=== PATIENT | female | born 1955 | race Caucasian/White ===

== ENCOUNTER 2017-08-24 17:16 | Inpatient (IN) | payer OTHER ==
[~2017-08-24] VITALS: Ht 160 cm; Wt 70.4 kg
--- NOTE | 2017-08-24 17:26 | ED DYSPNEA/ASTHMA COMPLAINT ---
History of Present Illness General Chief Complaint: Dyspnea (COPD, CHF, Other) Stated Complaint: SENT BY CT SCAN, +PE Source: patient, family Exam Limitations: no limitations Allergies Coded Allergies: hydromorphone (Severe, SEVERE REACTION (UNKNOWN) 08/24/17) codeine (UNKNOWN 08/24/17) imipenem (UNKNOWN 08/24/17) latex (UNKNOWN 08/24/17) Reconcile Medications Apixaban (Eliquis) 5 MG TABLET 1 TAB PO SEE ADMIN CRITERIA PULMONARY EMBOLUS See instructions below, Aspirin (Ecotrin*) 81 MG TABLET.DR 1 TAB PO DAILY PREVENTION (Reported) Carvedilol 6.25 MG TABLET 1 TAB PO BID HEART HEALTH Cholecalciferol (Vitamin D3) (Vitamin D-3) 2,000 UNIT TABLET 2 TAB PO DAILY SUPPLEMENT (Reported) Cyanocobalamin (Vitamin B-12) (Vitamin B-12) 500 MCG TABLET 1 TAB PO BID SUPPLEMENT (Reported) Diphenhydramine HCl 50 MG CAPSULE 50 MG PO Q6 PRN ITCHING Empagliflozin (Jardiance) 25 MG TABLET 1 TAB PO DAILY DIABETES (Reported) Ethacrynic Acid (Edecrin) 25 MG TABLET 2 TAB PO DAILY HEART Please take as directed. Gabapentin (Neurontin) 300 MG CAPSULE 1 CAP PO 4 TIMES/DAY NEUROPATHY ( Reported) Glimepiride 4 MG TABLET 1 TAB PO AD DIABETES (Reported) TAKE 2 MG IN AM AND 4 MG IN PM Hydrocortisone 1 % CREAM..G. 1 ZULMA TOP TIDPRN PRN ITCHING Please do not use on the face Hydroxyzine Hydrochloride (Atarax) 25 MG TAB 1 TAB PO 4 TIMES/DAY PRN ITCHING Please take as directed only. Lorazepam 0.5 MG TABLET 1 TAB PO BIDP PRN ANXIETY (Reported) Losartan Potassium 25 MG TABLET 1 TAB PO AT BEDTIME BLOOD PRESSURE (Reported) Lovastatin 40 MG TABLET 2 TAB PO DAILY CHOLESTEROL (Reported) with food Nortriptyline HCl (Pamelor) 50 MG CAPSULE 1 CAP PO QHS NEUROPATHY (Reported) Pyridoxine HCl (Vitamin B-6) 50 MG TABLET 1 TAB PO 3XW SUPPLEMENT (Reported) Sertraline HCl 100 MG TABLET 1 TAB PO DAILY MOOD (Reported) Sitagliptin Phosphate (Januvia) 100 MG TABLET 1 TAB PO DAILY DIABETES ( Reported) Solifenacin Succinate (Vesicare) 5 MG TABLET 1 TAB PO DAILY BLADDER (Reported ) Triage Nurses Notes Reviewed? yes Onset: Gradual Duration: week(s): (1-2) Timing: no prior history Severity: moderate Activities at Onset: none Prior Episodes/Possible Cause: no prior episodes Modifying Factors: Improves With: immobilization. Worsens With: movement. Associated Symptoms: cough HPI: Patient is a 62-year-old female with remote history of spinal blood clot in 2002 presenting to the emergency department with chief complaint of increasing shortness of breath, epigastric discomfort and fluttering in her chest has been going on intermittently over the past 2 weeks. Symptoms worse with exertion. Patient is wheelchair bound secondary to residual symptoms from previous blood clot in her spinal cord. Patient denies any fevers or chills. Positive dry cough. Patient also reports increasing swelling in the lower ext bilaterally, right greater than left. (Zuri Roman) Vital Signs & Intake/Output Vital Signs & Intake/Output Vital Signs Date Time Temp Pulse Resp B/P B/P Pulse O2 O2 Flow FiO2 Mean Ox Delivery Rate 08/24 2112 116 18 118/74 97 Room Air 08/24 2021 97.7 59 16 131/60 93 Room Air 08/24 1801 98 Room Air 08/24 1725 96.9 118 20 101/55 97 Room Air Room Air (Yash Mcgee DO) Past History Travel History Traveled to [place] past 21 day No Medical History Any Pertinent Medical History? see below for history History of MRSA: No History of VRE: No History of CDIFF: No Surgical History Surgical History: non-contributory Psychosocial History Who do you live with Patient/Self Services at Home None What is your primary language Swedish Family History Hx Contributory? No (Zuri Roman) Review of Systems Review of Systems Constitutional: Reports: see HPI. Comments Review of systems: See HPI, All other systems negative. Constitutional, no chills fever or weight loss HEENT: No visual changes no sore throat no congestion Cardiovascular: No chest pain ,palpitation , orthopnea Skin, no jaundice no rashes Respiratory: No sputum or hemoptysis GI: No nausea no vomiting : No dysuria No hematuria Muscle skeletal: no back pain, no neck pain, Neurologic: No numbness no confusion, no headaches Psych: No stress anxiety or depression,. Heme/endocrine: No bruising no bleeding no polyuria or polydipsia Immunology: No splenectomy or history of AIDS (Norman FORRESTER,Zuri) Physical Exam Physical Exam General Appearance: well developed/nourished, no apparent distress, alert, awake , comfortable Respiratory: normal breath sounds, chest non-tender, no respiratory distress Comments: Well-developed well-nourished person in no acute distress HEENT: Pupils equally round and reactive to light and accommodation. Nose is atraumatic. External auditory canal and Tympanic membranes clear. Pharynx normal. No swelling or edema. Neck: Supple, no lymphadenopathy Back: Nontender Cardiovascular: Tachycardic rate and rhythms no murmurs rubs or gallops, normal JVP Respiratory:No respiratory distress.breath sounds clear to auscultation bilaterally Abdomen: Soft, nontender nondistended, no appreciable organomegaly. Normal bowel sounds. No ascites Rectal: Brown stool, guaiac-negative. Extremity: 3+ pitting edema in the lower extremities bilaterally, right greater than left. No calf tenderness to palpation, normal and equal pulses. Poor muscle tone noted in the lower extremities bilaterally secondary to residual symptoms. Neuro: Alert oriented x3, residual deficits in the lower extremities bilaterally secondary to old stroke. Skin: No appreciable rash on exposed skin, skin is warm and dry. Psych: Mood and affect is normal, memory and judgment is normal. Core Measures ACS in differential dx? Yes CVA/TIA Diagnosis No Sepsis Present: No Sepsis Focused Exam Completed? No (Zuri Roman) Progress Differential Diagnosis: asthma, AMI, bronchitis, COPD, pulmonary embolism, pneumonia Diagnostic Imaging: Viewed by Me: CT Scan. Discussed w/RAD: CT Scan. Radiology Impression: PATIENT: VIDYA FREEMAN PRESENT AGE: 62 PATIENT ACCOUNT NO: [id number] : 53 LOCATION: [facility] ORDERING PHYSICIAN: Zuri FORRESTER SERVICE DATE: 08/24/17 EXAM TYPE: US - US-EXT BILAT VENOUS DOPPLER EXAMINATION: US TRIPLEX OF LOWER EXTREMITIES, BILATERAL CLINICAL INFORMATION: Bilateral lower extremity swelling. Patient with a pulmonary embolism. COMPARISON: 09/12/2012 TECHNIQUE: Color-flow triplex imaging with spectral analysis and compression Doppler were performed on the bilateral lower extremities. FINDINGS: Respiratory variation, normal compression and augmented flow are noted throughout the bilateral lower extremities. The visualized common femoral vein, superficial femoral vein, profunda femoral vein, popliteal vein and midcalf peroneal and posterior tibial venous segments show no evidence of deep venous thrombosis. There is no Spencer's cyst. IMPRESSION: Normal triplex scan without evidence of deep venous thrombosis involving the bilateral lower extremities. DICTATED BY: Zunilda BORDEN,Tao DATE/TIME DICTATED:08/24/172100 NATURAL GAS TREATING UNIT OPERATOR:ERWIN DATE/TIME TRANSCRIBED:08/24/172100 CONFIDENTIAL, DO NOT COPY WITHOUT APPROPRIATE AUTHORIZATION. <Electronically signed in Other Vendor System> Initial ED EKG: SINUS TACH 114 BPM (Norman FORRESTER,Zuri) Plan of Care: Orders Procedure Date/time Status Consistent Carbohydrate 1 08/25 B Active TROPONIN LEVEL 08/25 599 Active ICU LAB BUNDLE 08/25 599 Active CBC WITHOUT DIFFERENTIAL 08/25 599 Active EKG 08/25 599 Active TROPONIN LEVEL 08/24 2355 Active EKG 08/24 2355 Active Intake & Output 08/24 203 Active Pathway - chart 08/24 2025 Active URINALYSIS 08/24 202 Active Patient Data 08/24 1949 Active Add-on Test (ER Only) 08/24 1857 Active ECHOCARDIOGRAM 08/24 1837 Active Admit to inpatient 08/24 1829 Active Vital Signs 08/24 1829 Active Code Status 08/24 1829 Active Tom, Insertion/Removal/Asses 08/24 1755 Active CULTURE,URINE 08/24 1755 Active B-TYPE NATRIURETIC PEP (BNP) 08/24 1727 Complete Telemetry/Maintenance Leader 08/24 1723 Active TROPONIN LEVEL 08/24 1723 Complete PARTIAL THROMBOPLASTIN TIME 08/24 1723 Complete PROTHROMBIN TIME 08/24 1723 Complete COMPREHENSIVE METABOLIC PANEL 08/24 1723 Complete CBC WITHOUT DIFFERENTIAL 08/24 1723 Complete EKG 08/24 1723 Active TRC EVALUATION (GEN) 08/24 UNK Active House Staff 08/24 UNK Active FingerStick- Glucose 08/24 UNK Active Current Medications Sig/Pita Start time Last Medication Dose Stop Time Status Admin Aspirin Buffered 81 MG DAILY 08/25 1000 UNVr (Ecotrin) Cholecalciferol 4,000 IU DAILY 08/25 1000 AC (Vitamin D) Pyridoxine HCl 50 MG DAILY 08/25 1000 AC (Vitamin B6) Sertraline HCl 100 MG DAILY 08/25 1000 AC (Zoloft) Trimethoprim/ 1 TAB DAILY 08/25 1000 AC Sulfamethoxazole 08/26 0959 (Bactrim SS) Insulin Aspart 0 TIDAC 08/25 799 CAN (NovoLOG) Insulin Aspart 0 TIDAC 08/25 08 AC (NovoLOG) Cyanocobalamin 500 MCG BID 08/24 2199 AC (Vitamin B12) Gabapentin 300 MG 4 TIMES/DAY 08/24 2199 AC (Neurontin) Insulin Aspart 0 AT BEDTIME 08/24 2199 AC (NovoLOG) Lorazepam 0.5 MG BID PRN 08/24 2199 AC (Ativan) 08/31 2058 Nortriptyline HCl 50 MG AT BEDTIME 08/24 2199 AC (Aventyl 50MG - Pamelor Cap) Oxybutynin Chloride 2.5 MG BID 08/24 2199 AC (Ditropan 2.5MG Tab(1/2 of a 5mg tab)) Atorvastatin Calcium 20 MG 1700 08/24 2099 UNVr (Lipitor) Acetaminophen 650 MG Q6P PRN 08/24 2029 UNVr (Tylenol) Morphine Sulfate 2 MG Q4P PRN 08/24 2029 AC (Morphine) Heparin Sodium 25,000 UNIT Q24H 08/24 1800 UNVr 08/24 (Porcine) 1929 (Heparin) Sodium Chloride 500 ML Laboratory Tests 08/24/17 1727: Anion Gap 15, Estimated GFR > 60, BUN/Creatinine Ratio 38.3 H, Glucose 112 H, Calcium 9.4, Total Bilirubin 0.6, AST 41 H, ALT 48, Alkaline Phosphatase 98, Troponin I < 0.01, Maj-R-Irsmkozeigd Pept 1530 H, Total Protein 6.9, Albumin 4.1, Globulin 2.8, Albumin/Globulin Ratio 1.5, PT 14.3 H, INR 1.37 H, APTT 27, CBC w Diff NO MAN DIFF REQ, RBC 5.10, MCV 76.6 L, MCH 24.1 L, MCHC 31.5 L, RDW 17.0 H, MPV 8.9, Gran % 78.7 H, Lymphocytes % 14.9 L, Monocytes % 5.2, Eosinophils % 0.8, Basophils % 0.4, Absolute Granulocytes 5.4, Absolute Lymphocytes 1.0 L, Absolute Monocytes 0.4, Absolute Eosinophils 0.1, Absolute Basophils 0 Microbiology 08/24 2008 URINE ROUT: Urine Culture - RECD Patient had outpatient CTA done, positive for pulmonary embolus. Patient will be admitted for IV heparin. Patient stable. Seen by Dr. Mcgee. (Zuri Roman) (Yash Mcgee DO) Departure Departure Time of Disposition: 1726 Disposition: STILL A PATIENT Condition: Stable Clinical Impression Primary Impression: Pulmonary embolus Qualifiers: Pulmonary embolism type: other Chronicity: acute Acute cor pulmonale presence: without acute cor pulmonale Qualified Code: I26.99 - Other pulmonary embolism without acute cor pulmonale Referrals: Tobin Heriberto BORDEN (PCP/Family) Departure Forms: Customer Survey General Discharge Information Prescriptions: Current Visit Scripts Diphenhydramine HCl 50 MG PO Q6 PRN ITCHING #20 TAB Carvedilol 1 TAB PO BID #30 TAB Apixaban (Eliquis) 1 TAB PO SEE ADMIN CRITERIA #60 TAB See instructions below, Hydroxyzine Hydrochloride (Atarax) 1 TAB PO 4 TIMES/DAY PRN ITCHING #30 TAB Please take as directed only. Ethacrynic Acid (Edecrin) 2 TAB PO DAILY #60 TAB Please take as directed. Hydrocortisone 1 ZULMA TOP TIDPRN PRN ITCHING #1 TUBE Please do not use on the face Admission Note Documentation of Exam: Documentation of any treatments & extenuating circumstances including Concerns Regarding Discharge (functional status, medication knowledge or non-compliance, living conditions, etc.) that warrant an admission rather than observation: DR GRANDE INFORMED. (Zuri Roman) Admission Note Spoke With: Matthieu Silveira MD Documentation of Exam: Documentation of any treatments & extenuating circumstances including Concerns Regarding Discharge (functional status, medication knowledge or non-compliance, living conditions, etc.) that warrant an admission rather than observation: [THE PATIENT NEEDS ADMISSION FOR CARDIOLOGY AND PULMONARY CONSULTS, ICU ADMISSION, LE US, ECHO, ] SPOKE TO DR BUENO. DR GRANDE PAGEMelissa, HEPARIN ORDERED. PA/POURED PIPE MAKER Co-Sign Statement Statement: ED Attending supervision documentation- [X] I saw and evaluated the patient. I have also reviewed all the pertinent lab results and diagnostic results. I agree with the findings and the plan of care as documented in the PA's/POURED PIPE MAKER's documentation. [] I have reviewed the ED Record and agree with the PA's/POURED PIPE MAKER's documentation. [] Additions or exceptions (if any) to the PAs/POURED PIPE MAKER's note and plan are summarized below: [] (Yash Mcgee DO) Critical Care Note Critical Care Note Critical Care Time: 30-74 min (Norman FORRESTER,Zuri)
[2017-08-24 17:40] LABS: ABSOLUTE BASOPHIL COUNT 0 /CUMM (0.0-0.2); ABSOLUTE EOSINOPHIL COUNT 0.1 /CUMM (0.0-0.7); ABSOLUTE GRANULOCYTE CT 5.4 /CUMM (1.4-6.5); ABSOLUTE MONOCYTE COUNT 0.4 /CUMM (0.10-0.60); BASOPHIL % 0.4 % (0.0-2.0); EOSINOPHIL % 0.8 % (0-5); GRANULOCYTE % 78.7 % (42.2-75.2); HEMATOCRIT 39.1 % (37-47); MEAN CORPUSCULAR HGB 24.1 PG (27.0-31.0); MEAN CORPUSCULAR HGB CONC 31.5 G/DL (33.0-37.0); MEAN CORPUSCULAR VOLUME 76.6 FL (81.0-99.0); MEAN PLATELET VOLUME 8.9 FL (7.4-10.4); PLATELET COUNT 219 /CUMM (130-400); WHITE BLOOD CELL COUNT 6.9 /CUMM (4.8-10.8)
[2017-08-24 17:49] LABS: PT 14.3 SEC (9.4-12.5); PTT 27 SEC (25-37)
--- NOTE | 2017-08-24 19:54 | History & Physical ---
[place] BORDEN,[facility] 08/24/17 [facility]: General Information and [facility] MD Statement: I have seen and personally examined VIDYA FREEMAN and documented this H&P. The patient is a 62 year old F who presented with a patient stated chief complaint of [Shortness of breath, leg swelling, cough]. Source of Information: patient, family Exam Limitations: no limitations History of Present Illness: The patient is a 62-year-old woman with a past medical history of asthma, paraplegia status post spinal infarct in 2001, homocystinemia, diabetes, peripheral neuropathy, urinary incontinence, hypertension, diabetes, pseudo-gout , and gallstone pancreatitis hospital post cholecystectomy in 2012. She presents today with an 8 day history of shortness of breath that is worse on exertion with occasional nonproductive cough. She developed shortness of breath at home with associated worsening on exertion and relief when she stops to rest. She denied chest pains, lightheadedness or palpitations but did admit to bilateral leg swelling (right greater than left ) since the past 2 weeks which is worse than her baseline. Of note patient is paraplegic and does not feel pain sensations below the waist. She denied orthopnea. She did have a nonproductive cough for the past 8 days, but denied nasal congestion, fevers or chills. She denied loss of appetite, nausea or vomiting or change in bowel movements. She denies change in color of her urine and is on a self- catheterization protocol for urination. sHe denies headaches or new weakness in any part of the body. overall shortness of breath she presented to our primary care physician Dr. oTbin's office and was sent for a CT angiogram by his PA Jailene Richter. CT angiogram showed cardiomegaly and scattered bilateral bilateral pulmonary embolism and suggestions of elevated right-sided pressure. She was then sent to the ER for further evaluation and management. Allergies/Medications Allergies: Coded Allergies: hydromorphone (Severe, SEVERE REACTION (UNKNOWN) 08/24/17) codeine (UNKNOWN 08/24/17) imipenem (UNKNOWN 08/24/17) latex (UNKNOWN 08/24/17) Home Med list Aspirin (Ecotrin*) 81 MG TABLET. 1 TAB PO DAILY PREVENTION (Reported) Cholecalciferol (Vitamin D3) (Vitamin D-3) 2,000 UNIT TABLET 2 TAB PO DAILY SUPPLEMENT (Reported) Cyanocobalamin (Vitamin B-12) (Vitamin B-12) 500 MCG TABLET 1 TAB PO BID SUPPLEMENT (Reported) Empagliflozin (Jardiance) 25 MG TABLET 1 TAB PO DAILY DIABETES (Reported) Gabapentin (Neurontin) 300 MG CAPSULE 1 CAP PO 4 TIMES/DAY NEUROPATHY ( Reported) Glimepiride 4 MG TABLET 1 TAB PO AD DIABETES (Reported) TAKE 2 MG IN AM AND 4 MG IN PM Lorazepam 0.5 MG TABLET 1 TAB PO BIDP PRN ANXIETY (Reported) Losartan Potassium 25 MG TABLET 1 TAB PO AT BEDTIME BLOOD PRESSURE (Reported) Lovastatin 40 MG TABLET 2 TAB PO DAILY CHOLESTEROL (Reported) with food Nortriptyline HCl (Pamelor) 50 MG CAPSULE 1 CAP PO QHS NEUROPATHY (Reported) Pyridoxine HCl (Vitamin B-6) 50 MG TABLET 1 TAB PO 3XW SUPPLEMENT (Reported) Sertraline HCl 100 MG TABLET 1 TAB PO DAILY MOOD (Reported) Sitagliptin Phosphate (Januvia) 100 MG TABLET 1 TAB PO DAILY DIABETES ( Reported) Solifenacin Succinate (Vesicare) 5 MG TABLET 1 TAB PO DAILY BLADDER (Reported ) Sulfamethoxazole/Trimethoprim (Bactrim 400-80 MG Tablet) 400 MG-80 MG TABLET 1 TAB PO DAILY PREVENTION OF INFECTION (Reported) Past History Travel History Traveled to [place] past 21 day No Medical History Neurological: NONE, SPINAL BLOOD CLOT EENT: NONE Cardiovascular: hypertension, hyperlipidemia Respiratory: asthma Gastrointestinal: GERD Hepatic: NONE Renal: SELF CATH Musculoskeletal: NONE Psychiatric: NONE Endocrine: diabetes Blood Disorders: SPINAL CLOT Cancer(s): NONE History of MRSA: No History of VRE: No History of CDIFF: No Surgical History Surgical History: cholecystectomy Past Family/Social History Psychosocial History Services at Home: None ETOH Use: denies use Illicit Drug Use: denies illicit drug use Review of Systems Review of Systems Constitutional: Reports: see HPI. Denies: fever, malaise, weakness. Exam & Diagnostic Data Last 24 Hrs of Vital Signs/I&O Vital Signs Date Time Temp Pulse Resp B/P B/P Pulse O2 O2 Flow FiO2 Mean Ox Delivery Rate 08/24 2112 116 18 118/74 97 Room Air 08/24 2021 97.7 59 16 131/60 93 Room Air 08/24 1801 98 Room Air 08/24 172 96.9 118 20 101/55 97 Room Air Room Air Physical Exam General Appearance Alert, Oriented X3, Cooperative, No Acute Distress Skin No Rashes Skin Temp/Moisture Exam: Warm/Dry Sepsis Skin Exam (color): Normal for Ethnicity HEENT Atraumatic, PERRLA, EOMI, Dry mucus membranes Neck Supple, No JVD, No thryomegaly, +2 Carotid Pulse wo Bruit Lymphatic Cervical nl Cardiovascular Regular Rate, Normal S1, Normal S2 Lungs Normal Air Movement, Bibasilar coarse crepitations Abdomen Normal Bowel Sounds, Soft, No Tenderness, No Hepatospenomegaly, No Masses Neurological Hypotonia and grade 0/5 power in bilateral lower limbs, Reduced sensation in bilateral lower limbs worse in left Extremities Right big toe and 3rd toe has neuropathic ulcers covered with bandaids, Bilateral +2 pitting pedal edema and some mild erythema in both lower limbs Vascular Normal Pulses Last 24 Hrs of Labs/Phliip: Laboratory Tests 08/24/17 1727: Anion Gap 15, Estimated GFR > 60, BUN/Creatinine Ratio 38.3 H, Glucose 112 H, Calcium 9.4, Total Bilirubin 0.6, AST 41 H, ALT 48, Alkaline Phosphatase 98, Troponin I < 0.01, [id number] Pept 1530 H, Total Protein 6.9, Albumin 4.1, Globulin 2.8, Albumin/Globulin Ratio 1.5, PT 14.3 H, INR 1.37 H, APTT 27, CBC w Diff NO MAN DIFF REQ, RBC 5.10, MCV 76.6 L, MCH 24.1 L, MCHC 31.5 L, RDW 17.0 H, MPV 8.9, Gran % 78.7 H, Lymphocytes % 14.9 L, Monocytes % 5.2, Eosinophils % 0.8, Basophils % 0.4, Absolute Granulocytes 5.4, Absolute Lymphocytes 1.0 L, Absolute Monocytes 0.4, Absolute Eosinophils 0.1, Absolute Basophils 0 Microbiology 08/24 2008 URINE ROUT: Urine Culture - RECD Diagnostic Data EKG Results EKG shows sinus tachycardia with heart rate of 1 22 bpm QTC [address] segment changes and no Q waves similar to previous. Assessment/Plan Assessment: The patient is a 62-year-old woman with a past medical history of asthma, paraplegia status post spinal infarct in 2001, homocystinemia, diabetes, peripheral neuropathy, urinary incontinence, hypertension, diabetes, pseudo-gout , and gallstone pancreatitis hospital post cholecystectomy in 2013. She presents today with an 8 day history of shortness of breath that is worse on exertion with occasional nonproductive cough. A CT angiogram of her chest showed scattered bilateral pulmonary embolisms along with Cardiomegaly and some signs of elevated RV pressures. She'll be admitted and monitored closely in the ICU for a pulmonary embolism. Intravenous anticoagulation will be started with IV heparin. Of note, she does after to have a past history of thromboembolic events with spinal cord infarct and possible homocystinemia so she will likely have to be anticoagulated on a long-term basis. Problem list 1. Bilateral pulmonary embolism with history of previous thromboembolic events and homocystinemia 2. Hypertension 3. Diabetes mellitus with peripheral neuropathy 4. Paraplegia status post spinal cord infarct 5. History of asthma with emphysema on CT scan of chest 6. Depression 7. Ex-smokerquit 2 weeks ago Plan 1. Bilateral pulmonary embolism with history of previous thromboembolic events and homocystinemia * Admit to ICU * Start IV heparin drip for anticoagulation with pulmonary embolism protocol * Monitor vital signs closely and if desaturates or has hypotension will consider TPA infusion * Echocardiogram now to assess for * Doppler ultrasound of lower limb * Serial EKGs and troponins * Cardiology consultation * Hold losartan home medication on account of normal blood pressures at this time * Monitor CBC for anemia and pancytopenia while on heparin therapy * Patients Pro BNP was elevated at 1530 pg/ml which could be reflective of her pulmonary embolism or overt heart failure 2. Hypertension * Hold losartan home medication on account of normal blood pressures at this time 3. Diabetes mellitus with peripheral neuropathy * Hold home medication of Januvia, glimepiride and Jardiance * Accu-Cheks 3 times a day before meals at bedtime * Start NovoLog sliding scale 3 times a day before meals at bedtime * Diabetic diet * Continue gabapentin and nortriptyline for neuropathic 4. Paraplegia status post spinal cord infarct * Offloading pressure points with heel pads as patient is paraplegic * Daily dressing for Right toe ulcers (Big toe and 3rd toe) 5. History of asthma with emphysema on CT scan of chest * [facility] evaluation for nebulizer therapy * Oxygen as needed to keep PO2 greater than 92% 6. Depression * Continue by mouth sertraline 7. Ex-smokerquit 2 weeks ago * Patient refused nicotine patch DVT prophylaxis IV heparin drip CODE STATUS: Patient is full code As Ranked By This Provider Problem List: 1. Pulmonary embolus Qualifiers Pulmonary embolism type: other Chronicity: acute Acute cor pulmonale presence: without acute cor pulmonale Qualified Code: I26.99 - Other pulmonary embolism without acute cor pulmonale 2. history of thrombosis 3. Homocystinemia 4. Depression 5. Benign essential hypertension Core Measures/Misc (04/04) Acute Coronary Syndrome ACS Diagnosis: No Congestive Heart Failure Congestive Heart Failure Diagnosis No Cerebrovascular Accident CVA/TIA Diagnosis: No VTE (View Protocol) VTE Risk Factors VTE (Previous) No Mechanical VTE Prophylaxis d/t N/A MechProphylax Ordered No VTE Pharm Prophylaxis d/t NA PharmProphylax ordered Sepsis (View protocol) Sepsis Present: No Jordana,Aartee 08/25/17 0318: Attending MD Review Statement Attending Statement Attending MD Statement: examined this patient, discuss w/resident/PA/LETTUCE CUTTER, agreed w/resident/PA/LETTUCE CUTTER, reviewed EMR data (avail), reviewed images, amended to note Attending Assessment/Plan: CC: SOB PMH: Paraplegia SBP spinal artery infarction in 2001, ?homocystinemia, DM, pseudogout, urinary incontinence a straight cath, HTN, HLD, S/P cholecystectomy Patient came to ER for shortness of breath for a few days duration and abdominal pain felt like a gallbladder attack. Shortness of breath started approximately a couple of weeks back, she was trying to make an appointment with primary care physician. She was seen today and CT chest was obtained which showed pulmonary embolism so she was sent to ER. Patient states that her shortness of breath is more on exertion, eventually even minimal activity was making her short of breath . Patient denies any chest pain, chest tightness, nausea, vomiting, dizziness, presyncopal, and loss of consciousness, fever, chills, night sweats, unintentional weight loss. Patient is wheelchair-bound secondary to paraplegia. Over a longer duration she has noticed gradual worsening of lower extremity swelling. Vitals: Temperature 96.9, pulse 118, RR 20, blood pressure 101/55, saturating 97 % on room air On exam: A O 3, cooperative, no acute distress, neck supple, JVD normal, no lymphadenopathy, mucosa dry, no focal neurological deficit, bilateral lower extremity edema right more than left, no obvious skin rashes or inflammation CVS : S1-S2, RRR, tachycardia. RS: Minimal crackles bilaterally bases. Abdomen: Soft , NT, ND, bowel sounds present. Labs: WBC 6.9, hemoglobin 12.3, hematocrit 39.1, platelet 219, neutrophils 78%, sodium 144, potassium 4.5, chloride 104, bicarbonate 25, BUN 23, creatinine 0.6, glucose 112, calcium 9.4, LFT unremarkable, troponin less than 0.01, proBNP INR 1.37 CTA chest: 1. Scattered bilateral pulmonary emboli. 2. Cardiomegaly. Reflux of contrast into the inferior vena cava and hepatic veins suggests presence of tricuspid regurgitation and elevated right-sided cardiac pressures. No inward bowing of the interventricular septum. The RV/LV ratio is normal. 3. Mild pulmonary emphysema. 4. Small right pleural effusion. 5. Within the upper abdomen, the finding of pneumobilia is likely secondary to prior papillotomy. 2-D echo: Mild left ventricular dilatation. Moderately reduced global left ventricular systolic function. Moderately abnormal left ventricular ejection fraction estimated at 35-40%. No obvious regional wall motion abnormalities. Mild to moderate left atrial dilatation. Mild thickening/calcification of the mitral valve leaflets. Moderate to marked mitral regurgitation. Structurally normal trileaflet aortic valve. No aortic stenosis. There is mild aortic regurgitation. Right ventricular systolic pressure estimated to be elevated at 50- 55 mmHg. Moderate pulmonary hypertension. Dilated IVC. DVT Doppler: Normal triplex scan without evidence of deep venous thrombosis involving the bilateral lower extremities. Assessment and plan 62 year old female, wheelchair-bound, extensive past medical history presented to ER after diagnosis of pulmonary embolism on CTA. Patient had been noticing worsening of shortness of breath, more so with the exertion, followed up with primary care physician who obtained CTA. Patient states that she had clot in her spinal artery for which she developed infarct and paraplegia, at that time she was thoroughly investigated for hypercoagulability. She was suspected to have homocystinemia but no certain diagnosis was done. CTA suggests right heart strain. No acute ECG changes, hemodynamically stable, no excessive oxygen requirement. But given her right heart strain we will monitor her in the ICU, hourly vitals. On-call critical care had been informed. + Acute bilateral pulmonary embolism + Suspected right heart strain + History of Paraplegia SBP spinal artery infarction in 2001, ?homocystinemia, DM, pseudogout, urinary incontinence a straight cath, HTN, HLD, S/P cholecystectomy - Admit to ICU - vitals every hourly - Watch for hypoxia - Serial troponin and EKGs - Cardiology consult - Pulmonary consult - Continue heparin - Hold oral hypoglycemics - Continue sliding scale insulin - Hold antihypertensives for tonight, a blood pressure stable overnight dressing from tomorrow - Adequate pain control - Obtain UA - Continue Tom catheter
--- NOTE | 2017-08-24 19:55 | Cons- CRCU ---
Savannah BORDEN,[facility] 08/24/17 [facility]: General Information and HPI Consulting Request Date of Consult: 08/24/17 Requested By: Dr. Silveira Reason for Consult: Bilateral pulmonary embolism Source of Information: patient, family Exam Limitations: no limitations History of Present Illness: The patient is a 62-year-old woman with a past medical history of asthma, paraplegia status post spinal infarct in 2001, homocystinemia, diabetes, peripheral neuropathy, urinary incontinence, hypertension, diabetes, pseudo-gout , and gallstone pancreatitis hospital post cholecystectomy in 2012. She presents today with an 8 day history of shortness of breath that is worse on exertion with occasional nonproductive cough. She developed shortness of breath at home with associated worsening on exertion and relief when she stops to rest. She denied chest pains, lightheadedness or palpitations but did admit to bilateral leg swelling (right greater than left ) since the past 2 weeks which is worse than her baseline. Of note patient is paraplegic and does not feel pain sensations below the waist. She denied orthopnea. She did have a nonproductive cough for the past 8 days, but denied nasal congestion, fevers or chills. She denied loss of appetite, nausea or vomiting or change in bowel movements. She denies change in color of her urine and is on a self- catheterization protocol for urination. sHe denies headaches or new weakness in any part of the body. overall shortness of breath she presented to our primary care physician Dr. Tobin's office and was sent for a CT angiogram by his PA Jailene Richter. CT angiogram showed cardiomegaly and scattered bilateral bilateral pulmonary embolism and suggestions of elevated right-sided pressure. She was then sent to the ER for further evaluation and management. Allergies/Medications Allergies: Coded Allergies: hydromorphone (Severe, SEVERE REACTION (UNKNOWN) 08/24/17) codeine (UNKNOWN 08/24/17) imipenem (UNKNOWN 08/24/17) latex (UNKNOWN 08/24/17) Home Med List: Aspirin (Ecotrin*) 81 MG TABLET.DR 1 TAB PO DAILY PREVENTION (Reported) Cholecalciferol (Vitamin D3) (Vitamin D-3) 2,000 UNIT TABLET 2 TAB PO DAILY SUPPLEMENT (Reported) Cyanocobalamin (Vitamin B-12) (Vitamin B-12) 500 MCG TABLET 1 TAB PO BID SUPPLEMENT (Reported) Empagliflozin (Jardiance) 25 MG TABLET 1 TAB PO DAILY DIABETES (Reported) Gabapentin (Neurontin) 300 MG CAPSULE 1 CAP PO 4 TIMES/DAY NEUROPATHY ( Reported) Glimepiride 4 MG TABLET 1 TAB PO AD DIABETES (Reported) TAKE 2 MG IN AM AND 4 MG IN PM Lorazepam 0.5 MG TABLET 1 TAB PO BIDP PRN ANXIETY (Reported) Losartan Potassium 25 MG TABLET 1 TAB PO AT BEDTIME BLOOD PRESSURE (Reported) Lovastatin 40 MG TABLET 2 TAB PO DAILY CHOLESTEROL (Reported) with food Nortriptyline HCl (Pamelor) 50 MG CAPSULE 1 CAP PO QHS NEUROPATHY (Reported) Pyridoxine HCl (Vitamin B-6) 50 MG TABLET 1 TAB PO 3XW SUPPLEMENT (Reported) Sertraline HCl 100 MG TABLET 1 TAB PO DAILY MOOD (Reported) Sitagliptin Phosphate (Januvia) 100 MG TABLET 1 TAB PO DAILY DIABETES ( Reported) Solifenacin Succinate (Vesicare) 5 MG TABLET 1 TAB PO DAILY BLADDER (Reported ) Sulfamethoxazole/Trimethoprim (Bactrim 400-80 MG Tablet) 400 MG-80 MG TABLET 1 TAB PO DAILY PREVENTION OF INFECTION (Reported) Current Medications: Current Medications Sig/Pita Start time Last Medication Dose Route Stop Time Status Admin Acetaminophen 650 MG Q6P PRN 08/24 2030 UNVr PO Aspirin Buffered 81 MG DAILY 08/25 1000 UNVr PO Atorvastatin Calcium 20 MG 1700 08/24 2100 UNVr PO Cholecalciferol 4,000 IU DAILY 08/25 1000 AC PO Cyanocobalamin 500 MCG BID 08/24 2200 AC PO Gabapentin 300 MG 4 TIMES/DAY 08/24 2200 AC PO Heparin Sodium 0 .STK-MED ONE 08/24 1848 DC (Porcine) .ROUTE Heparin Sodium 25,000 UNIT Q24H 08/24 1800 UNVr 08/24 (Porcine) IV 1929 Sodium Chloride 500 ML Heparin Sodium 5,000 UNIT ONCE ONE 08/24 1800 DC 08/24 (Porcine) IV 08/24 1801 1929 Insulin Aspart 0 TIDAC 08/25 0800 CAN SC Insulin Aspart 0 TIDAC 08/25 0800 AC SC Insulin Aspart 0 AT BEDTIME 08/24 2200 AC SC Lorazepam 0.5 MG BID PRN 08/24 2200 AC PO 08/31 2058 Morphine Sulfate 2 MG Q4P PRN 08/24 2030 AC IV Nortriptyline HCl 50 MG AT BEDTIME 08/24 2199 AC PO Oxybutynin Chloride 2.5 MG BID 08/24 2199 AC PO Pyridoxine HCl 50 MG DAILY 08/25 1000 AC PO Sertraline HCl 100 MG DAILY 08/25 1000 AC PO Trimethoprim/ 1 TAB DAILY 08/25 1000 AC Sulfamethoxazole PO 08/26 0959 Review of Systems Review of Systems Constitutional: Reports: see HPI. Denies: chills, fever. Past History Travel History Traveled to [place] past 21 day No Medical History Neurological: NONE, SPINAL BLOOD CLOT EENT: NONE Cardiovascular: hypertension, hyperlipidemia Respiratory: asthma Gastrointestinal: GERD Hepatic: NONE Renal: SELF CATH Musculoskeletal: NONE Psychiatric: NONE Endocrine: diabetes Blood Disorders: SPINAL CLOT Cancer(s): NONE Surgical History Surgical History: non-contributory Psychosocial History Services at Home: None ETOH Use: denies use Illicit Drug Use: denies illicit drug use Exam & Diagnostic Data Last 24 Hrs of Vital Signs/I&O Vital Signs Date Time Temp Pulse Resp B/P B/P Pulse O2 O2 Flow FiO2 Mean Ox Delivery Rate 08/24 2113 116 18 118/74 97 Room Air 08/24 2021 97.7 59 16 131/60 93 Room Air 08/24 1801 98 Room Air 08/24 172 96.9 118 20 101/55 97 Room Air Room Air Physical Exam General Appearance: well developed/nourished, alert, awake, comfortable Head: atraumatic, normal appearance Eyes: Bilateral: PERRL, EOMI, other (Mild anisocoria R>L). Ears, Nose, Throat: normal pharynx, normal ENT inspection, Dry bucal mucosa Neck: normal inspection, supple Respiratory: chest non-tender, decreased breath sounds (in the lung bases bilaterally), crackles (bibasilar) Cardiovascular: regular rate/rhythm, edema Gastrointestinal: normal bowel sounds, soft, non-tender, no organomegaly Extremities: pedal edema, ulcers on right big and third toes covered with Band- Aid Neurologic/Psych: awake, alert, catheterization laboratory technician II-XII nml as tested, no facial droop or asymmetry, hyponatremia and grade 0 over 5 power in both lower limbs Cranial Nerves: normal speech, PERRL, abnormal pupil position (slight anisocoria R>L), hearing deficit (R) Last 48 Hrs of Labs/Philip: Laboratory Tests 08/24/17 1727: Anion Gap 15, Estimated GFR > 60, BUN/Creatinine Ratio 38.3 H, Glucose 112 H, Calcium 9.4, Total Bilirubin 0.6, AST 41 H, ALT 48, Alkaline Phosphatase 98, Troponin I < 0.01, [id number] Pept 1530 H, Total Protein 6.9, Albumin 4.1, Globulin 2.8, Albumin/Globulin Ratio 1.5, PT 14.3 H, INR 1.37 H, APTT 27, CBC w Diff NO MAN DIFF REQ, RBC 5.10, MCV 76.6 L, MCH 24.1 L, MCHC 31.5 L, RDW 17.0 H, MPV 8.9, Gran % 78.7 H, Lymphocytes % 14.9 L, Monocytes % 5.2, Eosinophils % 0.8, Basophils % 0.4, Absolute Granulocytes 5.4, Absolute Lymphocytes 1.0 L, Absolute Monocytes 0.4, Absolute Eosinophils 0.1, Absolute Basophils 0 Diagnostic Data EKG Results EKG shows sinus tachycardia with heart rate of 1 22 bpm QTC [address] segment changes and no Q waves similar to previous. Assessment/Plan Impression/Plan: The patient is a 62-year-old woman with a past medical history of asthma, paraplegia status post spinal infarct in 2001, homocystinemia, diabetes, peripheral neuropathy, urinary incontinence, hypertension, diabetes, pseudo-gout , and gallstone pancreatitis hospital post cholecystectomy in 2012. She presents today with an 8 day history of shortness of breath that is worse on exertion with occasional nonproductive cough. A CT and lower chest showed scattered bilateral pulmonary embolisms along with Cardiomegaly and some signs of elevated RV pressures. She'll be admitted and monitored closely in the ICU for a pulmonary embolism. Intravenous anticoagulation will be started with IV heparin. Of note, she does after to have a past history of thromboembolic events with spinal cord infarct and possible homocystinemia so she will likely have to be anticoagulated on a long-term basis. Problem list 1. Bilateral pulmonary embolism with history of previous thromboembolic events and homocystinemia 2. Hypertension 3. Diabetes mellitus with peripheral neuropathy 4. Paraplegia status post spinal cord infarct 5. History of asthma with emphysema on CT scan of chest 6. Depression 7. Ex-smokerquit 2 weeks ago Plan 1. Bilateral pulmonary embolism with history of previous thromboembolic events and homocystinemia * Admit to ICU * Start IV heparin drip for anticoagulation with pulmonary embolism protocol * Monitor vital signs closely and if desaturates or has hypotension will consider TPA infusion * Echocardiogram now to assess for RV strain * Doppler ultrasound of lower limb * Serial EKGs and troponins * Cardiology consultation * Hold losartan home medication on account of normal blood pressures at this time * Monitor CBC for anemia and pancytopenia while on heparin therapy 2. Hypertension * Hold losartan home medication on account of normal blood pressures at this time 3. Diabetes mellitus with peripheral neuropathy * Hold home medication of Januvia, glimepiride and Jardiance * Accu-Cheks 3 times a day before meals at bedtime * Start NovoLog sliding scale 3 times a day before meals at bedtime * Diabetic diet * Continue gabapentin and nortriptyline for neuropathic 4. Paraplegia status post spinal cord infarct * Offloading pressure points with heel pads as patient is paraplegic * Daily dressing for Right toe ulcers 5. History of asthma with emphysema on CT scan of chest * TRC evaluation for nebulizer therapy * Oxygen as needed to keep PO2 greater than 92% 6. Depression * Continue by mouth sertraline 7. Ex-smokerquit 2 weeks ago * Patient refused nicotine patch DVT prophylaxis IV heparin drip CODE STATUS: Patient is full code Consult Acknowledgment - Thank you for your consult request. Lizett BORDEN,[facility] 08/25/17 1108: Assessment/Plan Other Findings/Comments: I have personally seen and examined the patient. I agree with the assessment and plan as detailed above. I discussed the case with the ED physician and the medicine team. I discussed the plan of care house staff and asked them to contact me should the patient's conditon change or deteroriate. Monitor in the CRCU for now. Consult Acknowledgment - Thank you for your consult request.
[2017-08-24] MEDS ORDERED: SERTRALINE HCL100 MG PO (20:30)
[2017-08-24] MEDS ORDERED: VESICARE5 M1 PO (20:31)
[2017-08-24] MEDS ORDERED: JANUVIA100 M1 PO (20:31)
[2017-08-24] MEDS ORDERED: LOSARTAN POTASS25 M1 PO (20:32)
[2017-08-24] MEDS ORDERED: BACTRIM 400-801 EACH PO (20:35)
[2017-08-24] MEDS ORDERED: NEURONTIN300 M1 PO (20:38)
[2017-08-24] MEDS ORDERED: LOVASTATIN40 M1 PO (20:39)
[2017-08-24] MEDS ORDERED: ASPIRIN EC81 M1 PO (20:40)
[2017-08-24] MEDS ORDERED: VITAMIN B-12500 MC2 PO (20:41)
[2017-08-24] MEDS ORDERED: VITAMIN B-650 M2 PO (20:42)
[2017-08-24] MEDS ORDERED: JARDIANCE25 M1 PO (20:42)
[2017-08-24] MEDS ORDERED: GLIMEPIRIDE4 M1 PO (20:43)
[2017-08-24] MEDS ORDERED: PAMELOR50 M1 PO (20:44)
[2017-08-24] MEDS ORDERED: LORAZEPAM0.5 M1 PO (20:44)
[2017-08-24] MEDS ORDERED: VITAMIN D-32000 UNIT PO (20:46)
--- NOTE | 2017-08-24 21:06 | ULTRASOUND REPORT ---
EXAMINATION: US TRIPLEX OF LOWER EXTREMITIES, BILATERAL CLINICAL INFORMATION: Bilateral lower extremity swelling. Patient with a pulmonary embolism. COMPARISON: 09/12/2012 TECHNIQUE: Color-flow triplex imaging with spectral analysis and compression Doppler were performed on the bilateral lower extremities. FINDINGS: Respiratory variation, normal compression and augmented flow are noted throughout the bilateral lower extremities. The visualized common femoral vein, superficial femoral vein, profunda femoral vein, popliteal vein and midcalf peroneal and posterior tibial venous segments show no evidence of deep venous thrombosis. There is no Spencer's cyst. IMPRESSION: Normal triplex scan without evidence of deep venous thrombosis involving the bilateral lower extremities.
--- NOTE | 2017-08-24 21:34 | ECHOCARDIOGRAM REPORT ---
VIDYA FREEMAN Age: 62 : 1955 Gender: F Exam Date: 08/24/2017 19:48 Exam Location: ER Ht (in): 63 Wt (lb): 150 BSA: 1.76 BP: 101 / 55 Ordering Physician: SALVADOR CASTLE MD Referring Physician: SALVADOR CASTLE MD Technologist: Marta Arango RDCS Room Number: [id number] Indications: SHORTNESS OF BREATH Rhythm: Sinus Technical Quality: Fair FINDINGS Left Ventricle Mild left ventricular dilatation. Normal left ventricular wall thickness. Moderately reduced global left ventricular systolic function. Moderately abnormal left ventricular ejection fraction estimated at 35-40%. No obvious regional wall motion abnormalities. Right Ventricle Normal right ventricular size and function. Right Atrium Normal right atrial size. Left Atrium Mild to moderate left atrial dilatation. Mitral Valve Mild thickening/calcification of the mitral valve leaflets. Moderate to marked mitral regurgitation. Aortic Valve Structurally normal trileaflet aortic valve. No aortic stenosis. There is mild aortic regurgitation. Tricuspid Valve Structurally normal tricuspid valve. Mild tricuspid regurgitation. Right ventricular systolic pressure estimated to be elevated at 50- 55 mmHg. Moderate pulmonary hypertension. Pulmonic Valve Pulmonic valve not well visualized, grossly normal. Mild pulmonic regurgitation. Pericardium No pericardial or pleural effusion. Great Vessels Normal size aortic root. Dilated IVC. CONCLUSIONS Mild left ventricular dilatation. Moderately reduced global left ventricular systolic function. Moderately abnormal left ventricular ejection fraction estimated at 35-40%. No obvious regional wall motion abnormalities. Mild to moderate left atrial dilatation. Mild thickening/calcification of the mitral valve leaflets. Moderate to marked mitral regurgitation. Structurally normal trileaflet aortic valve. No aortic stenosis. There is mild aortic regurgitation. Right ventricular systolic pressure estimated to be elevated at 50- 55 mmHg. Moderate pulmonary hypertension. Dilated IVC. Heriberto Mckeon M.D. (Electronically Signed) Final Date: 24 August 2017 21:33 MEASUREMENTS (Male / Female) Normal Values 2D ECHO LV Diastolic Diameter PLAX 5.8 cm 4.2 - 5.9 / 3.9 - 5.3 cm LV Systolic Diameter PLAX 4.8 cm 2.1 - 4.0 cm LV Fractional Shortening PLAX 17.2 % 25 - 46 % LV Ejection Fraction 2D Teich 35.4 % IVS Diastolic Thickness 1.0 cm LVPW Diastolic Thickness 1.1 cm LV Relative Wall Thickness 0.4 RV Internal Dim ED PLAX 3.1 cm 1.9 - 3.8 cm LVOT Diameter 1.9 cm Aortic Root Diameter 2.8 cm LA Systolic Diameter LX 4.2 cm 3.0 - 4.0 / 2.7 - 3.8 cm LV Ejection Fraction MOD BP 38.5 % >= 55 % LV Diastolic Length 4C 8.0 cm 6.9 - 10.3 cm LV Diastolic Area 4C 35.2 cm LV Diastolic Volume MOD 4C 126.0 cm LV Ejection Fraction MOD 4C 37.3 % LV Stroke Volume MOD 4C 47.0 cm LV Systolic Length 4C 7.1 cm LV Systolic Area 4C 25.9 cm LV Systolic Volume MOD 4C 79.0 cm LV Ejection Fraction MOD 2C 32.9 % LV Diastolic Volume 4C AL 131.0 cm 85 - 139 / 69 - 109 cm LV Systolic Volume 4C AL 80.0 cm LV Ejection Fraction 4C AL 39.0 % LV Stroke Volume 4C AL 51.0 cm LV Ejection Fraction 2C AL 34.3 % LA Volume 71.0 cm 18 - 58 / 22 - 52 cm Ascending Aorta Diameter 2.7 cm DOPPLER AV Peak Velocity 131.0 cm/s AV Peak Gradient 6.9 mmHg AV Mean Velocity 83.7 cm/s AV Mean Gradient 3.0 mmHg AV Velocity Time Integral 22.0 cm LVOT Peak Velocity 59.5 cm/s LVOT Peak Gradient 1.4 mmHg LVOT Mean Velocity 39.2 cm/s LVOT Mean Gradient 1.0 mmHg LVOT Velocity Time Integral 9.7 cm LVOT Stroke Volume 27.4 cm AV Area Cont Eq vti 1.2 cm AV Area Cont Eq pk 1.3 cm MV Peak Velocity 168.0 cm/s MV Peak Gradient 11.3 mmHg MV Mean Velocity 84.6 cm/s MV Mean Gradient 4.0 mmHg Mitral E Point Velocity 156.0 cm/s MV PHT Velocity 171.0 cm/s MV Deceleration Tucker 736.0 cm/s MV Pressure Half Time 69.7 ms MV Area PHT 3.2 cm MV Deceleration Time 222.0 ms TR Peak Velocity 318.0 cm/s TR Peak Gradient 40.4 mmHg Right Atrial Pressure 10.0 mmHg Pulmonary Artery Systolic Pressu 50.4 mmHg Right Ventricular Systolic Press 50.4 mmHg PV Peak Velocity 69.8 cm/s PV Peak Gradient 1.9 mmHg PV Mean Velocity 41.7 cm/s PV Mean Gradient 1.0 mmHg PV Velocity Time Integral 8.7 cm LV E' Lateral Velocity 7.0 cm/s Mitral E to LV E' Lateral Ratio 22.2 LV E' Septal Velocity 7.5 cm/s Mitral E to LV E' Septal Ratio 20.8
[2017-08-24 22:14] VITALS: BP 118/70
[2017-08-25] VITALS: BP 120/70
[2017-08-25 01:53] LABS: PTT > 120 SEC (25-37)
--- NOTE | 2017-08-25 03:20 | Admission Certification ---
Admission Certification Certification Statement - As attending physician, I certify that at the time of - admission, based on clinical presentation, severity of - symptoms, need for further diagnostic testing and - therapeutic interventions, and risk of adverse outcomes - without in-hospital treatment, in my clinical assessment, - this patient requires an acute hospital stay for a minimum - of two nights or longer. I have also considered psychsocial - factors such as support system, advanced age, financial - issues, cognitive issues, and failed out-patient treatments, - past re-admission history, safety of patient, and lack of - compliance as applicable. Specific rationale supporting this admission is: Acute pulmonary embolism
[2017-08-25 05:51] LABS: ABSOLUTE BASOPHIL COUNT 0 /CUMM (0.0-0.2); ABSOLUTE EOSINOPHIL COUNT 0.1 /CUMM (0.0-0.7); ABSOLUTE LYMPH COUNT 0.9 /CUMM (1.2-3.4); ABSOLUTE MONOCYTE COUNT 0.5 /CUMM (0.10-0.60); BASOPHIL % 0.5 % (0.0-2.0); EOSINOPHIL % 1.6 % (0-5); GRANULOCYTE % 75.9 % (42.2-75.2); HEMATOCRIT 37.1 % (37-47); MEAN CORPUSCULAR HGB 24.7 PG (27.0-31.0); MEAN CORPUSCULAR HGB CONC 32.2 G/DL (33.0-37.0); MEAN CORPUSCULAR VOLUME 76.7 FL (81.0-99.0); MEAN PLATELET VOLUME 9.3 FL (7.4-10.4); PLATELET COUNT 199 /CUMM (130-400); RBC DISTRIBUTION WIDTH 16.8 % (11.5-14.5); RED BLOOD CELL CT 4.84 /CUMM (4.20-5.40); WHITE BLOOD CELL COUNT 6.6 /CUMM (4.8-10.8)
--- NOTE | 2017-08-25 07:40 | PN- Resident CRCU ---
Jazz Holly 08/25/17 0740: Objective Vital Signs & I&O Last 8 Hrs of Vitals and I&O: Intake & Output 08/25 0800 Intake Total 381 Output Total 540 Balance -159 Intake, IV 141 Intake, Oral 240 Number 0 Bowel Movements Output, Urine 540 Patient 164 lb Weight Exam General Appearance: alert
--- NOTE | 2017-08-25 07:41 | PN- Resident CRCU ---
Randell Gorman 08/25/17 0740: Subjective HPI/CRCU Issues: She was afebrile; and continues to have occassional dyspnea, when she moves in her bed. She continues to have tong catheter in place. No abdominal pain. She continues to be tacycardic, but no chest pain. Spoke to Dr. Tobin about her history of thrombophila; she has not been taking folic acid for while now. 24 Hour Events: Tm 97.9 HR 115-117 NSR RR 20-30 BP 114-134/65-80 O2 sat 96-97% RA I & O started around 8 PM: Input 886ml, Output 840ml. Objective Vital Signs & I&O Last 8 Hrs of Vitals and I&O: Intake & Output 08/25 0800 Intake Total 381 Output Total 540 Balance -159 Intake, IV 141 Intake, Oral 240 Number 0 Bowel Movements Output, Urine 540 Patient 164 lb Weight Exam General Appearance: alert, awake, mild distress Head: atraumatic, normal appearance Ears, Nose, Throat: normal pharynx, normal ENT inspection Neck: normal inspection, supple, full range of motion, no JVD Respiratory: normal breath sounds, chest non-tender, no respiratory distress Cardiovascular: regular rate/rhythm, edema Gastrointestinal: normal bowel sounds, soft, non-tender, no organomegaly Extremities: normal inspection, normal capillary refill, normal range of motion Cranial Nerves: normal hearing, normal speech, PERRL, absent sensation in jose LE upto the knee. Skin: warm/dry Skin Temp/Moisture Exam: Warm/Dry Sepsis Skin Exam (color): Normal for Ethnicity Sepsis Peripheral Pulse Location: Dorsalis Pedis Other Physical Findings: Skin RLE erythema extending from tips of toes upto the ankle, associated w/ swelling. Gangrenous area in the left third toe ulcer on the left Current Medications: Current Medications Sig/Pita Start time Last Medication Dose Route Stop Time Status Admin Acetaminophen 650 MG Q6P PRN 08/24 2030 AC PO Aspirin Buffered 81 MG DAILY 08/25 1000 AC 08/25 PO 0846 Atorvastatin Calcium 20 MG 1700 08/24 2100 AC 08/25 PO 1723 Carvedilol 3.125 MG BID 08/25 1115 AC 08/25 PO 1403 Carvedilol 3.125 MG DAILY 08/25 1102 DC PO Cholecalciferol 4,000 IU DAILY 08/25 1000 AC 08/25 PO 0847 Cyanocobalamin 500 MCG BID 08/24 2200 AC 08/25 PO 0846 Folic Acid 1 MG DAILY 08/26 1000 AC PO Furosemide 40 MG DAILY 08/25 1115 AC 08/25 PO 1403 Gabapentin 300 MG 4 TIMES/DAY 08/24 2200 AC 08/25 PO 1723 Heparin Sodium 0 .STK-MED ONE 08/24 1848 DC (Porcine) .ROUTE Heparin Sodium 25,000 UNIT Q24H 08/24 1800 AC 08/24 (Porcine) IV 1929 Sodium Chloride 500 ML Heparin Sodium 5,000 UNIT ONCE ONE 08/24 1800 DC 08/24 (Porcine) IV 08/24 1801 1929 Insulin Aspart 0 TIDAC 08/25 0800 CAN SC Insulin Aspart 0 TIDAC 08/25 0800 AC 08/25 SC 1723 Insulin Aspart 0 AT BEDTIME 08/24 2200 AC SC Lorazepam 0.5 MG ONE ONE 08/25 1615 DC 08/25 PO 08/25 1616 1611 Lorazepam 0.5 MG BID PRN 08/24 2200 AC 08/25 PO 08/31 2059 0844 Morphine Sulfate 2 MG Q4P PRN 08/24 2030 AC IV Nortriptyline HCl 50 MG AT BEDTIME 08/24 2200 AC 08/24 PO 2248 Oxybutynin Chloride 2.5 MG BID 08/24 2200 AC 08/25 PO 0847 Pyridoxine HCl 50 MG DAILY 08/25 1000 AC 08/25 PO 0848 Senna/Docusate Sodium 1 TAB BID PRN 08/25 1100 AC 08/25 PO 1403 Sertraline HCl 100 MG DAILY 08/25 1000 AC 08/25 PO 0848 Simethicone 40 MG Q8P PRN 08/25 1130 AC 08/25 PO 1400 Trimethoprim/ 1 TAB DAILY 08/25 1000 AC 08/25 Sulfamethoxazole PO 08/26 0959 0845 Impression/Plan Impression/Problem List Impression: Ms Callahan is a 62 year old woman w/ a PMHx of Asthma, 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 She was sent to the hospital by her PCP when she was found to have e/o pulmonary embolism on her CT. She was known to be in her usual state of health unitil 8 days ago, when she developed acute onset of dyspnea on exertion that worsened in the last few days, upto orthpnea. She is paraplegic, and has not been mobile at baseline. At the time of admission, temperature 96.9, pulse 118, RR 20, blood pressure 101 /55, sat 97% on RA. Pertinent lab findings: WBC 6.9, hemoglobin 12.3, hematocrit 39.1, platelet 219 sodium 144, potassium 4.5, chloride 104, bicarbonate 25, BUN 23, creatinine 0.6, LFT unremarkable, troponin negative, proBNP INR 1.37 CTA chest: 1. Scattered bilateral pulmonary emboli.2. Cardiomegaly. Reflux of contrast into the inferior vena cava and hepatic veins suggests presence of tricuspid regurgitation and elevated right-sidedcardiac pressures. No inward bowing of the interventricular septum. The RV/LV ratio is normal.3. Mild pulmonary emphysema. 4. Small right pleural effusion. 5. Within the upper abdomen, the finding of pneumobilia is likely secondary to prior papillotomy. DVT Doppler: Normal triplex scan without evidence of deep venous thrombosis involving the bilateral lower extremities. Echocardiogram : Mild left ventricular dilatation. Moderately reduced global left ventricular systolic function. Moderately abnormal left ventricular ejection fraction estimated at 35-40%. No obvious regional wall motion abnormalities. Mild to moderate left atrial dilatation. Mild thickening/ calcification of the mitral valve leaflets. Moderate to marked mitral regurgitation. Structurally normal trileaflet aortic valve. No aortic stenosis. There is mild aortic regurgitation. Right ventricular systolic pressure estimated to be elevated at 50- 55 mmHg. Moderate pulmonary hypertension. Dilated IVC. 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 She didnt have any DVT raising the probability of intra-abdominal venous thrombosis or spontaneous clots in the lung. She also has elevated right heart pressure, elevated pulmonary artery pressure likely from emphysema or left ventricular failure or combination of both; but doesnt seem to have right heart strain from the clots. Last thrombophilia work up was done around the time 02/2002, when she had spinal infarct, and hence interpretation would be difficult. In regards to her gangrene of right toes, she could have had arterial thrombus which needs to be evaluated using arterial ultrasound, with diabetic etiology likely possibility. Plan: 1. Respiratory: She is still in respiratory distress, but comfortable at rest. There doesnt seem to have a big clot burden, but should be monitored in the ICU for hemodynamic monitoring. 2. Infectious: Although the right lower extremity seems erythematous, it doesnt appear to be cellulitic at this time. White count is normal. No abx indicated at this time. 3. Circulatory- She appears to be having chf, likely due to non-ischemic reasons. Evaluated by the stationary engineer today, and was started on Lasix and a low dose beta tien. As per the stationary engineer, she should benefit from Entresto. After she is more stable, she should get persantine stress test while she is in the hospital. Discussed w/ the critical care attending to schedule the test, after she is more stable. 4. Hematology- She has high homocysteine around 20-30s, and has not been taking folic acid due to insurance issues. She should be evaluated by hematology, and followed closely after discharge. Continue heparin for now, since she is responding well to heparin w/ normal PTT despite having low normal Anti-thrombin 3. She should be transitioned to lovenox, if no further procedures are planned. As per the conversation between Dr. Phoenix and the vascular surgeon, he should get CT venogram to evaluate the abdominal veins for thrombi. Since she got CTA done in the last 24hrs, the plan is to wait to load her with more contrast. She should get ultrasound dopplers b.l LE of arteries. In regards to her low MCV, she might have had iron deficiency from homocystinemia too, or an indepent process. She is update w/ her preventive services including papsmear, coloscoly. 5. Metabolic- She has normal kidney function. HbA1c 7.3. Continue TISs. Advance diet as tolerated. 6. Neurology- Tong cath in place for urinary incontinence. Housekeepin. DVT PPx- heparin iv 2 Full code. Problem List: 1. Pulmonary embolus 2. urinary incontinence Pain Ratin Tomorrow's Labs & Rationales: cbc bep Plan DVT/Prophylaxis: pharmacological Lizett BORDEN,MarkoJustino Randlea 08/25/17 1113: Attending MD Review Statement Attending Sign Off Attending Cosign Statement: I have: examined this patient, reviewed aval EMR data, personally reviewd images, discussd w/resident/PA/ASH CONVEYOR OPERATOR, discussed mgmt plan w/emili, discussed mgmt plan w/pt, agreed w/resident/PA/ASH CONVEYOR OPERATOR, amended to note. Reason for Cont Hospitalizatn: CRCU management Other Findings: The patient has a small right foot necrotic ulcer with evidence of arterial insufficiency. I discussed this with vascular surgery. For now we will order a CT venogram of the abdomen and pelvis, as well as arterial dopplers of both legs. We will await further cardiology and hematology input as well. Continue heparin drip for therapeutic PTT. Will continue all supportive care for now.
[2017-08-25 08:00] VITALS: BP 120/70
--- NOTE | 2017-08-25 10:40 | Cons- Cardiology ---
General Information and HPI Consulting Request Date of Consult: 08/25/17 Requested By: Matthieu Silveira MD Reason for Consult: Pulmonary emboli and abnormal echocardiogram Source of Information: patient, old records Exam Limitations: no limitations History of Present Illness: Ne Callahan is a 62-year-old female with a history of spinal cord infarct limiting her activity and ambulation. She is hypertensive and diabetic. She denies previously known heart disease. She presents with about a one-week history of increasing shortness of breath and peripheral edema. Workup in the emergency department documented "scattered pulmonary emboli". There was also notes of cardiomegaly and evidence of high right-sided pressures on the CT scan. Subsequently echocardiogram documented reduced left ventricular systolic function with ejection fraction of 35-40% and moderate pulmonary hypertension with significant tricuspid regurgitation. Her EKGs interestingly do not show any significant abnormalities except for sinus tachycardia. She has no history of chest pain, palpitations, dizziness, syncope. Allergies/Medications Allergies: Coded Allergies: hydromorphone (Severe, SEVERE REACTION (UNKNOWN) 08/24/17) codeine (UNKNOWN 08/24/17) imipenem (UNKNOWN 08/24/17) latex (UNKNOWN 08/24/17) Home Med List: Aspirin (Ecotrin*) 81 MG TABLET.DR 1 TAB PO DAILY PREVENTION (Reported) Cholecalciferol (Vitamin D3) (Vitamin D-3) 2,000 UNIT TABLET 2 TAB PO DAILY SUPPLEMENT (Reported) Cyanocobalamin (Vitamin B-12) (Vitamin B-12) 500 MCG TABLET 1 TAB PO BID SUPPLEMENT (Reported) Empagliflozin (Jardiance) 25 MG TABLET 1 TAB PO DAILY DIABETES (Reported) Gabapentin (Neurontin) 300 MG CAPSULE 1 CAP PO 4 TIMES/DAY NEUROPATHY ( Reported) Glimepiride 4 MG TABLET 1 TAB PO AD DIABETES (Reported) TAKE 2 MG IN AM AND 4 MG IN PM Lorazepam 0.5 MG TABLET 1 TAB PO BIDP PRN ANXIETY (Reported) Losartan Potassium 25 MG TABLET 1 TAB PO AT BEDTIME BLOOD PRESSURE (Reported) Lovastatin 40 MG TABLET 2 TAB PO DAILY CHOLESTEROL (Reported) with food Nortriptyline HCl (Pamelor) 50 MG CAPSULE 1 CAP PO QHS NEUROPATHY (Reported) Pyridoxine HCl (Vitamin B-6) 50 MG TABLET 1 TAB PO 3XW SUPPLEMENT (Reported) Sertraline HCl 100 MG TABLET 1 TAB PO DAILY MOOD (Reported) Sitagliptin Phosphate (Januvia) 100 MG TABLET 1 TAB PO DAILY DIABETES ( Reported) Solifenacin Succinate (Vesicare) 5 MG TABLET 1 TAB PO DAILY BLADDER (Reported ) Sulfamethoxazole/Trimethoprim (Bactrim 400-80 MG Tablet) 400 MG-80 MG TABLET 1 TAB PO DAILY PREVENTION OF INFECTION (Reported) Current Medications: Current Medications Sig/Pita Start time Last Medication Dose Route Stop Time Status Admin Acetaminophen 650 MG Q6P PRN 08/24 2030 AC PO Aspirin Buffered 81 MG DAILY 08/25 1000 AC 08/25 PO 0846 Atorvastatin Calcium 20 MG 1700 08/24 2100 AC 08/24 PO 2249 Cholecalciferol 4,000 IU DAILY 08/25 1000 AC 08/25 PO 0847 Cyanocobalamin 500 MCG BID 08/24 220 AC 08/25 PO 0846 Gabapentin 300 MG 4 TIMES/DAY 08/24 2200 AC 08/25 PO 0846 Heparin Sodium 0 .STK-MED ONE 08/24 1848 DC (Porcine) .ROUTE Heparin Sodium 25,000 UNIT Q24H 08/24 1800 AC 08/24 (Porcine) IV 1929 Sodium Chloride 500 ML Heparin Sodium 5,000 UNIT ONCE ONE 08/24 1800 DC 08/24 (Porcine) IV 08/24 1801 1929 Insulin Aspart 0 TIDAC 08/25 0800 CAN SC Insulin Aspart 0 TIDAC 08/25 0800 AC 08/25 SC 0804 Insulin Aspart 0 AT BEDTIME 08/24 2200 AC SC Lorazepam 0.5 MG BID PRN 08/24 2200 AC 08/25 PO 08/31 205 0844 Morphine Sulfate 2 MG Q4P PRN 08/24 2030 AC IV Nortriptyline HCl 50 MG AT BEDTIME 08/24 2200 AC 08/24 PO 2248 Oxybutynin Chloride 2.5 MG BID 08/24 2200 AC 08/25 PO 0847 Pyridoxine HCl 50 MG DAILY 08/25 1000 AC 08/25 PO 0848 Sertraline HCl 100 MG DAILY 08/25 1000 AC 08/25 PO 0848 Trimethoprim/ 1 TAB DAILY 08/25 1000 AC 08/25 Sulfamethoxazole PO 08/26 0959 0845 Review of Systems Review of Systems: She is complaining of abdominal discomfort. Past History Travel History Traveled to [place] past 21 day No Medical History Blood Transfusion Hx: No Neurological: NONE, SPINAL BLOOD CLOT EENT: NONE Cardiovascular: hypertension, hyperlipidemia Respiratory: asthma Gastrointestinal: GERD Hepatic: NONE Renal: SELF CATH Musculoskeletal: NONE Psychiatric: NONE Endocrine: diabetes Blood Disorders: SPINAL CLOT Cancer(s): NONE Surgical History Surgical History: cholecystectomy Psychosocial History Where Do You Live? Home Services at Home: None Smoking Status: Former Smoker ETOH Use: denies use Illicit Drug Use: denies illicit drug use Exam & Diagnostic Data Vital Signs and I&O Vital Signs Date Time Temp Pulse Resp B/P B/P Pulse O2 O2 Flow FiO2 Mean Ox Delivery Rate 08/25 799 98.1 116 22 120/70 95 Room Air 08/25 0400 96 08/25 0000 96 Room Air 08/25 0000 97.9 116 22 120/70 98 Room Air 08/24 2214 96 Room Air 08/24 2214 97.9 116 36 118/70 96 Room Air 08/24 2113 116 18 118/74 97 Room Air 08/24 2021 97.7 59 16 131/60 93 Room Air 08/24 1801 98 Room Air 08/24 1725 96.9 118 20 101/55 97 Room Air Room Air Intake & Output 08/25 1600 08/25 0800 08/25 0000 08/24 1600 08/24 0800 08/24 0000 Intake Total 381 535.2 Output Total 540 700 Balance -159 -164.8 Intake, IV 141 25.2 Intake, Oral 240 510 Number 0 0 Bowel Movements Output, Urine 540 700 Patient 164 lb 150 lb Weight Weight Bed scale Measurement Method Physical Exam: Middle-aged mildly overweight female in no acute distress HEENT exam normal Neck veins not distended Carotids normal Chest clear Heart tachycardic, regular, apical holosystolic murmur Extremities trace edema Labs/Philip Results: Laboratory Tests 08/25 08/25 0940 0532 Chemistry Sodium (137 - 145 mmol/L) 139 Potassium (3.5 - 5.1 mmol/L) 4.0 Chloride (98 - 107 mmol/L) 107 Carbon Dioxide (22 - 30 mmol/L) 20 L Anion Gap (5 - 16) 11 BUN (7 - 17 mg/dL) 21 H Creatinine (0.5 - 1.0 mg/dL) 0.5 Estimated GFR (>60 ml/min) > 60 Glucose (65 - 99 mg/dL) 140 H Hemoglobin A1c (4.2 - 5.8 %) 7.3 H Calcium (8.4 - 10.2 mg/dL) 8.5 Phosphorus (2.5 - 4.5 mg/dL) 3.7 Magnesium (1.6 - 2.3 mg/dL) 2.1 Total Bilirubin (0.2 - 1.3 mg/dL) 0.5 AST (14 - 36 U/L) 36 ALT (9 - 52 U/L) 52 Troponin I (< 0.11 ng/ml) Pending 0.01 Albumin (3.5 - 5.0 g/dL) 3.3 L Coagulation APTT Pending Hematology CBC w Diff NO MAN DIFF REQ WBC (4.8 - 10.8 /CUMM) 6.6 RBC (4.20 - 5.40 /CUMM) 4.84 Hgb (12.0 - 16.0 G/DL) 11.9 L Hct (37 - 47 %) 37.1 MCV (81.0 - 99.0 FL) 76.7 L MCH (27.0 - 31.0 PG) 24.7 L MCHC (33.0 - 37.0 G/DL) 32.2 L RDW (11.5 - 14.5 %) 16.8 H Plt Count (130 - 400 /CUMM) 199 MPV (7.4 - 10.4 FL) 9.3 Gran % (42.2 - 75.2 %) 75.9 H Lymphocytes % (20.5 - 51.1 %) 14.1 L Monocytes % (1.7 - 9.3 %) 7.9 Eosinophils % (0 - 5 %) 1.6 Basophils % (0.0 - 2.0 %) 0.5 Absolute Granulocytes (1.4 - 6.5 /CUMM) 5.0 Absolute Lymphocytes (1.2 - 3.4 /CUMM) 0.9 L Absolute Monocytes (0.10 - 0.60 /CUMM) 0.5 Absolute Eosinophils (0.0 - 0.7 /CUMM) 0.1 Absolute Basophils (0.0 - 0.2 /CUMM) 0 08/25 08/25 08/24 0100 0057 2335 Chemistry Troponin I (< 0.11 ng/ml) 0.02 Coagulation APTT (25 - 37 SEC) > 120 *H Urines Urinalysis MOD H Urine Color (YEL,AMB,STR) YEL Urine Clarity (CLEAR) CLDY H Urine pH (5.0 - 8.0) 6.0 Ur Specific [place] (1.001 - 1.035) 1.025 Urine Protein (NEG,<30 MG/DL) TRACE H Urine Ketones (NEG) TRACE H Urine Nitrite (NEG) NEG Urine Bilirubin (NEG) NEG Urine Urobilinogen (0.1 - 1.0 EU/dl) 1.0 Ur Leukocyte Esterase (NEG) NEG Ur Microscopic SEDIMENT EXAMINED Urine RBC (0 - 5 /HPF) >75 H Urine WBC (0 - 2 /HPF) 5-10 H Ur Epithelial Cells (NONE,FEW) MOD H Urine Bacteria (NEG/NONE) FEW H Urine Mucus (FEW,NONE) FEW Urine Hemoglobin (NEG) LARGE H Urine Glucose (N MG/DL) >=1000 H 08/24 1727 Chemistry Sodium (137 - 145 mmol/L) 144 Potassium (3.5 - 5.1 mmol/L) 4.5 Chloride (98 - 107 mmol/L) 104 Carbon Dioxide (22 - 30 mmol/L) 25 Anion Gap (5 - 16) 15 BUN (7 - 17 mg/dL) 23 H Creatinine (0.5 - 1.0 mg/dL) 0.6 Estimated GFR (>60 ml/min) > 60 BUN/Creatinine Ratio (7 - 25 %) 38.3 H Glucose (65 - 99 mg/dL) 112 H Calcium (8.4 - 10.2 mg/dL) 9.4 Total Bilirubin (0.2 - 1.3 mg/dL) 0.6 AST (14 - 36 U/L) 41 H ALT (9 - 52 U/L) 48 Alkaline Phosphatase (<127 U/L) 98 Troponin I (< 0.11 ng/ml) < 0.01 [id number]-I-[id number] Pept (<125 pg/mL) 1530 H Total Protein (6.3 - 8.2 g/dL) 6.9 Albumin (3.5 - 5.0 g/dL) 4.1 Globulin (1.9 - 4.2 gm/dL) 2.8 Albumin/Globulin Ratio (1.1 - 2.2 %) 1.5 Coagulation PT (9.4 - 12.5 SEC) 14.3 H INR (0.90 - 1.19) 1.37 H APTT (25 - 37 SEC) 27 Hematology CBC w Diff NO MAN DIFF REQ WBC (4.8 - 10.8 /CUMM) 6.9 RBC (4.20 - 5.40 /CUMM) 5.10 Hgb (12.0 - 16.0 G/DL) 12.3 Hct (37 - 47 %) 39.1 MCV (81.0 - 99.0 FL) 76.6 L MCH (27.0 - 31.0 PG) 24.1 L MCHC (33.0 - 37.0 G/DL) 31.5 L RDW (11.5 - 14.5 %) 17.0 H Plt Count (130 - 400 /CUMM) 219 MPV (7.4 - 10.4 FL) 8.9 Gran % (42.2 - 75.2 %) 78.7 H Lymphocytes % (20.5 - 51.1 %) 14.9 L Monocytes % (1.7 - 9.3 %) 5.2 Eosinophils % (0 - 5 %) 0.8 Basophils % (0.0 - 2.0 %) 0.4 Absolute Granulocytes (1.4 - 6.5 /CUMM) 5.4 Absolute Lymphocytes (1.2 - 3.4 /CUMM) 1.0 L Absolute Monocytes (0.10 - 0.60 /CUMM) 0.4 Absolute Eosinophils (0.0 - 0.7 /CUMM) 0.1 Absolute Basophils (0.0 - 0.2 /CUMM) 0 Diagnostic Data EKG Results EKGs have consistently shown sinus tachycardia, probable left atrial enlargement , no significant ST-T wave abnormalities. CXR Results Not done Other Results CONCLUSIONS Mild left ventricular dilatation. Moderately reduced global left ventricular systolic function. Moderately abnormal left ventricular ejection fraction estimated at 35-40%. No obvious regional wall motion abnormalities. Mild to moderate left atrial dilatation. Mild thickening/calcification of the mitral valve leaflets. Moderate to marked mitral regurgitation. Structurally normal trileaflet aortic valve. No aortic stenosis. There is mild aortic regurgitation. Right ventricular systolic pressure estimated to be elevated at 50- 55 mmHg. Moderate pulmonary hypertension. Dilated IVC. Heriberto Mckeon M.D. (Electronically Signed) Final Date: 24 August 2017 21:33 IMPRESSION: 1. Scattered bilateral pulmonary emboli. 2. Cardiomegaly. Reflux of contrast into the inferior vena cava and hepatic veins suggests presence of tricuspid regurgitation and elevated right-sided cardiac pressures. No inward bowing of the interventricular septum. The RV/LV ratio is normal. 3. Mild pulmonary emphysema. 4. Small right pleural effusion. 5. Within the upper abdomen, the finding of pneumobilia is likely secondary to prior papillotomy. The ordering provider was paged at 4:36 pm. Ultimately, the critical test result was discussed with Jailene Richter at 5:04 PM on 08/24/2017 and it was ascertained that the content and the importance of the findings was understood at the time of the direct communication. DICTATED BY: Tunde Abad MD DATE/TIME DICTATED:08/24/171615 FOOD TASTER:ERWIN DATE/TIME TRANSCRIBED:08/24/171615 CONFIDENTIAL, DO NOT COPY WITHOUT APPROPRIATE AUTHORIZATION. <Electronically signed in Other Vendor System> SIGNED BY: Tunde Abad MD 08/24/17 1714 Assessment/Plan Assessment/Plan This patient is a 62-year-old female with previous spinal cord clot, etiology uncertain. She presents with increasing shortness of breath and peripheral edema. She is found to have "scattered pulmonary emboli", but no major central pulmonary emboli. She is also found to have a cardiomyopathy type picture on echocardiogram with reduced ejection fraction, significant tricuspid regurgitation and pulmonary hypertension. She has no history of coronary artery disease and no symptoms of coronary artery disease and her EKG is unremarkable except for tachycardia. The etiology of her cardiomyopathy is uncertain. I don't think it's related to the pulmonary emboli. I think the pulmonary emboli are probably secondary to reduced ejection fraction and cardiac output. She may have a clotting disorder in addition. I recommend continued anticoagulation as you are doing. I recommend starting her on a diuretic. This could be oral Lasix 40 mg daily. I recommend starting her on Coreg at a starting dose of 3.125 mg twice daily to help with the congestive heart failure and tachycardia. I would consider also starting her on Entresto depending on her response to the other medications. I think she probably should have a stress test prior to discharge which we can do as a Persantine nuclear stress test. Subsequently a cardiac MRI will probably be useful, which can be done as an outpatient. I think the patient is stable enough to be moved to telemetry at this time. Consult Acknowledgment - Thank you for your consult request.
[2017-08-25 11:07] LABS: PTT 102 SEC (25-37)
--- NOTE | 2017-08-25 11:19 | ULTRASOUND REPORT ---
EXAMINATION: US DUPLEX LOWER EXTREMITY ARTERY/GRAFT LIMITED, RIGHT CLINICAL INFORMATION: Gangrenous right foot, absent dorsalis pedis pulse.. COMPARISON: Bilateral lower extremity venous Doppler study. TECHNIQUE: Sonographic evaluation of the right lower extremity arterial structures. FINDINGS: Common femoral artery: Flow velocity is 94 cm/s; normal triphasic arterial flow. Right profunda: Flow velocity is 37 cm/s; normal triphasic arterial flow. Femoral artery proximal: Flow velocity is 99 cm/s; normal triphasic arterial flow. Femoral artery mid: Flow velocity is 112 cm/s; normal triphasic arterial flow. Femoral artery distal: Flow velocity is 99 cm/s; normal triphasic arterial flow. Popliteal artery: Flow velocity is 99 cm/s; normal triphasic flow. Right TERRAZZO FINISHER: Flow velocity is 50 cm/s, there is spectral broadening, monophasic flow. Right peroneal artery: Nonvisualized. Right anterior tibial artery: Flow velocity is 93 cm/s, triphasic flow with mild spectral broadening. Right dorsalis pedis: Flow velocity is 72 cm/s, there is spectral broadening, near monophasic flow. IMPRESSION: 1. Decreased flow velocity in the posterior tibialis and dorsalis pedis arteries, with near monophasic flow. The findings are concerning for near occlusion. 2. The peroneal artery is not visualized.
--- NOTE | 2017-08-25 16:18 | ULTRASOUND REPORT ---
EXAMINATION: US DUPLEX LOWER EXTREMITY ARTERY/GRAFT LIMITED, LEFT CLINICAL INFORMATION: Patient with PE. Gangrenous changes of the right foot. Patient is a vasculopath. COMPARISON: None TECHNIQUE: Real-time ultrasound and Doppler techniques (integrating B-mode 2-D vascular images, Doppler spectral analysis and color flow Doppler imaging) were utilized to interrogate the lower extremities. FINDINGS: Left lower extremity: Common femoral artery: 86 cm/sec; biphasic waveform Superficial femoral artery proximal: 77 cm/sec; triphasic waveform Superficial femoral artery mid portion: 56 cm/sec; biphasic waveform Superficial femoral artery distal: 64 cm/sec; biphasic waveform Profunda artery: 58 cm/sec; biphasic waveform Popliteal artery: 43 cm/sec; biphasic waveform Posterior tibial artery: 45 cm/sec; biphasic waveform Anterior tibial artery: Not seen Dorsalis pedis artery: 62 cm/sec; biphasic waveform IMPRESSION: Nonvisualization of the anterior tibial artery. Triphasic or biphasic flow seen throughout the remaining arteries of the left lower extremity. Greater sensitivity and specificity can be obtained with pre-and post exercise PVRs with HEATHER calculations. Also consider dedicated CTA for further anatomical detail.
--- NOTE | 2017-08-25 17:02 | CT SCAN REPORT ---
EXAMINATION: CT ANGIOGRAM ABDOMEN AND PELVIS CLINICAL INFORMATION: Venous embolus. Bilateral pulmonary emboli. COMPARISON: CT angiogram chest from 08/24/2017 TECHNIQUE: Multiple axial images were obtained through the abdomen and pelvis following the administration of 95 mL of Optiray 320 intravenous contrast. Separate scans were performed in the arterial and venous phase. Coronal and sagittal reformatted images were obtained and reviewed. DLP: 1118 mGy-cm FINDINGS: Vascular: 1. The descending thoracic aorta is normal in course and caliber without dissection. 2. Normal origins of the celiac axis, superior mesenteric artery, and inferior mesenteric artery. Single left renal artery and 2 right renal arteries which are widely patent. 3. The abdominal aorta is normal in course and caliber without dissection. Mild scattered atherosclerotic calcifications. 4. The iliac vasculature and visualized femoral arterial vasculature is normal in caliber with no stenosis. Scattered atherosclerotic calcifications. 5. In the venous phase, the visualized profunda and superficial femoral veins are opacified. The common femoral veins are opacified bilaterally. 6. The bilateral iliac veins are well opacified. 7. The inferior vena cava is well opacified. The bilateral renal veins are well opacified. 8. The portal vein is patent.. Nonvascular: Bibasilar subsegmental atelectasis. Tiny pleural effusions. The heart is prominent. Small pericardial effusion. The liver is normal in size and shape. Normal attenuation of the liver. There is pneumobilia. The gallbladder is absent. The common bile duct is prominent, measuring 1.3 cm. Internal gas extends in the common bile duct as well. The pancreas is unremarkable. The spleen and adrenal glands are unremarkable. The kidneys are normal in size and position. There are symmetric nephrograms. Left upper pole renal cyst. No hydronephrosis or nephrolithiasis. The ureters are decompressed. The bladder is decompressed with a Tom catheter in place. The stomach is unremarkable. The small bowel is normal in caliber without obstruction. There is fecalization of the distal ileum suggesting slow transit. There is colonic diverticulosis without evidence of diverticulitis. Moderate colonic stool burden. No free air. Small volume of pelvic free fluid. There is no lymphadenopathy. Lobulated uterus with coarse calcifications noted suggestive of fibroids. No adnexal mass. No abdominal wall hernia. Mild anasarca. No acute or suspicious osseous abnormality. Multilevel degenerative changes throughout the spine. Degenerative changes of both hips. IMPRESSION: 1. No evidence of venous filling defect to suggest a thrombus. 2. No acute arterial vascular abnormality. Mild nonocclusive atherosclerotic disease. 3. Cholecystectomy. Pneumobilia with nonspecific dilatation of the common bile duct. 4. Colonic diverticulosis without diverticulitis. Moderate colonic stool burden. 5. Cardiomegaly. Small pericardial effusion. Tiny pleural effusions. 6. Fibroid uterus. Small volume of pelvic free fluid.
[2017-08-25 17:06] VITALS: BP 108/62
--- NOTE | 2017-08-25 18:08 | Cons- Vascular Surgery ---
General Information and HPI Consulting Request Date of Consult: 08/25/17 Requested By: Matthieu Silveira MD History of Present Illness: She is a 62-year-old lady who was presented to the hospital with shortness of breath. 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 Venous ultrasound of the lower legs naturally any evidence of DVT. CT venogram also did not show any evidence of pelvic vein thrombosis. Cardiac workup has shown tricuspid regurg, pulmonary hypertension and low EF. The etiology of cardiomyopathy is unknown at this time. The patient also has a history of hypercoagulable state with homocystinemia. She has been started on heparin drip. Vascular surgery was consulted regarding possible need for IVC filter as well as new onset of right toe discolorations. Allergies/Medications Allergies: Coded Allergies: hydromorphone (Severe, SEVERE REACTION (UNKNOWN) 08/24/17) codeine (UNKNOWN 08/24/17) imipenem (UNKNOWN 08/24/17) latex (UNKNOWN 08/24/17) Home Med List: Aspirin (Ecotrin*) 81 MG TABLET.DR 1 TAB PO DAILY PREVENTION (Reported) Cholecalciferol (Vitamin D3) (Vitamin D-3) 2,000 UNIT TABLET 2 TAB PO DAILY SUPPLEMENT (Reported) Cyanocobalamin (Vitamin B-12) (Vitamin B-12) 500 MCG TABLET 1 TAB PO BID SUPPLEMENT (Reported) Empagliflozin (Jardiance) 25 MG TABLET 1 TAB PO DAILY DIABETES (Reported) Gabapentin (Neurontin) 300 MG CAPSULE 1 CAP PO 4 TIMES/DAY NEUROPATHY ( Reported) Glimepiride 4 MG TABLET 1 TAB PO AD DIABETES (Reported) TAKE 2 MG IN AM AND 4 MG IN PM Lorazepam 0.5 MG TABLET 1 TAB PO BIDP PRN ANXIETY (Reported) Losartan Potassium 25 MG TABLET 1 TAB PO AT BEDTIME BLOOD PRESSURE (Reported) Lovastatin 40 MG TABLET 2 TAB PO DAILY CHOLESTEROL (Reported) with food Nortriptyline HCl (Pamelor) 50 MG CAPSULE 1 CAP PO QHS NEUROPATHY (Reported) Pyridoxine HCl (Vitamin B-6) 50 MG TABLET 1 TAB PO 3XW SUPPLEMENT (Reported) Sertraline HCl 100 MG TABLET 1 TAB PO DAILY MOOD (Reported) Sitagliptin Phosphate (Januvia) 100 MG TABLET 1 TAB PO DAILY DIABETES ( Reported) Solifenacin Succinate (Vesicare) 5 MG TABLET 1 TAB PO DAILY BLADDER (Reported ) Sulfamethoxazole/Trimethoprim (Bactrim 400-80 MG Tablet) 400 MG-80 MG TABLET 1 TAB PO DAILY PREVENTION OF INFECTION (Reported) Past History Medical History Blood Transfusion Hx: No Neurological: NONE, SPINAL BLOOD CLOT EENT: NONE Cardiovascular: hypertension, hyperlipidemia Respiratory: asthma Gastrointestinal: GERD Hepatic: NONE Renal: SELF CATH Musculoskeletal: NONE Psychiatric: NONE Endocrine: diabetes Blood Disorders: SPINAL CLOT Cancer(s): NONE Surgical History Pertinent Surgical History: cholecystectomy Psychosocial History Where Do You Live? Home Services at Home: None Smoking Status: Former Smoker ETOH Use: denies use Illicit Drug Use: denies illicit drug use Review of Systems Review of Systems: Patient denies headache, dizziness, cough, palpitation, diarrhea or constipation Exam & Diagnostic Data Vital Signs and I&O Vital Signs Date Time Temp Pulse Resp B/P B/P Pulse O2 O2 Flow FiO2 Mean Ox Delivery Rate 08/25 1706 97.5 112 22 108/62 89 Room Air 08/25 1403 120 118/70 08/25 1050 Room Air 08/25 0800 98.1 116 22 120/70 95 Room Air 08/25 0800 95 Room Air 08/25 0400 96 08/25 0000 96 Room Air 08/25 0000 97.9 116 22 120/70 98 Room Air 08/24 2214 96 Room Air 08/24 2214 97.9 116 36 118/70 96 Room Air 08/24 2113 116 18 118/74 97 Room Air 08/242 97.7 59 16 131/60 93 Room Air Intake & Output 08/25 1600 / 0800 08/25 0000 08/24 1600 08/24 0800 08/24 0000 Intake Total 735 381 535.2 Output Total 475 540 700 Balance 260 -159 -164.8 Intake, IV 135 141 25.2 Intake, Oral 600 240 510 Number 0 0 Bowel Movements Output, Urine 475 540 700 Patient 164 lb 150 lb Weight Weight Bed scale Measurement Method Physical Exam: Patient is alert and oriented 3. Lungs: Clear Cardiovascular: Regular rate and rhythm Abdomen: Soft, nontender nondistended Extremities: Right first through fourth toes have dark discoloration especially on the plantar surface. There is no evidence of infection. There are palpable femoral pulses. I'm unable to palpate pedal pulses which may be due to swelling. Bilateral feet are warm to touch Assessment/Plan Assessment/Plan 62-year-old woman with multiple medical issues and hypercoagulable state with homocystinemia presented with multiple scattered PE and has been treated with anticoagulation. Cardiology consultation has been obtained and the thought is that her scattered PEs may be due to cardiomyopathy and low ejection fraction. Workup of bilateral lower extremity venous and CT venogram of the pelvis was negative for any thrombosis. Given the patient's right toe discoloration, arterial ultrasound of bilateral lower extremity was also obtained. There was question about possibility of right tibial disease. Recommendations Continue anticoagulation Hematology oncology consultation HEATHER PVR of bilateral lower extremity We'll follow with you and advise further after these studies. Consult Acknowledgment - Thank you for your consult request. Attending MD Review Statement Attending Statement Attending MD Statement: examined this patient, discuss w/resident/PA/PITCHING COACH
[2017-08-25 19:41] LABS: PTT 55 SEC (25-37)
[2017-08-25 21:44] VITALS: BP 118/78
[2017-08-26 02:53] LABS: PTT 119 SEC (25-37)
[2017-08-26 05:56] LABS: ABSOLUTE BASOPHIL COUNT 0 /CUMM (0.0-0.2); ABSOLUTE EOSINOPHIL COUNT 0.2 /CUMM (0.0-0.7); ABSOLUTE GRANULOCYTE CT 6.6 /CUMM (1.4-6.5); ABSOLUTE LYMPH COUNT 0.6 /CUMM (1.2-3.4); ABSOLUTE MONOCYTE COUNT 0.5 /CUMM (0.10-0.60); BASOPHIL % 0.1 % (0.0-2.0); EOSINOPHIL % 2.6 % (0-5); HEMATOCRIT 36.5 % (37-47); MEAN CORPUSCULAR HGB 24.4 PG (27.0-31.0); MEAN CORPUSCULAR VOLUME 76.2 FL (81.0-99.0); MEAN PLATELET VOLUME 9.5 FL (7.4-10.4); PLATELET COUNT 212 /CUMM (130-400); RBC DISTRIBUTION WIDTH 16.8 % (11.5-14.5); RED BLOOD CELL CT 4.79 /CUMM (4.20-5.40)
[2017-08-26 06:02] VITALS: BP 110/70
--- NOTE | 2017-08-26 07:36 | PN- Housestaff ---
Martha BORDEN,Ralph 08/26/17 0736: Subjective Follow-up For: Bilateral PE PVD Subjective: Patient was seen and examined today. Patient states that she is doing well. Patient notes that she has a rash and itching on her neck, chest and scalp. Patient denies any chest pain, palpitations, shortness of breath, fever/chills, nausea/vomiting, constipation/diarrhea. Patient currently has a Tong in place. No acute events overnight. Review of Systems Constitutional: Reports: no symptoms. Cardiovascular: Reports: no symptoms. Respiratory: Reports: no symptoms. Gastrointestinal: Reports: no symptoms. Genitourinary: Reports: no symptoms. Musculoskeletal: Reports: no symptoms. Skin: Reports: rash. Neurological/Psychological: Reports: no symptoms. Objective Last 24 Hrs of Vital Signs/I&O Vital Signs Date Time Temp Pulse Resp B/P B/P Pulse O2 O2 Flow FiO2 Mean Ox Delivery Rate 08/26 1751 100 Nasal 2.0L Cannula 08/26 1507 98.7 107 20 100/70 97 08/26 0908 110 112/60 08/26 0602 98.2 102 20 110/70 93 08/25 2144 98.6 106 18 118/78 95 Room Air 08/25 2122 108 118/78 Intake & Output 08/26 1600 08/26 0800 08/26 0000 Intake Total 824 178 100 Output Total 931 850 2362 Balance 474 -72 -975 Intake, IV 144 78 Intake, Oral 680 100 100 Number 1 Bowel Movements Output, Urine 105 324 6331 Physical Exam General Appearance: Alert, Oriented X3, Cooperative, No Acute Distress Skin: rash over chest and neck Skin Temp/Moisture Exam: Warm/Dry HEENT: Atraumatic, PERRLA, EOMI, Mucous Membr. moist/pink Cardiovascular: Regular Rate, Normal S1, Normal S2, No Murmurs Lungs: Clear to Auscultation, Normal Air Movement Abdomen: Normal Bowel Sounds, Soft, No Tenderness Neurological: Normal Speech Extremities: right foot banadaged with kerlix Vascular: decreased pulses on the right lower extremity Current Medications: Current Medications Sig/Pita Start time Last Medication Dose Route Stop Time Status Admin Acetaminophen 650 MG Q6P PRN 08/24 2030 AC PO Apixaban 10 MG BID 08/26 1408 AC 08/26 PO 1613 Aspirin Buffered 81 MG DAILY 08/25 1000 AC 08/26 PO 0907 Atorvastatin Calcium 20 MG 1700 08/24 2100 AC 08/26 PO 1613 Carvedilol 3.125 MG BID 08/25 1115 AC 08/26 PO 0908 Cholecalciferol 4,000 IU DAILY 08/25 1000 AC 08/26 PO 0907 Cyanocobalamin 500 MCG BID 08/26 2200 AC PO Cyanocobalamin 500 MCG BID 08/24 2200 DC 08/26 PO 0907 Diphenhydramine HCl 25 MG ONCE ONE 08/26 1545 DC 08/26 IV 08/26 1546 1613 Diphenhydramine HCl 25 MG ONCE ONE 08/26 1315 DC 08/26 IV 08/26 1316 1323 Dipyridamole 45 MG ONE ONE 08/27 08 AC Dextrose/Water 31 ML IV 08/27 08 Folic Acid 1 MG DAILY 08/26 1000 AC 08/26 PO 0907 Furosemide 40 MG DAILY 08/25 1115 DC 08/25 PO 1403 Gabapentin 300 MG 4 TIMES/DAY 08/24 2200 AC 08/26 PO 1718 Heparin Sodium 5,500 UNIT ONCE ONE 08/26 1200 DC 08/26 (Porcine) IV 08/26 1201 1246 Heparin Sodium 5,000 UNIT .STK-MED ONE 08/25 2119 DC (Porcine) IV 08/25 2120 Heparin Sodium 3,000 UNIT ONCE ONE 08/25 2100 DC 08/25 (Porcine) IV 08/25 2101 2121 Heparin Sodium 25,000 UNIT Q24H 08/24 1800 DC 08/26 (Porcine) IV 0030 Sodium Chloride 500 ML Hydrocortisone 1 ZULMA TIDPRN PRN 08/26 1015 AC 08/26 TOP 1112 Insulin Aspart 0 TIDAC 08/25 0800 AC 08/26 SC 1718 Insulin Aspart 0 AT BEDTIME 08/24 2199 AC SC Lorazepam 0.5 MG BID PRN 08/24 2200 AC 08/25 PO 08/31 2058 0844 Morphine Sulfate 2 MG Q4P PRN 08/24 2030 AC IV Nortriptyline HCl 50 MG AT BEDTIME 08/24 2200 AC 08/25 PO 2123 Oxybutynin Chloride 2.5 MG BID 08/24 2200 AC 08/26 PO 0908 Pyridoxine HCl 50 MG DAILY 08/25 1000 AC 08/26 PO 0908 Senna/Docusate Sodium 1 TAB BID PRN 08/25 1100 AC 08/25 PO 1403 Sertraline HCl 100 MG DAILY 08/25 1000 AC 08/26 PO 0907 Simethicone 40 MG Q8P PRN 08/25 1130 AC 08/25 PO 1400 Trimethoprim/ 1 TAB DAILY 08/25 1000 DC 08/25 Sulfamethoxazole PO 08/26 0959 0845 Last 24 Hrs of Lab/Philip Results Last 24 Hrs of Labs/Mics: Laboratory Tests 08/26/17 1045: APTT 35 08/26/17 0530: Anion Gap 12, Estimated GFR > 60, BUN/Creatinine Ratio 35.0 H, CBC w Diff NO MAN DIFF REQ, RBC 4.79, MCV 76.2 L, MCH 24.4 L, MCHC 32.0 L, RDW 16.8 H, MPV 9.5, Gran % 83.0 H, Lymphocytes % 7.8 L, Monocytes % 6.5, Eosinophils % 2.6, Basophils % 0.1, Absolute Granulocytes 6.6 H, Absolute Lymphocytes 0.6 L, Absolute Monocytes 0.5, Absolute Eosinophils 0.2, Absolute Basophils 0 08/26/17 0215: APTT 119 *H Lines/Diet/Fluids Catheters/Tubes: tong Tong Still Needed? Yes Assessment/Plan Assessment: Patient is a 62 y/o female with a past medical history of asthma, paraplegia status post spinal infarct in 2001, homocystinemia, diabetes, peripheral neuropathy, urinary incontinence, hypertension, diabetes, pseudo-gout, and gallstone pancreatitis hospital post cholecystectomy in 2012. She presents with an 8 day history of shortness of breath that is worse on exertion with occasional nonproductive cough. A CT angiogram of her chest showed scattered bilateral pulmonary embolisms along with Cardiomegaly and some signs of elevated RV pressures. She'll be admitted and monitored closely in the ICU for a pulmonary embolism. Intravenous anticoagulation with IV heparin. Of note, she does after to have a past history of thromboembolic events with spinal cord infarct and possible homocystinemia so she will likely have to be anticoagulated on a long-term basis. Patient stabilized and transferred to telemetry for management of the following: Problem list 1. Bilateral pulmonary embolism with history of previous thromboembolic events and homocystinemia 2. Congestive heart failure with reduced ejection fraction of 30-35% and cardiomyopathy 3. Peripheral vascular disease Hypertension 4. Skin rash likely drug allergy 5. Diabetes mellitus with peripheral neuropathy 6. Paraplegia status post spinal cord infarct 7. History of asthma with emphysema on CT scan of chest 8. Depression 9. Ex-smokerquit 2 weeks ago Plan 1. Bilateral pulmonary embolism with history of previous thromboembolic events and homocystinemia * IV heparin discontinued and switched to eliquis 10mg BID for anticoagulation with pulmonary embolism protocol. Patient will require 7 days of eliquis 10mg BID followed by eliquis 5mg BID * Pulmonology, cardiology and hematology onboard. Appreciate recommendations * Hold losartan home medication on account of normal blood pressures at this time * Monitor CBC for anemia and pancytopenia while on heparin therapy * Patients Pro BNP was elevated at 1530 pg/ml which could be reflective of her pulmonary embolism or overt heart failure 2. Congestive heart failure with reduced ejection fraction of 30-35% and cardiomyopathy * Echo showing reduced ejection fraction and high right ventricular systolic pressure * Patient switched from lasix to ethacrynic acid due to possible drug allergy with lasix as it has a sulfa moiety which may be the culprit of patient's rash today * monitor strict I/O and daily weights * patient is NPO for persantine stress test tomorrow to determine if the cardiomyopathy is due to ischemia 3. Peripheral Vascular Disease. * Patient had a doppler arterial study showing right posterior tibialis and dorsalis pedis with near monophasic flow conserning for near occlusion * Patient currently on anticoagulation * Vascular surgery on board. Appreciate recommendations * Patient will require HEATHER PVR studies to be done outpatient and close follow up with vascular surgery 4. Skin Rash - likley drug allergy * Lasix and bactrim held - likely culprits * Patient give IV benadryl * Hydrocortisone cream 2.5% PRN 5. Hypertension * Hold losartan home medication on account of normal blood pressures at this time 6. Diabetes mellitus with peripheral neuropathy * Hold home medication of Januvia, glimepiride and Jardiance * Accu-Cheks 3 times a day before meals at bedtime * Start NovoLog sliding scale 3 times a day before meals at bedtime * Diabetic diet * Continue gabapentin and nortriptyline for neuropathic 7. Paraplegia status post spinal cord infarct * Offloading pressure points with heel pads as patient is paraplegic * Daily dressing for Right toe ulcers (Big toe and 3rd toe) 8. History of asthma with emphysema on CT scan of chest * [facility] evaluation for nebulizer therapy * Oxygen as needed to keep PO2 greater than 92% 9. Depression * Continue by mouth sertraline 10. Ex-smokerquit 2 weeks ago * Patient refused nicotine patch DVT prophylaxis: IV heparin drip. Switched to Eliquis today CODE STATUS: Patient is full code Diet: Diabetic diet Problem List: 1. Pulmonary embolus 2. urinary incontinence Pain Ratin Pain Location: n/a Pain Goal: Remain pain free Pain Plan: n/a Tomorrow's Labs & Rationales: bep cbc Sergio Yip MD 08/26/175: Attending MD Review Statement Attending Statement Attending MD Statement: examined this patient, discuss w/resident/PA/CHECKER/STOCKER, agreed w/resident/PA/CHECKER/STOCKER, reviewed EMR data (avail), discussed with nursing, discussed with case mgmt, amended to note Attending Assessment/Plan: The patient was seen and discussed with house staff. Appreciate hematology and pulmonary follow-up. The patient developed dermatitis (facial/trunk) most c/w drug reaction. This began several hours after Lasix administration. Other new meds include heparin/Coreg. Lasix is most likely culprit. She has been on care home suppressive therapy with Bactrim, however this may be a sulfa reaction. Will treat with Benadryl/Hydrocortisone Cream, hold Lasix/Bactrim. Will use Ethacrynic acid (Edecrin) acid as alternative loop diuretic (has no sulfur moiety). Dipyridamole stress test tomorrow as per Cardiology. PT worked with patient and able to do wheelchair transfer. She prefers to keep tong in while in hospital and do self cath when home. Will consider alternative suppressive therapy (Macrodantin).
--- NOTE | 2017-08-26 08:00 | PN- Pulmonary ---
Objective Current Medications: Current Medications Sig/Pita Start time Last Medication Dose Route Stop Time Status Admin Acetaminophen 650 MG Q6P PRN 08/24 2030 AC PO Aspirin Buffered 81 MG DAILY 08/25 1000 AC 08/25 PO 0846 Atorvastatin Calcium 20 MG 1700 08/24 2100 AC 08/25 PO 1723 Carvedilol 3.125 MG BID 08/25 1115 AC 08/25 PO 2122 Carvedilol 3.125 MG DAILY 08/25 1102 DC PO Cholecalciferol 4,000 IU DAILY 08/25 1000 AC 08/25 PO 0847 Cyanocobalamin 500 MCG BID 08/24 2200 AC 08/25 PO 2123 Folic Acid 1 MG DAILY 08/26 1000 AC PO Furosemide 40 MG DAILY 08/25 1115 AC 08/25 PO 1403 Gabapentin 300 MG 4 TIMES/DAY 08/24 2200 AC 08/25 PO 2122 Heparin Sodium 5,000 UNIT .STK-MED ONE 08/25 2118 DC (Porcine) IV 08/25 2120 Heparin Sodium 3,000 UNIT ONCE ONE 08/25 2100 DC 08/25 (Porcine) IV 08/25 210 2121 Heparin Sodium 25,000 UNIT Q24H 08/24 1800 AC 08/26 (Porcine) IV 0030 Sodium Chloride 500 ML Insulin Aspart 0 TIDAC 08/25 0800 AC 08/25 SC 1723 Insulin Aspart 0 AT BEDTIME 08/24 2200 AC SC Lorazepam 0.5 MG ONE ONE 08/25 1615 DC 08/25 PO 08/25 1616 1611 Lorazepam 0.5 MG BID PRN 08/24 2200 AC 08/25 PO 08/31 2058 0844 Morphine Sulfate 2 MG Q4P PRN 08/24 2030 AC IV Nortriptyline HCl 50 MG AT BEDTIME 08/24 2200 AC 08/25 PO 2123 Oxybutynin Chloride 2.5 MG BID 08/24 2200 AC 08/25 PO 2121 Pyridoxine HCl 50 MG DAILY 08/25 1000 AC 08/25 PO 0848 Senna/Docusate Sodium 1 TAB BID PRN 08/25 1100 AC 08/25 PO 1403 Sertraline HCl 100 MG DAILY 08/25 1000 AC 08/25 PO 0848 Simethicone 40 MG Q8P PRN 08/25 1130 AC 08/25 PO 1400 Trimethoprim/ 1 TAB DAILY 08/25 1000 AC 08/25 Sulfamethoxazole PO 08/26 0959 0845 Vital Signs & I&O Last 24 Hrs of Vitals and I&O: Vital Signs Date Time Temp Pulse Resp B/P B/P Pulse O2 O2 Flow FiO2 Mean Ox Delivery Rate 08/26 0602 98.2 102 20 110/70 93 08/25 2144 98.6 106 18 118/78 95 Room Air 08/25 2122 108 118/78 08/25 1800 105 24 97 Nasal 2.0L Cannula 08/25 1706 97.5 112 22 108/62 89 Room Air 08/25 1600 97 Nasal 2.0L Cannula 08/25 1403 120 118/70 08/25 1050 Room Air 08/25 0800 98.1 116 22 120/70 95 Room Air 08/25 0800 95 Room Air Intake & Output 08/26 0808/26 0000 08/25 1600 Intake Total 178 100 735 Output Total 250 1075 475 Balance -72 -975 260 Intake, IV 78 135 Intake, Oral 100 100 600 Output, Urine 250 1075 475 Exam General Appearance: alert, awake Head: atraumatic, normal appearance Neck: normal inspection, supple Respiratory: normal breath sounds, chest non-tender, no respiratory distress Cardiovascular: regular rate/rhythm, edema Gastrointestinal: normal bowel sounds, soft, non-tender Extremities: normal inspection, normal capillary refill, normal range of motion Skin: warm/dry Skin Temp/Moisture Exam: Warm/Dry Sepsis Skin Exam (color): Normal for Ethnicity Other Physical Findings: Skin RLE erythema extending from tips of toes upto the ankle, associated w/ swelling, gangrenous area in the left third toe ulcer on the left Results Last 24 Hrs of Lab Results: Laboratory Tests 08/26/17 0530: Anion Gap 12, Estimated GFR > 60, BUN/Creatinine Ratio 35.0 H, CBC w Diff NO MAN DIFF REQ, RBC 4.79, MCV 76.2 L, MCH 24.4 L, MCHC 32.0 L, RDW 16.8 H, MPV 9.5, Gran % 83.0 H, Lymphocytes % 7.8 L, Monocytes % 6.5, Eosinophils % 2.6, Basophils % 0.1, Absolute Granulocytes 6.6 H, Absolute Lymphocytes 0.6 L, Absolute Monocytes 0.5, Absolute Eosinophils 0.2, Absolute Basophils 0 08/26/17 0215: APTT 119 *H 08/25/17 1825: APTT 55 H 08/25/17 0940: Troponin I < 0.01, APTT 102 *H Impression/Plan Impression/Plan Impression/Plan: 1. Bilateral pulmonary emboli. 2. Hypercoagulable state. 3. Peripheral vascular disease. 4 . Paraplegia due to spinal artery infarct. Recommendations: * Continue anticoagulation. * Await hematology input. * Follow up cardiology and vascular surgery input. * Monitor oxygen saturations.
--- NOTE | 2017-08-26 08:18 | Cons- Hematology ---
General Information and HPI Consulting Request Date of Consult: 08/26/17 Requested By: Matthieu Silveira MD Reason for Consult: Bilateral pulmonary embolism Source of Information: patient, old records Exam Limitations: no limitations History of Present Illness: Ms. Callahan is a 62-year-old female with paraplegia status post spinal infarct in 2001, peripheral neuropathy, asthma, HTN, gallstone pancreatitis s/p cholecystectomy in 2012, diabetes, elevated homocystinine, and urinary incontinence who presented to the hospital with shortness of breath. Dyspnea has progressed over the last 1-2 weeks. She has noted worsenign lower extremity edema. She is wheelchair bound. She has no fever or chills. She does have a nonproductive cough. She denies any chest pain. She was seen by Dr. Tobin and was sent to ED for evalaution. In the ED, CTA of the chest demonstrated bilateral pulmonary embolism. She was admitted and started on heparin drip. Doppler US of the lower extremity was negative for DVT. She denies any new symptoms this morning. Breathing is improved. Allergies/Medications Allergies: Coded Allergies: hydromorphone (Severe, SEVERE REACTION (UNKNOWN) 08/24/17) codeine (UNKNOWN 08/24/17) imipenem (UNKNOWN 08/24/17) latex (UNKNOWN 08/24/17) Home Med List: Aspirin (Ecotrin*) 81 MG TABLET.DR 1 TAB PO DAILY PREVENTION (Reported) Cholecalciferol (Vitamin D3) (Vitamin D-3) 2,000 UNIT TABLET 2 TAB PO DAILY SUPPLEMENT (Reported) Cyanocobalamin (Vitamin B-12) (Vitamin B-12) 500 MCG TABLET 1 TAB PO BID SUPPLEMENT (Reported) Empagliflozin (Jardiance) 25 MG TABLET 1 TAB PO DAILY DIABETES (Reported) Gabapentin (Neurontin) 300 MG CAPSULE 1 CAP PO 4 TIMES/DAY NEUROPATHY ( Reported) Glimepiride 4 MG TABLET 1 TAB PO AD DIABETES (Reported) TAKE 2 MG IN AM AND 4 MG IN PM Lorazepam 0.5 MG TABLET 1 TAB PO BIDP PRN ANXIETY (Reported) Losartan Potassium 25 MG TABLET 1 TAB PO AT BEDTIME BLOOD PRESSURE (Reported) Lovastatin 40 MG TABLET 2 TAB PO DAILY CHOLESTEROL (Reported) with food Nortriptyline HCl (Pamelor) 50 MG CAPSULE 1 CAP PO QHS NEUROPATHY (Reported) Pyridoxine HCl (Vitamin B-6) 50 MG TABLET 1 TAB PO 3XW SUPPLEMENT (Reported) Sertraline HCl 100 MG TABLET 1 TAB PO DAILY MOOD (Reported) Sitagliptin Phosphate (Januvia) 100 MG TABLET 1 TAB PO DAILY DIABETES ( Reported) Solifenacin Succinate (Vesicare) 5 MG TABLET 1 TAB PO DAILY BLADDER (Reported ) Sulfamethoxazole/Trimethoprim (Bactrim 400-80 MG Tablet) 400 MG-80 MG TABLET 1 TAB PO DAILY PREVENTION OF INFECTION (Reported) Current Medications: Current Medications Sig/Pita Start time Last Medication Dose Route Stop Time Status Admin Acetaminophen 650 MG Q6P PRN 08/24 2030 AC PO Aspirin Buffered 81 MG DAILY 08/25 1000 AC 08/25 PO 0846 Atorvastatin Calcium 20 MG 1700 08/24 2100 AC 08/25 PO 1723 Carvedilol 3.125 MG BID 08/25 1115 AC 08/25 PO 212 Carvedilol 3.125 MG DAILY 08/25 1102 DC PO Cholecalciferol 4,000 IU DAILY 08/25 1000 AC 08/25 PO 0847 Cyanocobalamin 500 MCG BID 08/24 2200 AC 08/25 PO 2123 Folic Acid 1 MG DAILY 08/26 1000 AC PO Furosemide 40 MG DAILY 08/25 1115 AC 08/25 PO 1403 Gabapentin 300 MG 4 TIMES/DAY 08/24 220 AC 08/25 PO 212 Heparin Sodium 5,000 UNIT .STK-MED ONE 08/25 2118 DC (Porcine) IV 08/25 2119 Heparin Sodium 3,000 UNIT ONCE ONE 08/25 2100 DC 08/25 (Porcine) IV 08/25 2100 212 Heparin Sodium 25,000 UNIT Q24H 08/24 1800 AC 08/26 (Porcine) IV 0030 Sodium Chloride 500 ML Insulin Aspart 0 TIDAC 08/25 0800 AC 08/25 SC 1723 Insulin Aspart 0 AT BEDTIME 08/24 2199 AC SC Lorazepam 0.5 MG ONE ONE 08/25 1615 DC 08/25 PO 08/25 161 1611 Lorazepam 0.5 MG BID PRN 08/24 2199 AC 08/25 PO 08/31 2058 08 Morphine Sulfate 2 MG Q4P PRN 08/24 2030 AC IV Nortriptyline HCl 50 MG AT BEDTIME 08/24 220 AC 08/25 PO 212 Oxybutynin Chloride 2.5 MG BID 08/24 2200 AC 08/25 PO 2121 Pyridoxine HCl 50 MG DAILY 08/25 1000 AC 08/25 PO 0848 Senna/Docusate Sodium 1 TAB BID PRN 08/25 1100 AC 08/25 PO 1403 Sertraline HCl 100 MG DAILY 08/25 1000 AC 08/25 PO 0848 Simethicone 40 MG Q8P PRN 08/25 1130 AC 08/25 PO 1400 Trimethoprim/ 1 TAB DAILY 08/25 1000 AC 08/25 Sulfamethoxazole PO 08/26 0959 0845 Review of Systems Review of Systems Constitutional: Denies: chills, fever, weakness. Cardiovascular: Reports: edema. Denies: chest pain. Respiratory: Reports: short of breath. Denies: hemoptysis. GI: Denies: abdominal pain. Neurological/Psychological: Denies: confusion. Hematologic/Endocrine: Denies: bruising, bleeding. All Other Systems: Reviewed and Negative Past History Travel History Traveled to [place] past 21 day No Medical History Blood Transfusion Hx: No Neurological: NONE, SPINAL BLOOD CLOT EENT: NONE Cardiovascular: hypertension, hyperlipidemia Respiratory: asthma Gastrointestinal: GERD Hepatic: NONE Renal: SELF CATH Musculoskeletal: NONE Psychiatric: NONE Endocrine: diabetes Blood Disorders: SPINAL CLOT Cancer(s): NONE Surgical History Surgical History: cholecystectomy Psychosocial History Where Do You Live? Home Services at Home: None Smoking Status: Former Smoker ETOH Use: denies use Illicit Drug Use: denies illicit drug use Exam & Diagnostic Data Vital Signs and I&O Vital Signs Date Time Temp Pulse Resp B/P B/P Pulse O2 O2 Flow FiO2 Mean Ox Delivery Rate 08/26 601 98.2 102 20 110/70 93 08/25 2144 98.6 106 18 118/78 95 Room Air 08/25 2122 108 118/78 08/25 1800 105 24 97 Nasal 2.0L Cannula 08/25 1706 97.5 112 22 108/62 89 Room Air 08/25 1600 97 Nasal 2.0L Cannula 08/25 1403 120 118/70 08/25 1050 Room Air 08/25 08 98.1 116 22 120/70 95 Room Air 08/25 0800 95 Room Air Intake & Output 08/26 0800 08/26 0000 08/25 1600 Intake Total 178 100 735 Output Total 250 1075 475 Balance -72 -975 260 Intake, IV 78 135 Intake, Oral 100 100 600 Output, Urine 250 1075 475 Physical Exam General Appearance: well developed/nourished, no apparent distress, comfortable Head: atraumatic, normal appearance Eyes: Bilateral: PERRL, EOMI. Ears, Nose, Throat: normal pharynx Respiratory: normal breath sounds, chest non-tender, no respiratory distress Cardiovascular: regular rate/rhythm Gastrointestinal: normal bowel sounds, soft, non-tender Extremities: RLE with skin breakdown , muscle wasting in lower extremity, edema in lower extremity, LLE with purple discoloration Neurologic/Psych: awake, alert, oriented x 3 Skin: intact, RLE: warm to touch, LLE: cool to touch Last 48 Hours of Lab Results: Laboratory Tests 08/26 08/26 08/25 08/25 0530 0215 1825 0940 Chemistry Sodium (137 - 145 mmol/L) 137 Potassium (3.5 - 5.1 mmol/L) 4.0 Chloride (98 - 107 mmol/L) 102 Carbon Dioxide (22 - 30 mmol/L) 22 Anion Gap (5 - 16) 12 BUN (7 - 17 mg/dL) 21 H Creatinine (0.5 - 1.0 mg/dL) 0.6 Estimated GFR (>60 ml/min) > 60 BUN/Creatinine Ratio (7 - 25 %) 35.0 H Troponin I (< 0.11 ng/ml) < 0.01 Coagulation APTT (25 - 37 SEC) 119 *H 55 H 102 *H Hematology CBC w Diff NO MAN DIFF REQ WBC (4.8 - 10.8 /CUMM) 8.0 RBC (4.20 - 5.40 /CUMM) 4.79 Hgb (12.0 - 16.0 G/DL) 11.7 L Hct (37 - 47 %) 36.5 L MCV (81.0 - 99.0 FL) 76.2 L MCH (27.0 - 31.0 PG) 24.4 L MCHC (33.0 - 37.0 G/DL) 32.0 L RDW (11.5 - 14.5 %) 16.8 H Plt Count (130 - 400 /CUMM) 212 MPV (7.4 - 10.4 FL) 9.5 Gran % (42.2 - 75.2 %) 83.0 H Lymphocytes % (20.5 - 51.1 %) 7.8 L Monocytes % (1.7 - 9.3 %) 6.5 Eosinophils % (0 - 5 %) 2.6 Basophils % (0.0 - 2.0 %) 0.1 Absolute Granulocytes (1.4 - 6.5 /CUMM) 6.6 H Absolute Lymphocytes (1.2 - 3.4 /CUMM) 0.6 L Absolute Monocytes (0.10 - 0.60 /CUMM) 0.5 Absolute Eosinophils (0.0 - 0.7 /CUMM) 0.2 Absolute Basophils (0.0 - 0.2 /CUMM) 0 08/25 08/25 0532 0100 Chemistry Sodium (137 - 145 mmol/L) 139 Potassium (3.5 - 5.1 mmol/L) 4.0 Chloride (98 - 107 mmol/L) 107 Carbon Dioxide (22 - 30 mmol/L) 20 L Anion Gap (5 - 16) 11 BUN (7 - 17 mg/dL) 21 H Creatinine (0.5 - 1.0 mg/dL) 0.5 Estimated GFR (>60 ml/min) > 60 Glucose (65 - 99 mg/dL) 140 H Hemoglobin A1c (4.2 - 5.8 %) 7.3 H Calcium (8.4 - 10.2 mg/dL) 8.5 Phosphorus (2.5 - 4.5 mg/dL) 3.7 Magnesium (1.6 - 2.3 mg/dL) 2.1 Total Bilirubin (0.2 - 1.3 mg/dL) 0.5 AST (14 - 36 U/L) 36 ALT (9 - 52 U/L) 52 Troponin I (< 0.11 ng/ml) 0.01 Albumin (3.5 - 5.0 g/dL) 3.3 L Hematology CBC w Diff NO MAN DIFF REQ WBC (4.8 - 10.8 /CUMM) 6.6 RBC (4.20 - 5.40 /CUMM) 4.84 Hgb (12.0 - 16.0 G/DL) 11.9 L Hct (37 - 47 %) 37.1 MCV (81.0 - 99.0 FL) 76.7 L MCH (27.0 - 31.0 PG) 24.7 L MCHC (33.0 - 37.0 G/DL) 32.2 L RDW (11.5 - 14.5 %) 16.8 H Plt Count (130 - 400 /CUMM) 199 MPV (7.4 - 10.4 FL) 9.3 Gran % (42.2 - 75.2 %) 75.9 H Lymphocytes % (20.5 - 51.1 %) 14.1 L Monocytes % (1.7 - 9.3 %) 7.9 Eosinophils % (0 - 5 %) 1.6 Basophils % (0.0 - 2.0 %) 0.5 Absolute Granulocytes (1.4 - 6.5 /CUMM) 5.0 Absolute Lymphocytes (1.2 - 3.4 /CUMM) 0.9 L Absolute Monocytes (0.10 - 0.60 /CUMM) 0.5 Absolute Eosinophils (0.0 - 0.7 /CUMM) 0.1 Absolute Basophils (0.0 - 0.2 /CUMM) 0 Urines Urinalysis MOD H Urine Color (YEL,AMB,STR) YEL Urine Clarity (CLEAR) CLDY H Urine pH (5.0 - 8.0) 6.0 Ur Specific [place] (1.001 - 1.035) 1.025 Urine Protein (NEG,<30 MG/DL) TRACE H Urine Ketones (NEG) TRACE H Urine Nitrite (NEG) NEG Urine Bilirubin (NEG) NEG Urine Urobilinogen (0.1 - 1.0 EU/dl) 1.0 Ur Leukocyte Esterase (NEG) NEG Ur Microscopic SEDIMENT EXAMINED Urine RBC (0 - 5 /HPF) >75 H Urine WBC (0 - 2 /HPF) 5-10 H Ur Epithelial Cells (NONE,FEW) MOD H Urine Bacteria (NEG/NONE) FEW H Urine Mucus (FEW,NONE) FEW Urine Hemoglobin (NEG) LARGE H Urine Glucose (N MG/DL) >=1000 H 08/25 02/ 02/ 0057 2335 1727 Chemistry Sodium (137 - 145 mmol/L) 144 Potassium (3.5 - 5.1 mmol/L) 4.5 Chloride (98 - 107 mmol/L) 104 Carbon Dioxide (22 - 30 mmol/L) 25 Anion Gap (5 - 16) 15 BUN (7 - 17 mg/dL) 23 H Creatinine (0.5 - 1.0 mg/dL) 0.6 Estimated GFR (>60 ml/min) > 60 BUN/Creatinine Ratio (7 - 25 %) 38.3 H Glucose (65 - 99 mg/dL) 112 H Calcium (8.4 - 10.2 mg/dL) 9.4 Iron (37 - 170 ug/dL) 26 L TIBC (265 - 497 ug/dL) 468 Ferritin (11.1 - 264 ng/mL) 47.3 Total Bilirubin (0.2 - 1.3 mg/dL) 0.6 AST (14 - 36 U/L) 41 H ALT (9 - 52 U/L) 48 Alkaline Phosphatase (<127 U/L) 98 Troponin I (< 0.11 ng/ml) 0.02 < 0.01 [id number] Pept (<125 pg/mL) 1530 H Total Protein (6.3 - 8.2 g/dL) 6.9 Albumin (3.5 - 5.0 g/dL) 4.1 Globulin (1.9 - 4.2 gm/dL) 2.8 Albumin/Globulin Ratio (1.1 - 2.2 %) 1.5 Vitamin B12 (239 - 931 pg/mL) > 1000 H Folate (2.76 - 20.0 ng/mL) > 20.0 H Coagulation PT (9.4 - 12.5 SEC) 14.3 H INR (0.90 - 1.19) 1.37 H APTT (25 - 37 SEC) > 120 *H 27 Hematology CBC w Diff NO MAN DIFF REQ WBC (4.8 - 10.8 /CUMM) 6.9 RBC (4.20 - 5.40 /CUMM) 5.10 Hgb (12.0 - 16.0 G/DL) 12.3 Hct (37 - 47 %) 39.1 MCV (81.0 - 99.0 FL) 76.6 L MCH (27.0 - 31.0 PG) 24.1 L MCHC (33.0 - 37.0 G/DL) 31.5 L RDW (11.5 - 14.5 %) 17.0 H Plt Count (130 - 400 /CUMM) 219 MPV (7.4 - 10.4 FL) 8.9 Gran % (42.2 - 75.2 %) 78.7 H Lymphocytes % (20.5 - 51.1 %) 14.9 L Monocytes % (1.7 - 9.3 %) 5.2 Eosinophils % (0 - 5 %) 0.8 Basophils % (0.0 - 2.0 %) 0.4 Absolute Granulocytes (1.4 - 6.5 /CUMM) 5.4 Absolute Lymphocytes (1.2 - 3.4 /CUMM) 1.0 L Absolute Monocytes (0.10 - 0.60 /CUMM) 0.4 Absolute Eosinophils (0.0 - 0.7 /CUMM) 0.1 Absolute Basophils (0.0 - 0.2 /CUMM) 0 Imaging/Other Studies: CTA chest 08/24/2017: PULMONARY ARTERIES: The pulmonary artery trunk is 2.4 cm in transverse diameter. Pulmonary arteries are normal in size. Scattered pulmonary emboli are seen. There are nonocclusive emboli within medial and lateral segmental branches of the middle lobe. Nonocclusive emboli are present within the apicoposterior segment of the left upper lobe. Also, emboli are seen in subsegmental branches of the left upper lobe, laterally. A nonocclusive embolus is present within a subsegmental branch of the posterior left lower lobe. THORACIC AORTA: Mild atherosclerotic calcification of the thoracic aorta without aneurysm or dissection. LUNGS AND PLEURA: Trachea and central airways are widely patent and normal in caliber. Mild centrilobular and paraseptal emphysema. There is mucus within a bronchus at the right lung apex (image 90, series 2). Also, mucus is seen in a bronchus of the left upper lobe (image 198, series 2). Small right pleural effusion with minimal atelectasis in the base of the right lower lobe. Small, 0.3 cm noncalcified nodule of the right lower lobe (image 210, series 2). No suspicious appearing nodule or mass. Mild atelectasis in the inferior lingula. No pneumothorax or left-sided pleural effusion. CARDIOVASCULAR: Mild cardiomegaly with dilated left atrium and left ventricle. The RV/LV ratio is 0.72 (abnormal if > 1). No evidence of inward bowing of the interventricular septum. Small pericardial effusion. MEDIASTINUM: The esophagus has normal wall thickness. The visualized portion of the thyroid gland is unremarkable. No mediastinal mass. LYMPHATICS: No pathologic sized axillary, hilar or mediastinal lymph nodes. UPPER ABDOMEN: There is reflux of contrast into the IVC and hepatic veins (which can be a manifestation of tricuspid regurgitation and elevated right heart pressure). Pneumobilia is likely secondary to prior papillotomy. Adrenal glands are unremarkable. Simple appearing cyst of the left kidney is partially included in the [id number] measures 2 cm AP diameter. OSSEOUS STRUCTURES: Multilevel discovertebral degenerative change of the visualized lower cervical and thoracic spine. No aggressive osseous lesions. US lower extremity 08/24/2017: Normal triplex scan without evidence of deep venous thrombosis involving the bilateral lower extremities. CTA abdomen/pelvis 08/25/2017: 1. No evidence of venous filling defect to suggest a thrombus. 2. No acute arterial vascular abnormality. Mild nonocclusive atherosclerotic disease. 3. Cholecystectomy. Pneumobilia with nonspecific dilatation of the common bile duct. 4. Colonic diverticulosis without diverticulitis. Moderate colonic stool burden. 5. Cardiomegaly. Small pericardial effusion. Tiny pleural effusions. 6. Fibroid uterus. Small volume of pelvic free fluid. Echocardiogram 08/24/2017: Mild left ventricular dilatation. Moderately reduced global left ventricular systolic function. Moderately abnormal left ventricular ejection fraction estimated at 35-40%. No obvious regional wall motion abnormalities. Mild to moderate left atrial dilatation. Mild thickening/calcification of the mitral valve leaflets. Moderate to marked mitral regurgitation. Structurally normal trileaflet aortic valve. No aortic stenosis. There is mild aortic regurgitation. Right ventricular systolic pressure estimated to be elevated at 50-55 mmHg. Moderate pulmonary hypertension. Dilated IVC. Assessment/Plan Assessment: Ms. Callahan is a 62-year-old female with paraplegia status post spinal infarct in 2001, peripheral neuropathy, asthma, HTN, gallstone pancreatitis s/p cholecystectomy in 2012, diabetes, elevated homocystinine, and urinary incontinence who presented to the hospital with shortness of breath. She was found to have bilateral pulmonary embolus. Lower extremity is negative for DVT. She likely has provoked pulmonary embolus from immobility. She is paraplegic at baseline from previous spinal infact in 2001. Work up in 2001 demonstrated low antithrombin III and protein S level. It is unclear if this as drawn at time of diagnosis. These will be low in setting of thrombus. Her response to heparin during this admission suggest she does not have antithrombin III deficiency. Protein S level may be checked again in the future. She has had work up with Factor V Leiden, lupus anticoagulant, and cardiolipin antibodies. These were negative. She does not have any other hypercoagulable finding. Elevated homocystinine level was noted but this is not a hypercoagulable finding. It is unclear if she has other work up. For now, she likely require indefinite duration anticoagulation given her risk factor of recurrent thrombus and immobility. She may be transition to any oral anticoagulant. She is also noted to have a microcytic anemia. Serum iron is low with normal ferritin. TIBC is normal. This is likely related to chronic disease. Iron deficiency can not be ruled out. She has never had colonoscopy. She will need this. Vitamin B12 and folate are normal. She is on folate normally. She can have a trial of iron supplementation. Recommendations: Bilateral pulmonary embolism -transition to oral anticoagulant -can complete other hypercoagulable work up as outpatient but unlikely to change management coordinator Microcytic anemia: -colonoscopy as outpatient -iron supplementation Problem List: 1. Pulmonary embolus 2. Paraplegia 3. history of thrombosis Other Findings/Comments: Please call [phone] Consult Acknowledgment - Thank you for your consult request.
[2017-08-26 11:56] LABS: PTT 35 SEC (25-37)
--- NOTE | 2017-08-26 12:04 | PN- Cardiology ---
Subjective Subjective: The patient is feeling okay. She is on telemetry. She remains in sinus rhythm with a heart rate around 100. She has no chest pain or excessive shortness of breath. She has been started on Coreg and Lasix. She still on heparin. Cardiac enzymes are negative 3. Objective Vital Signs and I&Os Vital Signs Date Time Temp Pulse Resp B/P B/P Pulse O2 O2 Flow FiO2 Mean Ox Delivery Rate 08/26 907 110 112/60 08/26 0602 98.2 102 20 110/70 93 08/25 2144 98.6 106 18 118/78 95 Room Air 08/25 2122 108 118/78 08/25 1800 105 24 97 Nasal 2.0L Cannula 08/25 1706 97.5 112 22 108/62 89 Room Air 08/25 1600 97 Nasal 2.0L Cannula 08/25 1403 120 118/70 Intake & Output 08/26 1600 08/26 0800 08/26 0000 08/25 1600 08/25 0800 08/25 0000 Intake Total 178 100 735 381 535.2 Output Total 250 1075 475 540 700 Balance -72 -975 260 -159 -164.8 Intake, IV 78 135 141 25.2 Intake, Oral 100 100 600 240 510 Number 0 0 Bowel Movements Output, Urine 250 1075 475 540 700 Patient 164 lb 150 lb Weight Weight Bed scale Measurement Method Physical Exam: She is in no distress HEENT exam normal Chest clear Heart moderate rate, regular rhythm, no murmurs No peripheral edema Current Medications: Current Medications Sig/Pita Start time Last Medication Dose Route Stop Time Status Admin Acetaminophen 650 MG Q6P PRN 08/24 2030 AC PO Aspirin Buffered 81 MG DAILY 08/25 1000 AC 08/26 PO 09 Atorvastatin Calcium 20 MG 1700 08/24 2100 AC 08/25 PO 1723 Carvedilol 3.125 MG BID 08/25 1115 AC 08/26 PO 0908 Cholecalciferol 4,000 IU DAILY 08/25 1000 AC 08/26 PO 09 Cyanocobalamin 500 MCG BID 08/26 2199 AC PO Cyanocobalamin 500 MCG BID 08/24 2199 DC 08/26 PO 0907 Folic Acid 1 MG DAILY 08/26 1000 AC 08/26 PO 0907 Furosemide 40 MG DAILY 08/25 1115 DC 08/25 PO 1403 Gabapentin 300 MG 4 TIMES/DAY 08/24 2199 AC 08/26 PO 0908 Heparin Sodium 5,000 UNIT .STK-MED ONE 08/25 211 DC (Porcine) IV 08/25 2120 Heparin Sodium 3,000 UNIT ONCE ONE 08/25 2100 DC 08/25 (Porcine) IV 08/25 2101 2121 Heparin Sodium 25,000 UNIT Q24H 08/24 1800 AC 08/26 (Porcine) IV 0030 Sodium Chloride 500 ML Hydrocortisone 1 ZULMA TIDPRN PRN 08/26 1015 AC 08/26 TOP 1112 Insulin Aspart 0 TIDAC 08/25 0800 AC 08/25 SC 1723 Insulin Aspart 0 AT BEDTIME 08/24 2200 AC SC Lorazepam 0.5 MG ONE ONE 08/25 1615 DC 08/25 PO 08/25 1616 1611 Lorazepam 0.5 MG BID PRN 08/24 2200 AC 08/25 PO 08/31 2058 0844 Morphine Sulfate 2 MG Q4P PRN 08/24 2030 AC IV Nortriptyline HCl 50 MG AT BEDTIME 08/24 2200 AC 08/25 PO 2123 Oxybutynin Chloride 2.5 MG BID 08/24 2200 AC 08/26 PO 0908 Pyridoxine HCl 50 MG DAILY 08/25 1000 AC 08/26 PO 0908 Senna/Docusate Sodium 1 TAB BID PRN 08/25 1100 AC 08/25 PO 1403 Sertraline HCl 100 MG DAILY 08/25 1000 AC 08/26 PO 0907 Simethicone 40 MG Q8P PRN 08/25 1130 AC 08/25 PO 1400 Trimethoprim/ 1 TAB DAILY 08/25 1000 DC 08/25 Sulfamethoxazole PO 08/26 0959 0845 Results Last 48 Hrs of Labs/Mics: Laboratory Tests 08/26/17 1045: APTT 35 08/26/17 0530: Anion Gap 12, Estimated GFR > 60, BUN/Creatinine Ratio 35.0 H, CBC w Diff NO MAN DIFF REQ, RBC 4.79, MCV 76.2 L, MCH 24.4 L, MCHC 32.0 L, RDW 16.8 H, MPV 9.5, Gran % 83.0 H, Lymphocytes % 7.8 L, Monocytes % 6.5, Eosinophils % 2.6, Basophils % 0.1, Absolute Granulocytes 6.6 H, Absolute Lymphocytes 0.6 L, Absolute Monocytes 0.5, Absolute Eosinophils 0.2, Absolute Basophils 0 08/26/17 0215: APTT 119 *H 08/25/17 1825: APTT 55 H 08/25/17 0940: Troponin I < 0.01, APTT 102 *H 08/25/17 0532: Anion Gap 11, Estimated GFR > 60, Glucose 140 H, Hemoglobin A1c 7.3 H, Calcium 8.5, Phosphorus 3.7, Magnesium 2.1, Total Bilirubin 0.5, AST 36, ALT 52, Troponin I 0.01, Albumin 3.3 L, CBC w Diff NO MAN DIFF REQ, RBC 4.84, MCV 76.7 L, MCH 24.7 L, MCHC 32.2 L, RDW 16.8 H, MPV 9.3, Gran % 75.9 H, Lymphocytes % 14.1 L, Monocytes % 7.9, Eosinophils % 1.6, Basophils % 0.5, Absolute Granulocytes 5.0, Absolute Lymphocytes 0.9 L, Absolute Monocytes 0.5, Absolute Eosinophils 0.1, Absolute Basophils 0 08/25/17 0100: Urinalysis MOD H, Urine Color YEL, Urine Clarity CLDY H, Urine pH 6.0, Ur Specific [place] 1.025, Urine Protein TRACE H, Urine Ketones TRACE H, Urine Nitrite NEG, Urine Bilirubin NEG, Urine Urobilinogen 1.0, Ur Leukocyte Esterase NEG, Ur Microscopic SEDIMENT EXAMINED, Urine RBC >75 H, Urine WBC 5-10 H, Ur Epithelial Cells MOD H, Urine Bacteria FEW H, Urine Mucus FEW, Urine Hemoglobin LARGE H, Urine Glucose >=1000 H 08/25/17 0057: APTT > 120 *H 08/24/17 2335: Troponin I 0.02 08/24/17 1727: Anion Gap 15, Estimated GFR > 60, BUN/Creatinine Ratio 38.3 H, Glucose 112 H, Calcium 9.4, Iron 26 L, TIBC 468, Ferritin 47.3, Total Bilirubin 0.6, AST 41 H , ALT 48, Alkaline Phosphatase 98, Troponin I < 0.01, Ome-A-Isycnetdsfx Pept 1530 H, Total Protein 6.9, Albumin 4.1, Globulin 2.8, Albumin/Globulin Ratio 1.5, Vitamin B12 > 1000 H, Folate > 20.0 H, PT 14.3 H, INR 1.37 H, APTT 27, CBC w Diff NO MAN DIFF REQ, RBC 5.10, MCV 76.6 L, MCH 24.1 L, MCHC 31.5 L, RDW 17.0 H, MPV 8.9, Gran % 78.7 H, Lymphocytes % 14.9 L, Monocytes % 5.2, Eosinophils % 0.8, Basophils % 0.4, Absolute Granulocytes 5.4, Absolute Lymphocytes 1.0 L, Absolute Monocytes 0.4, Absolute Eosinophils 0.1, Absolute Basophils 0 Microbiology 08/24 2254 UPPER RESP: Surveillance Culture - COMP 08/24 2254 GI: Surveillance Culture - COMP 08/24 2008 URINE ROUT: Urine Culture - COMP [facility]ROBACTER FREUNDII Assessment/Plan Assessment/Plan The patient is clinically better. She does not appear to be in gross congestive heart failure. I recommend a follow-up chest x-ray. I recommend increasing Coreg to 6.25 mg twice daily. I recommend a Persantine nuclear stress test. She can be transitioned to oral anticoagulants, I recommend Eliquis in pulmonary embolism doses to start. Continue telemetry? Yes
[2017-08-26 15:07] VITALS: BP 100/70
[2017-08-26 22:08] VITALS: BP 110/66
--- NOTE | 2017-08-27 02:32 | RADIOLOGY REPORT ---
EXAMINATION: XR CHEST CLINICAL INFORMATION: Congestive heart failure. COMPARISON: Chest x-ray March 08, 2013 TECHNIQUE: 2 views of the chest were obtained. FINDINGS: Heart size appears enlarged but AP projection accentuates cardiac silhouette size. No pulmonary vascular congestion. No infiltrate or pleural effusion. Multilevel degenerative change of the dorsal spine. IMPRESSION: Possible cardiomegaly. No acute abnormality of the chest. No significant pulmonary vascular congestion.
[2017-08-27 05:52] VITALS: BP 120/67
--- NOTE | 2017-08-27 07:29 | PN- Housestaff ---
Martha BORDEN,Ralph 08/27/17 0729: Subjective Follow-up For: CHF with reduced ejection fraction Pulmonary embolism Peripheral Tele-Events Since Last Visit: Sinus rhythm to sinus tach with heart rate of 94-113 Subjective: Patient was seen and examined today. Patient rash this morning was worse. Patient this morning complained of rash and itching that has now expanded to her back. Patient denies any shortness of breath, swelling of her lips or tongue or hands. Denies any chest pain or palpitations. Denies fever, chills, nausea/vomiting, abdominal pain, constipation/diarrhea, hematuria/dysuria. Patient notes a little bit of lower extremity swelling. No acute events overnight. Patient was n.p.o. for stress test this morning. Patient was seen again in the afternoon and noted that her rash is worsening. Review of Systems Constitutional: Reports: no symptoms. Cardiovascular: Reports: see HPI. Respiratory: Reports: no symptoms. Gastrointestinal: Reports: no symptoms. Genitourinary: Reports: no symptoms. Musculoskeletal: Reports: no symptoms. Skin: Reports: see HPI, rash. Objective Last 24 Hrs of Vital Signs/I&O Vital Signs Date Time Temp Pulse Resp B/P B/P Pulse O2 O2 Flow FiO2 Mean Ox Delivery Rate 08/27 1528 97.8 87 20 120/66 95 08/27 1016 100 120/67 08/27 0552 97.9 100 20 120/67 95 / 0000 Room Air Room Air 08/26 2210 112 122/72 08/26 2208 98.1 107 18 110/66 91 /08 1751 100 Nasal 2.0L Cannula Intake & Output 08/27 1600 08/27 0800 08/27 0000 Intake Total 360 175 Output Total 300 200 300 Balance 60 -200 -125 Intake, IV 10 Intake, Oral 350 175 Output, Urine 300 200 300 Physical Exam General Appearance: Alert, Oriented X3, Cooperative, No Acute Distress Skin: lacy erythematous rash over face, neck, chest, back and legs Skin Temp/Moisture Exam: Warm/Dry HEENT: Atraumatic, PERRLA, EOMI, Mucous Membr. moist/pink Neck: Supple, No JVD, No thryomegaly, +2 Carotid Pulse wo Bruit, No LAD Cardiovascular: Regular Rate, Normal S1, Normal S2, No Murmurs Lungs: Clear to Auscultation, Normal Air Movement Abdomen: Normal Bowel Sounds, Soft, No Tenderness Extremities: 1+ lower extremity edema, right foot with 3rd toe with dark ecchymotic area on plantar surface, mild erythema and minimal warmth, no open area or active discharge noted Vascular: nonpalpable pulses on R foot Current Medications: Current Medications Sig/Pita Start time Last Medication Dose Route Stop Time Status Admin Acetaminophen 650 MG Q6P PRN 08/24 2030 AC PO Apixaban 10 MG BID 08/26 1408 AC 08/27 PO 1016 Aspirin Buffered 81 MG DAILY 08/25 1000 AC 08/27 PO 1016 Atorvastatin Calcium 20 MG 1700 08/24 2100 AC 08/26 PO 1613 Carvedilol 6.25 MG BID 08/26 2200 AC 08/27 PO 1016 Carvedilol 3.125 MG BID 08/25 1115 DC 08/26 PO 0908 Cholecalciferol 4,000 IU DAILY 08/25 1000 AC 08/27 PO 1016 Cyanocobalamin 500 MCG BID 08/26 2200 AC 08/27 PO 1016 Diphenhydramine HCl 50 MG Q6P PRN 08/27 1800 AC PO Diphenhydramine HCl 25 MG ONCE ONE 08/27 1545 DC PO 08/27 1546 Diphenhydramine HCl 25 MG ONCE ONE 08/27 1330 DC 08/27 PO 08/27 1331 1401 Diphenhydramine HCl 25 MG ONCE ONE 08/27 0345 DC 08/27 PO 08/27 0346 0445 Diphenhydramine HCl 25 MG ONCE ONE 08/26 2230 DC 08/26 PO 08/26 2231 2231 Dipyridamole 45 MG ONE ONE 08/27 0800 DC Dextrose/Water 31 ML IV 08/27 0801 Ethacrynic Acid 50 MG DAILY 08/27 1000 AC 08/27 PO 1402 Folic Acid 1 MG DAILY 08/26 1000 AC 08/27 PO 1016 Gabapentin 300 MG 4 TIMES/DAY 08/24 2200 AC 08/27 PO 1401 Heparin Sodium 25,000 UNIT Q24H 08/24 1800 DC 08/26 (Porcine) IV 0030 Sodium Chloride 500 ML Hydrocortisone 1 ZULMA TIDPRN PRN 08/26 1015 AC 08/26 TOP 1112 Insulin Aspart 0 TIDAC 08/25 0800 AC 08/27 SC 1402 Insulin Aspart 0 AT BEDTIME 08/24 220 AC SC Lorazepam 0.5 MG BID PRN 08/24 2199 AC 08/26 PO 08/31 Methylprednisolone 40 MG ONCE ONE 08/27 729 DC 08/27 IV 08/27 730 075 Morphine Sulfate 2 MG Q4P PRN 08/24 2030 AC IV Nortriptyline HCl 50 MG AT BEDTIME 08/24 2199 AC 08/26 PO 220 Oxybutynin Chloride 2.5 MG BID 08/24 220 AC 08/27 PO 1016 Pyridoxine HCl 50 MG DAILY 08/25 1000 AC 08/27 PO 1016 Senna/Docusate Sodium 1 TAB BID PRN 08/25 1100 AC 08/25 PO 1403 Sertraline HCl 100 MG DAILY 08/25 1000 AC 08/27 PO 1016 Simethicone 40 MG Q8P PRN 08/25 1130 AC 08/25 PO 1400 Last 24 Hrs of Lab/Philip Results Last 24 Hrs of Labs/Mics: Laboratory Tests 08/27/17 0650: Anion Gap 12, Estimated GFR > 60, BUN/Creatinine Ratio 38.3 H, CBC w Diff NO MAN DIFF REQ, RBC 4.66, MCV 76.1 L, MCH 24.7 L, MCHC 32.4 L, RDW 17.2 H, MPV 9.6, Gran % 80.2 H, Lymphocytes % 8.0 L, Monocytes % 6.8, Eosinophils % 4.9, Basophils % 0.1, Absolute Granulocytes 5.9, Absolute Lymphocytes 0.6 L, Absolute Monocytes 0.5, Absolute Eosinophils 0.4, Absolute Basophils 0 Assessment/Plan Assessment: Patient is a 62 y/o female with a past medical history of asthma, paraplegia status post spinal infarct in 2001, homocystinemia, diabetes, peripheral neuropathy, urinary incontinence, hypertension, diabetes, pseudo-gout, and gallstone pancreatitis hospital post cholecystectomy in 2012. She presents with an 8 day history of shortness of breath that is worse on exertion with occasional nonproductive cough. A CT angiogram of her chest showed scattered bilateral pulmonary embolisms along with Cardiomegaly and some signs of elevated RV pressures. She'll be admitted and monitored closely in the ICU for a pulmonary embolism. Intravenous anticoagulation with IV heparin. Of note, she does after to have a past history of thromboembolic events with spinal cord infarct and likely will require longitudinal float operator anticoagulation. Patient has been switched to eliquis per cardiology recommendations. Patient stabilized and transferred to telemetry for management of the following: Problem list 1. Bilateral pulmonary embolism with history of previous thromboembolic events and homocystinemia 2. Congestive heart failure with reduced ejection fraction of 30-35% and cardiomyopathy 3. Peripheral vascular disease Hypertension 4. Skin rash likely drug allergy 5. Diabetes mellitus with peripheral neuropathy 6. Paraplegia status post spinal cord infarct 7. History of asthma with emphysema on CT scan of chest 8. Depression 9. Ex-smokerquit 2 weeks ago Plan 1. Bilateral pulmonary embolism with history of previous thromboembolic events and homocystinemia * Patient currently on eliquis 10mg BID for anticoagulation with pulmonary embolism protocol. Patient will require 7 days of eliquis 10mg BID followed by eliquis 5mg BID * Pulmonology, cardiology and hematology onboard. Appreciate recommendations * Monitor H&H 2. Cardiomyopathy with reduced ejection fraction of 30-35% and lower extremity swelling * CXR showing cardiomegaly with no pulmonary congestion or pleural effusions seen * Echo showing reduced ejection fraction and high right ventricular systolic pressure * Patient switched from lasix to ethacrynic acid due to possible drug allergy with lasix as it has a sulfa moiety which may be the culprit of patient's rash * monitor strict I/O and daily weights * Perstantine stress test done today without evidence of ischemia. Etiology of cardiomyopathy is unclear at this time. 3. Peripheral Vascular Disease. * Patient had a doppler arterial study showing right posterior tibialis and dorsalis pedis with near monophasic flow conserning for near occlusion * Patient currently on anticoagulation * Vascular surgery on board. Appreciate recommendations * Patient will require HEATHER PVR studies to be done outpatient and close follow up with vascular surgery 4. Skin Rash - likley drug allergy * Lasix and bactrim held - likely culprits * Give benadryl 50mg PO q6h PRN * Hydrocortisone cream 2.5% PRN 5. Hypertension * Losartan restarted today * Monitor bp 6. Diabetes mellitus with peripheral neuropathy * Hold home medication of Januvia, glimepiride and Jardiance * Accu-Cheks 3 times a day before meals at bedtime * Start NovoLog sliding scale 3 times a day before meals at bedtime * Continue gabapentin and nortriptyline for neuropathic 7. Paraplegia status post spinal cord infarct * Offloading pressure points with heel pads as patient is paraplegic * Daily dressing for Right toe ulcers (Big toe and 3rd toe) 8. History of asthma with emphysema on CT scan of chest * [facility] * Oxygen as needed to keep PO2 greater than 92% 9. Depression * Continue sertraline 10. Ex-smokerquit 2 weeks ago * Patient refused nicotine patch DVT prophylaxis: On eliquis CODE STATUS: Patient is full code Diet: Diabetic diet Dispo: Patient's rash worsened today. Will monitor today and discharge home tomorrow with close follow up with vascular, cardiology, pulmonology and hematology Problem List: 1. Pulmonary embolus Pain Ratin Pain Location: n/a Pain Goal: Remain pain free Pain Plan: n/a Tomorrow's Labs & Rationales: bep- on loop diuretic Sergio Yip MD 08/27/17 1723: Attending MD Review Statement Attending Statement Attending MD Statement: examined this patient, discuss w/resident/PA/ACTIVITIES LEADER, agreed w/resident/PA/ACTIVITIES LEADER, reviewed EMR data (avail), discussed with nursing, discussed with case mgmt, reviewed images, amended to note Attending Assessment/Plan: The patient was seen and discussed with house staff and Cardiology (Dr. Mckeon ). Dipy Myoview shows findings c/w non-ischemic dilated cardiomyopathy (EF 33%). Rash is more diffuse, however most c/w drug rash (secondary to sulfa/Lasix). Will observe overnight and possible discharge in morning on Eliquis, Edicrynic acid, etc. Will increase benadryl to 50 mg q6hr prn.
[2017-08-27 08:14] LABS: ABSOLUTE BASOPHIL COUNT 0 /CUMM (0.0-0.2); ABSOLUTE EOSINOPHIL COUNT 0.4 /CUMM (0.0-0.7); ABSOLUTE GRANULOCYTE CT 5.9 /CUMM (1.4-6.5); ABSOLUTE LYMPH COUNT 0.6 /CUMM (1.2-3.4); ABSOLUTE MONOCYTE COUNT 0.5 /CUMM (0.10-0.60); BASOPHIL % 0.1 % (0.0-2.0); EOSINOPHIL % 4.9 % (0-5); GRANULOCYTE % 80.2 % (42.2-75.2); HEMATOCRIT 35.5 % (37-47); MEAN CORPUSCULAR HGB 24.7 PG (27.0-31.0); MEAN CORPUSCULAR HGB CONC 32.4 G/DL (33.0-37.0); MEAN CORPUSCULAR VOLUME 76.1 FL (81.0-99.0); MEAN PLATELET VOLUME 9.6 FL (7.4-10.4); PLATELET COUNT 191 /CUMM (130-400); RBC DISTRIBUTION WIDTH 17.2 % (11.5-14.5); RED BLOOD CELL CT 4.66 /CUMM (4.20-5.40); WHITE BLOOD CELL COUNT 7.3 /CUMM (4.8-10.8)
--- NOTE | 2017-08-27 08:27 | PN- Student ---
Nicki Nation 08/27/17 0741: Subjective Subjective: FOLLOW UP FOR: Bilateral PE No overnight events.Patient's has been in Sinus rhythms with rates of around 100.Patient was alert and cooperative this morning.Reports that she slept well for half of the night but was awakened by discomfort and itch of a new rash.Rash currently is throughout her entire body.Patient reported that it first started of on Wednesday but it was only on her head but it progressively spread yesterday to her forehead and face and was given Benedryll. This morning it has now spread to her chest,under her breast and back.She also reports thar her ear hurts and is inflammed.Patient also reports that her breathing is ok and much improved compared to baseline. Review of Systems Review of Systems Constitutional: Denies: chills, fever. EENTM: Reports: ear pain, ear redness, nasal congestion. Cardiovascular: Denies: chest pain, palpitations. Respiratory: Denies: cough, short of breath, sputum production. GI: Denies: abdominal pain, bloating, constipation. Genitourinary: Reports: no symptoms. Musculoskeletal: Reports: no symptoms. Skin: Reports: erythema, rash. Objective Objective: Vital Signs Date Time Temp Pulse Resp B/P B/P Pulse O2 O2 Flow FiO2 Mean Ox Delivery Rate 08/27 0552 97.9 100 20 120/67 95 08/27 0000 Room Air Room Air 08/26 2210 112 122/72 08/268 98.1 107 18 110/66 91 08/26 1751 100 Nasal 2.0L Cannula 08/26 1507 98.7 107 20 100/70 97 08/26 0908 110 112/60 Intake & Output 08/27 0800 08/27 0000 08/26 1600 Intake Total 175 824 Output Total 200 300 350 Balance -200 -125 474 Intake, IV 144 Intake, Oral 175 680 Number 1 Bowel Movements Output, Urine 200 300 350 Current Medications Sig/Pita Start time Last Medication Dose Route Stop Time Status Admin Acetaminophen 650 MG Q6P PRN 08/24 2030 AC PO Apixaban 10 MG BID 08/26 1408 AC 08/26 PO 2207 Aspirin Buffered 81 MG DAILY 08/25 1000 AC 08/26 PO 0907 Atorvastatin Calcium 20 MG 1700 08/24 2100 AC 08/26 PO 1613 Carvedilol 6.25 MG BID 08/26 2200 AC 08/26 PO 2210 Carvedilol 3.125 MG BID 08/25 1115 DC 08/26 PO 0908 Cholecalciferol 4,000 IU DAILY 08/25 1000 AC 08/26 PO 0907 Cyanocobalamin 500 MCG BID 08/26 2200 AC PO Cyanocobalamin 500 MCG BID 08/24 2200 DC 08/26 PO 0907 Diphenhydramine HCl 25 MG ONCE ONE 08/27 0345 DC 08/27 PO 08/27 0346 0445 Diphenhydramine HCl 25 MG ONCE ONE 08/26 2230 DC 08/26 PO 08/26 2231 2231 Diphenhydramine HCl 25 MG ONCE ONE 08/26 1545 DC 08/26 IV 08/26 1546 1613 Diphenhydramine HCl 25 MG ONCE ONE 08/26 1315 DC 08/26 IV 08/26 1316 1323 Dipyridamole 45 MG ONE ONE 08/27 0800 AC Dextrose/Water 31 ML IV 08/27 0801 Ethacrynic Acid 50 MG DAILY 08/27 1000 AC PO Folic Acid 1 MG DAILY 08/26 1000 AC 08/26 PO 0907 Furosemide 40 MG DAILY 08/25 1115 DC 08/25 PO 1403 Gabapentin 300 MG 4 TIMES/DAY 08/24 2200 AC 08/26 PO 2207 Heparin Sodium 5,000 UNIT .STK-MED ONE 08/26 1229 DC (Porcine) IV 08/26 1230 Heparin Sodium 5,500 UNIT ONCE ONE 08/26 1200 DC 08/26 (Porcine) IV 08/26 1201 1246 Heparin Sodium 25,000 UNIT Q24H 08/24 1800 DC 08/26 (Porcine) IV 0030 Sodium Chloride 500 ML Hydrocortisone 1 ZULMA TIDPRN PRN 08/26 1015 AC 08/26 TOP 1112 Insulin Aspart 0 TIDAC 08/25 0800 AC 08/26 SC 1718 Insulin Aspart 0 AT BEDTIME 08/24 220 AC SC Lorazepam 0.5 MG BID PRN 08/24 2200 AC 08/26 PO 08/31 2058 2127 Methylprednisolone 40 MG ONCE ONE 08/27 0730 DC 08/27 IV 08/27 0731 0758 Morphine Sulfate 2 MG Q4P PRN 08/24 2030 AC IV Nortriptyline HCl 50 MG AT BEDTIME 02/2199 AC 08/26 PO 220 Oxybutynin Chloride 2.5 MG BID 08/24 2200 AC 08/26 PO 220 Pyridoxine HCl 50 MG DAILY 08/25 1000 AC 08/26 PO 0908 Senna/Docusate Sodium 1 TAB BID PRN 08/25 1100 AC 08/25 PO 1403 Sertraline HCl 100 MG DAILY 08/25 1000 AC 08/26 PO 0907 Simethicone 40 MG Q8P PRN 08/25 1130 AC 08/25 PO 1400 Trimethoprim/ 1 TAB DAILY 08/25 1000 DC 08/25 Sulfamethoxazole PO 08/26 0959 0845 Results Results: Laboratory Tests 08/27/17 0650: Sodium Pending, Potassium Pending, Chloride Pending, Carbon Dioxide Pending, Anion Gap Pending, BUN Pending, Creatinine Pending, BUN/Creatinine Ratio Pending , CBC w Diff Pending, WBC Pending, RBC Pending, Hgb Pending, Hct Pending, MCV Pending, MCH Pending, MCHC Pending, RDW Pending, Plt Count Pending, MPV Pending 08/26/17 1045: APTT 35 08/26/17 0530: Anion Gap 12, Estimated GFR > 60, BUN/Creatinine Ratio 35.0 H, CBC w Diff NO MAN DIFF REQ, RBC 4.79, MCV 76.2 L, MCH 24.4 L, MCHC 32.0 L, RDW 16.8 H, MPV 9.5, Gran % 83.0 H, Lymphocytes % 7.8 L, Monocytes % 6.5, Eosinophils % 2.6, Basophils % 0.1, Absolute Granulocytes 6.6 H, Absolute Lymphocytes 0.6 L, Absolute Monocytes 0.5, Absolute Eosinophils 0.2, Absolute Basophils 0 08/26/17 0215: APTT 119 *H 08/25/17 1825: APTT 55 H 08/25/17 0940: Troponin I < 0.01, APTT 102 *H 08/25/17 0532: Anion Gap 11, Estimated GFR > 60, Glucose 140 H, Hemoglobin A1c 7.3 H, Calcium 8.5, Phosphorus 3.7, Magnesium 2.1, Total Bilirubin 0.5, AST 36, ALT 52, Troponin I 0.01, Albumin 3.3 L, CBC w Diff NO MAN DIFF REQ, RBC 4.84, MCV 76.7 L, MCH 24.7 L, MCHC 32.2 L, RDW 16.8 H, MPV 9.3, Gran % 75.9 H, Lymphocytes % 14.1 L, Monocytes % 7.9, Eosinophils % 1.6, Basophils % 0.5, Absolute Granulocytes 5.0, Absolute Lymphocytes 0.9 L, Absolute Monocytes 0.5, Absolute Eosinophils 0.1, Absolute Basophils 0 08/25/17 0100: Urinalysis MOD H, Urine Color YEL, Urine Clarity CLDY H, Urine pH 6.0, Ur Specific [place] 1.025, Urine Protein TRACE H, Urine Ketones TRACE H, Urine Nitrite NEG, Urine Bilirubin NEG, Urine Urobilinogen 1.0, Ur Leukocyte Esterase NEG, Ur Microscopic SEDIMENT EXAMINED, Urine RBC >75 H, Urine WBC 5-10 H, Ur Epithelial Cells MOD H, Urine Bacteria FEW H, Urine Mucus FEW, Urine Hemoglobin LARGE H, Urine Glucose >=1000 H 08/25/17 0057: APTT > 120 *H 08/24/17 2335: Troponin I 0.02 08/24/17 1727: Anion Gap 15, Estimated GFR > 60, BUN/Creatinine Ratio 38.3 H, Glucose 112 H, Calcium 9.4, Iron 26 L, TIBC 468, Ferritin 47.3, Total Bilirubin 0.6, AST 41 H , ALT 48, Alkaline Phosphatase 98, Troponin I < 0.01, [id number] Pept 1530 H, Total Protein 6.9, Albumin 4.1, Globulin 2.8, Albumin/Globulin Ratio 1.5, Vitamin B12 > 1000 H, Folate > 20.0 H, PT 14.3 H, INR 1.37 H, APTT 27, CBC w Diff NO MAN DIFF REQ, RBC 5.10, MCV 76.6 L, MCH 24.1 L, MCHC 31.5 L, RDW 17.0 H, MPV 8.9, Gran % 78.7 H, Lymphocytes % 14.9 L, Monocytes % 5.2, Eosinophils % 0.8, Basophils % 0.4, Absolute Granulocytes 5.4, Absolute Lymphocytes 1.0 L, Absolute Monocytes 0.4, Absolute Eosinophils 0.1, Absolute Basophils 0 Microbiology 08/24 2254 UPPER RESP: Surveillance Culture - COMP 08/24 2254 GI: Surveillance Culture - COMP 08/24 2008 URINE ROUT: Urine Culture - COMP [facility] FREUNDII Chest XRAY Heart size appears enlarged but AP projection accentuates cardiac silhouette size. No pulmonary vascular congestion. No infiltrate or pleural effusion. Multilevel degenerative change of the dorsal spine. Possible cardiomegaly. No acute abnormality of the chest. No significant pulmonary vascular congestion. Physical Exam Physical Exam General Appearance: alert, awake, mild distress Head: atraumatic Eyes: Bilateral: PERRL. Neck: supple, full range of motion Respiratory: normal breath sounds, no respiratory distress Cardiovascular: regular rate/rhythm Gastrointestinal: normal bowel sounds, soft, non-tender Skin: rash Core Measures ACS in differential dx? No CVA/TIA Diagnosis: No Sepsis Present: No Sepsis Focused Exam Completed? No Assessment/Plan Assessment: Patient is a 62-year-old woman with a past medical history of asthma, paraplegia status post spinal infarct in 2001, homocystinemia, diabetes, peripheral neuropathy, urinary incontinence(Self Cath), hypertension, diabetes, pseudo-gout , and gallstone pancreatitis hospital post cholecystectomy in 2012. She presented after an 8 day history of shortness of breath that is worse on exertion and relieved when she rests.She also presents with bilateral leg swelling (right greater than left ) since the past 2 weeks which is worse than her baseline. Of note patient is paraplegic and does not feel pain sensations below the waist. A CT angiogram of her chest showed scattered bilateral pulmonary embolisms along with Cardiomegaly and some signs of elevated RV pressures. Doppler Ultrasound of the bilateral lower extremities was negative for emboli.Intravenous anticoagulation of heparin was started. Of note, she does have a past history of thromboembolic events with a spinal cord infarct and possible homocystinemia so she will likely have to be anticoagulated on a long- term basis. Problem list: 1) Bilateral Pulmonary Embolism 2)Paraplegia status post spinal cord infarct 3)Bilateral leg swelling Plan: Bilateral Pulmonary Embolism Patient reported to her primary care Doctor with a complaint of shortness of breath.A CT angiogram was performed which showed scattered bilateral bilateral pulmonary embolism, cardiomegaly and suggestions of elevated right-sided pressure and was sent to the ER for further evaluation.She was admitted to ICU and when stabalized moved to telemetry. -IV heparin discontinued and switched to eliquis 10mg BID for anticoagulation with pulmonary embolism protocol. -continue folate and Vitamin B12 supplementation -trial iron supplementation for possible microcytic anemia -monitor CBC for anemia and pancytopenia while on heparin therapy -Patients Pro BNP was elevated at 1530 pg/ml which could be reflective of her pulmonary embolism or congestive heart failure -Losartan home medication was held due to normal blood pressures at this time Paraplegia status post spinal cord infarct -Offloading pressure points with heel pads as patient is paraplegic -Daily dressing for Right toe ulcers (Big toe and 3rd toe) Bilateral leg swelling Patient appears to have CHF and was evaluated by a interceptor operator.Patient was started on lasix 40mg 08/25 and seems to be tolerating it well.Patient reports that she noticed the swelling in her feet have significantly decreased as compared to admission. -continue lasix DVT prophylaxis:IV heparin drip Diet:Heart healthy CODE STATUS:Full code Ralph Thomas MD 08/27/17 1723: Resident Review Statement Resident Statement: examined this patient, discussed with medical student
--- NOTE | 2017-08-27 09:39 | PN- Hematology ---
Subjective Subjective: She feels about the same. She does have a new rash. She denies any issues with breathing. She was started on apixaban yesterday. Rash occurred prior to the apixaban. Review of Systems Constitutional: Denies: chills, fever, weakness. Cardiovascular: Denies: chest pain. Respiratory: Denies: hemoptysis, short of breath. Gastrointestinal: Denies: abdominal pain. Skin: Reports: rash. Hematologic/Endocrine: Denies: bruising, bleeding. All Other Systems: Reviewed and Negative Objective Vital Signs and I&Os Vital Signs Date Time Temp Pulse Resp B/P B/P Pulse O2 O2 Flow FiO2 Mean Ox Delivery Rate 08/27 0552 97.9 100 20 120/67 95 08/27 0000 Room Air Room Air 08/26 2209 112 122/72 08/26 2207 98.1 107 18 110/66 91 08/26 1751 100 Nasal 2.0L Cannula 08/26 1507 98.7 107 20 100/70 97 08/26 0908 110 112/60 Intake & Output 08/27 1600 08/27 0000 08/26 1600 08/26 0000 Intake Total 175 824 178 100 Output Total 200 300 483 036 2831 Balance -200 -125 474 -72 -975 Intake, IV 144 78 Intake, Oral 175 680 100 100 Number 1 Bowel Movements Output, Urine 200 300 566 514 3624 Physical Exam: General Appearance: well developed/nourished, no apparent distress, comfortable Respiratory: normal breath sounds, chest non-tender, no respiratory distress Cardiovascular: regular rate/rhythm Gastrointestinal: normal bowel sounds, soft, non-tender Extremities: RLE with skin breakdown , muscle wasting in lower extremity, edema in lower extremity, LLE with purple discoloration Neurologic/Psych: awake, alert, oriented x 3 Skin: rash in face and chest, RLE: warm to touch, LLE: cool to touch Current Medications: Current Medications Sig/Pita Start time Last Medication Dose Route Stop Time Status Admin Acetaminophen 650 MG Q6P PRN 08/24 2030 AC PO Apixaban 10 MG BID 08/26 1408 AC 08/26 PO 220 Aspirin Buffered 81 MG DAILY 08/25 1000 AC 08/26 PO 0907 Atorvastatin Calcium 20 MG 1700 08/24 2100 AC 08/26 PO 1613 Carvedilol 6.25 MG BID 08/26 2200 AC 08/26 PO 2210 Carvedilol 3.125 MG BID 08/25 1115 DC 08/26 PO 0908 Cholecalciferol 4,000 IU DAILY 08/25 1000 AC 08/26 PO 0907 Cyanocobalamin 500 MCG BID 08/26 2200 AC PO Cyanocobalamin 500 MCG BID 08/24 2200 DC 08/26 PO 0907 Diphenhydramine HCl 25 MG ONCE ONE 08/27 0345 DC 08/27 PO 08/27 0346 0445 Diphenhydramine HCl 25 MG ONCE ONE 08/26 2230 DC 08/26 PO 08/26 2231 2231 Diphenhydramine HCl 25 MG ONCE ONE 08/26 1545 DC 08/26 IV 08/26 1546 1613 Diphenhydramine HCl 25 MG ONCE ONE 08/26 1315 DC 08/26 IV 08/26 1316 1323 Dipyridamole 45 MG ONE ONE 08/27 0800 DC Dextrose/Water 31 ML IV 08/27 0801 Ethacrynic Acid 50 MG DAILY 08/27 1000 AC PO Folic Acid 1 MG DAILY 08/26 1000 AC 08/26 PO 0907 Furosemide 40 MG DAILY 08/25 1115 DC 08/25 PO 1403 Gabapentin 300 MG 4 TIMES/DAY 08/24 2200 AC 08/26 PO 2207 Heparin Sodium 5,000 UNIT .STK-MED ONE 08/26 1229 DC (Porcine) IV 08/26 1230 Heparin Sodium 5,500 UNIT ONCE ONE 08/26 1200 DC 08/26 (Porcine) IV 08/26 1201 1246 Heparin Sodium 25,000 UNIT Q24H 08/24 1800 DC 08/26 (Porcine) IV 0030 Sodium Chloride 500 ML Hydrocortisone 1 ZULMA TIDPRN PRN 08/26 1015 AC 08/26 TOP 1112 Insulin Aspart 0 TIDAC 08/25 0800 AC 08/26 SC 1718 Insulin Aspart 0 AT BEDTIME 08/24 2200 AC SC Lorazepam 0.5 MG BID PRN 08/24 2200 AC 08/26 PO 08/31 2058 2127 Methylprednisolone 40 MG ONCE ONE 08/27 0730 DC 08/27 IV 08/27 0731 0758 Morphine Sulfate 2 MG Q4P PRN 08/24 2030 AC IV Nortriptyline HCl 50 MG AT BEDTIME 08/24 2200 AC 08/26 PO 2207 Oxybutynin Chloride 2.5 MG BID 08/24 2200 AC 08/26 PO 2207 Pyridoxine HCl 50 MG DAILY 08/25 1000 AC 08/26 PO 0908 Senna/Docusate Sodium 1 TAB BID PRN 08/25 1100 AC 08/25 PO 1403 Sertraline HCl 100 MG DAILY 08/25 1000 AC 08/26 PO 0907 Simethicone 40 MG Q8P PRN 08/25 1130 AC 08/25 PO 1400 Trimethoprim/ 1 TAB DAILY 08/25 1000 DC 08/25 Sulfamethoxazole PO 08/26 0959 0845 Results Last 24 Hours of Lab Results: Laboratory Tests 08/27 08/26 0650 1045 Chemistry Sodium (137 - 145 mmol/L) 136 L Potassium (3.5 - 5.1 mmol/L) 3.7 Chloride (98 - 107 mmol/L) 101 Carbon Dioxide (22 - 30 mmol/L) 23 Anion Gap (5 - 16) 12 BUN (7 - 17 mg/dL) 23 H Creatinine (0.5 - 1.0 mg/dL) 0.6 Estimated GFR (>60 ml/min) > 60 BUN/Creatinine Ratio (7 - 25 %) 38.3 H Coagulation APTT (25 - 37 SEC) 35 Hematology CBC w Diff NO MAN DIFF REQ WBC (4.8 - 10.8 /CUMM) 7.3 RBC (4.20 - 5.40 /CUMM) 4.66 Hgb (12.0 - 16.0 G/DL) 11.5 L Hct (37 - 47 %) 35.5 L MCV (81.0 - 99.0 FL) 76.1 L MCH (27.0 - 31.0 PG) 24.7 L MCHC (33.0 - 37.0 G/DL) 32.4 L RDW (11.5 - 14.5 %) 17.2 H Plt Count (130 - 400 /CUMM) 191 MPV (7.4 - 10.4 FL) 9.6 Gran % (42.2 - 75.2 %) 80.2 H Lymphocytes % (20.5 - 51.1 %) 8.0 L Monocytes % (1.7 - 9.3 %) 6.8 Eosinophils % (0 - 5 %) 4.9 Basophils % (0.0 - 2.0 %) 0.1 Absolute Granulocytes (1.4 - 6.5 /CUMM) 5.9 Absolute Lymphocytes (1.2 - 3.4 /CUMM) 0.6 L Absolute Monocytes (0.10 - 0.60 /CUMM) 0.5 Absolute Eosinophils (0.0 - 0.7 /CUMM) 0.4 Absolute Basophils (0.0 - 0.2 /CUMM) 0 Assessment/Plan Assessment/Recommendations: Ms. Callahan is a 62-year-old female with paraplegia status post spinal infarct in 2001, peripheral neuropathy, asthma, HTN, gallstone pancreatitis s/p cholecystectomy in 2012, diabetes, elevated homocystinine, and urinary incontinence who presented to the hospital with shortness of breath. She was found to have bilateral pulmonary embolus. Lower extremity is negative for DVT. She likely has provoked pulmonary embolus from immobility. She is paraplegic at baseline from previous spinal infact in 2001. Work up in 2001 demonstrated low antithrombin III and protein S level. It is unclear if this as drawn at time of diagnosis. These will be low in setting of thrombus. Her response to heparin during this admission suggest she does not have antithrombin III deficiency. Protein S level may be checked again in the future. She has had work up with Factor V Leiden, lupus anticoagulant, and cardiolipin antibodies. These were negative. She does not have any other hypercoagulable finding. Elevated homocystinine level was noted but this is not a hypercoagulable finding. It is unclear if she has other work up. For now, she likely require indefinite duration anticoagulation given her risk factor of recurrent thrombus and immobility. She is now on apixaban. She is also noted to have a microcytic anemia. She has not had colonoscopy and will need colonoscopy. Bilateral pulmonary embolism -continue apixaban -can complete other hypercoagulable work up as outpatient but unlikely to change coordinator Microcytic anemia: -colonoscopy as outpatient -iron supplementation Please call [phone] with any questions or concerns. Problem List: 1. Pulmonary embolus 2. Paraplegia
--- NOTE | 2017-08-27 10:21 | PN- Cardiology ---
Subjective Subjective: The patient underwent Persantine nuclear stress test this morning. She tolerated the medication well. Nuclear scan results are pending and will be available some time this afternoon. Otherwise she has been feeling generally well without chest pain or excessive shortness of breath. She is on edecrine, Losartan, Eliquis, carvedilol 6.25 mg twice a day. Objective Vital Signs and I&Os Vital Signs Date Time Temp Pulse Resp B/P B/P Pulse O2 O2 Flow FiO2 Mean Ox Delivery Rate 08/27 0552 97.9 100 20 120/67 95 08/27 0000 Room Air Room Air 08/26 2209 112 122/72 08/26 2207 98.1 107 18 110/66 91 08/26 1751 100 Nasal 2.0L Cannula 08/26 1507 98.7 107 20 100/70 97 Intake & Output 08/27 1600 08/27 0800 08/27 0000 08/26 1600 08/26 0700 08/26 0000 Intake Total 175 824 178 100 Output Total 200 300 639 092 3833 Balance -200 -125 474 -72 -975 Intake, IV 144 78 Intake, Oral 175 680 100 100 Number 1 Bowel Movements Output, Urine 200 300 876 418 9031 Physical Exam: She is in no distress Lungs are clear Heart regular rhythm, no murmurs Current Medications: Current Medications Sig/Pita Start time Last Medication Dose Route Stop Time Status Admin Acetaminophen 650 MG Q6P PRN 08/24 2030 AC PO Apixaban 10 MG BID 08/26 1408 AC 08/26 PO 2207 Aspirin Buffered 81 MG DAILY 08/25 1000 AC 08/26 PO 0907 Atorvastatin Calcium 20 MG 1700 08/24 2100 AC 08/26 PO 1613 Carvedilol 6.25 MG BID 08/26 2200 AC 08/26 PO 2210 Carvedilol 3.125 MG BID 08/25 1115 DC 08/26 PO 0908 Cholecalciferol 4,000 IU DAILY 08/25 1000 AC 08/26 PO 0907 Cyanocobalamin 500 MCG BID 08/26 2200 AC PO Cyanocobalamin 500 MCG BID 08/24 2200 DC 08/26 PO 0907 Diphenhydramine HCl 25 MG ONCE ONE 08/27 0345 DC 08/27 PO 08/27 0346 0445 Diphenhydramine HCl 25 MG ONCE ONE 08/26 2229 DC 02/08 PO 08/26 2231 2231 Diphenhydramine HCl 25 MG ONCE ONE 08/26 1545 DC 08/26 IV 08/26 1546 1613 Diphenhydramine HCl 25 MG ONCE ONE 08/26 1315 DC 08/26 IV 08/26 1316 1323 Dipyridamole 45 MG ONE ONE 08/27 0800 DC Dextrose/Water 31 ML IV 08/27 0801 Ethacrynic Acid 50 MG DAILY 08/27 1000 AC PO Folic Acid 1 MG DAILY 08/26 1000 AC 08/26 PO 0907 Gabapentin 300 MG 4 TIMES/DAY 08/24 2200 AC 08/26 PO 2207 Heparin Sodium 5,000 UNIT .STK-MED ONE 08/26 1229 DC (Porcine) IV 08/26 1230 Heparin Sodium 5,500 UNIT ONCE ONE 08/26 1200 DC 08/26 (Porcine) IV 08/26 1201 1246 Heparin Sodium 25,000 UNIT Q24H 08/24 1800 DC 08/26 (Porcine) IV 0030 Sodium Chloride 500 ML Hydrocortisone 1 ZULMA TIDPRN PRN 08/26 1015 AC 08/26 TOP 1112 Insulin Aspart 0 TIDAC 08/25 0800 AC 08/26 SC 1718 Insulin Aspart 0 AT BEDTIME 08/24 2200 AC SC Lorazepam 0.5 MG BID PRN 08/24 2200 AC 08/26 PO 08/31 2059 2127 Methylprednisolone 40 MG ONCE ONE 08/27 0730 DC 08/27 IV 08/27 0731 0758 Morphine Sulfate 2 MG Q4P PRN 08/24 2030 AC IV Nortriptyline HCl 50 MG AT BEDTIME 08/24 2200 AC 08/26 PO 2207 Oxybutynin Chloride 2.5 MG BID 08/24 2200 AC 08/26 PO 2207 Pyridoxine HCl 50 MG DAILY 08/25 1000 AC 08/26 PO 0908 Senna/Docusate Sodium 1 TAB BID PRN 08/25 1100 AC 08/25 PO 1403 Sertraline HCl 100 MG DAILY 08/25 1000 AC 08/26 PO 0907 Simethicone 40 MG Q8P PRN 08/25 1130 AC 08/25 PO 1400 Results Last 48 Hrs of Labs/Mics: Laboratory Tests 08/27/17 0650: Anion Gap 12, Estimated GFR > 60, BUN/Creatinine Ratio 38.3 H, CBC w Diff NO MAN DIFF REQ, RBC 4.66, MCV 76.1 L, MCH 24.7 L, MCHC 32.4 L, RDW 17.2 H, MPV 9.6, Gran % 80.2 H, Lymphocytes % 8.0 L, Monocytes % 6.8, Eosinophils % 4.9, Basophils % 0.1, Absolute Granulocytes 5.9, Absolute Lymphocytes 0.6 L, Absolute Monocytes 0.5, Absolute Eosinophils 0.4, Absolute Basophils 0 08/26/17 1045: APTT 35 08/26/17 0530: Anion Gap 12, Estimated GFR > 60, BUN/Creatinine Ratio 35.0 H, CBC w Diff NO MAN DIFF REQ, RBC 4.79, MCV 76.2 L, MCH 24.4 L, MCHC 32.0 L, RDW 16.8 H, MPV 9.5, Gran % 83.0 H, Lymphocytes % 7.8 L, Monocytes % 6.5, Eosinophils % 2.6, Basophils % 0.1, Absolute Granulocytes 6.6 H, Absolute Lymphocytes 0.6 L, Absolute Monocytes 0.5, Absolute Eosinophils 0.2, Absolute Basophils 0 08/26/17 0215: APTT 119 *H 08/25/17 1825: APTT 55 H Recent Imaging Studies: PATIENT: VIDYA FREEMAN PRESENT AGE: 62 PATIENT ACCOUNT NO: [id number] : 53 LOCATION: [facility] ORDERING PHYSICIAN: Ralph Thomas MD SERVICE DATE: 08/26/17- EXAM TYPE: RAD - XRY-CHEST XRAY, TWO VIEWS EXAMINATION: XR CHEST CLINICAL INFORMATION: Congestive heart failure. COMPARISON: Chest x-ray March 08, 2013 TECHNIQUE: 2 views of the chest were obtained. FINDINGS: Heart size appears enlarged but AP projection accentuates cardiac silhouette size. No pulmonary vascular congestion. No infiltrate or pleural effusion. Multilevel degenerative change of the dorsal spine. IMPRESSION: Possible cardiomegaly. No acute abnormality of the chest. No significant pulmonary vascular congestion. DICTATED BY: Renny David MD DATE/TIME DICTATED:08/27/17226 TRIALS MANAGER:ERWIN DATE/TIME TRANSCRIBED:08/27/17226 CONFIDENTIAL, DO NOT COPY WITHOUT APPROPRIATE AUTHORIZATION. <Electronically signed in Other Vendor System> SIGNED BY: Renny David MD 02/09/18 0232 Stress test: IMPRESSION: There is a small focal perfusion defect present in the mid anterior wall that appears reversible. Because of the small size of this it may represent an imaging artifact. No other definite perfusion abnormalities are noted. Left ventricular chamber is mildly dilated an shows diffuse moderately severe hypokinesis without a focal component. Left ventricular ejection fraction is moderately depressed. DICTATED BY: Juan Camilo MD DATE/TIME DICTATED:08/27/171418 TRIALS MANAGER:ERWIN DATE/TIME TRANSCRIBED:08/27/17 Assessment/Plan Assessment/Plan The patient is clinically better. She does not appear to be in congestive heart failure. The chest x-ray documented significant cardiomegaly but no vascular congestion. She has been placed on pulmonary embolism doses of Eliquis and diuretics to prevent congestive heart failure. I believe her cardiomyopathy is somewhat chronic at this time. I recommend that if the patient's stress test is negative she can be discharged for further outpatient follow-up. Continue telemetry? No
[2017-08-27] MEDS ORDERED: EDECRIN25 MG PO (14:25)
[2017-08-27] MEDS ORDERED: ELIQUIS5 M1 PO (14:25)
--- NOTE | 2017-08-27 14:34 | Patient Discharge Instructions ---
Discharge Instructions General Discharge Information You were seen/treated for: Shortness of breath Pulmonary Embolus Lower leg swelling Peripheral arterial disease Special Instructions: 1. Please follow up with the [facility] nurse (Dr. Mckeon) within 1 week. 2. Please follow up with your pcp (Dr. Tobin) within 1 week. 3. Please follow up with the agronomist (Dr. Phoenix) within 1-2 weeks of discharge. 4. Please follow up with the vascular surgeon (Dr. Rodríguez) in 1 week. 5. Please follow up with the freight traffic consultant (Dr. Yeager) 6. Please note that your antibiotic medication (bactrim) has been stopped as it may have attributed to your skin rash. Please do not take any more at home. Please follow up with your pcp for further evaluation of other antibiotic suppressive therapy. 7. Please take atarax and hydrocortisone cream for itching as needed. Please do not use the cream on your face. Please do not take benadryl or atarax at the same time. Diet Continue normal diet: No Recommended Diet: Diabetic, Regular no added salt Activity Full Activity/No Limits: No Activity Self Limited: Yes Acute Coronary Syndrome Inclusion Criteria At DC or during hospital stay patient has or had the following: ACS DIAGNOSIS No Discharge Core Measures Meds if any: Prescribed or Continued at Discharge Meds if any: NOT Prescribed or Continued at Discharge Congestive Heart Failure Inclusion Criteria At DC or during hospital stay patient has or had the following: CHF DIAGNOSIS Yes Discharge Core Measures Meds if any: Prescribed or Continued at Discharge JARED/ARB for EF <40% Yes Meds if any: NOT Prescribed or Continued at Discharge Cerebrovascular accident Inclusion Criteria At DC or during hospital stay patient has or had the following: CVA/TIA Diagnosis No Discharge Core Measures Meds if any: Prescribed or Continued at Discharge Meds if any: NOT Prescribed or Continued at Discharge Venous thromboembolism Inclusion Criteria VTE Diagnosis No VTE Type NONE VTE Confirmed by (Test) NONE Discharge Core Measures - Per Current guidelines, there needs to be overlap - treatment for the first 5 days of Warfarin therapy. - If discharged on Warfarin prior to 5 days of - overlap therapy, the patient will need to be - assessed for post discharge needs including - *Post discharge parental anticoagulation - *Warfarin and/or parental anticoagulation education - *Follow up date to check INR post discharge At least 5 days overlap therapy as Inpatient No Meds if any: Prescribed or Continued at Discharge Note: Overlap Therapy is Warfarin and Anticoagulant Meds if any: NOT Prescribed or Continued at Discharge
[2017-08-27] MEDS ORDERED: HYDROCORTISO453.6 G1 TOP (14:43)
--- NOTE | 2017-08-27 14:51 | NUCLEAR MEDICINE REPORT ---
PERSANTINE STRESS AND RESTING SPECT MYOCARDIAL PERFUSION IMAGING STUDY WITH GATED SPECT IMAGES: CLINICAL INDICATION: CHF PROCEDURE: Regional myocardial perfusion was assessed using a 1 day protocol. Stress images were obtained on 08/27/2017 following the intravenous administration of 18.5 mCi Tc 99m Myoview. Stress consisted of 45 mg Persantine given intravenously. Following the sestamibi injection no aminophylline was given intravenously. Rest images were obtained 08/27/2017 following the intravenous administration of 30.2 mCi Technetium 99m Myoview. Single photon emission tomographic (SPECT) images were obtained. SPECT images were acquired in a 64 x 64 matrix of 64 projections over 180 degrees. These were reconstructed into standard short axis, horizontal and vertical long axis cardiac projections. FINDINGS: The post stress images show the left ventricular chamber to be mildly dilated. There is a small focal perfusion defect present in the mid anterior wall. Activity in the other gorman appears normal. The rest images show some improvement in the mid anterior wall. Some decreased activity 1 the rest images which is more prominent than minimal appearing thickening present at the apex is noted but probably represents an imaging artifact. Activity in the other gorman appears normal and is unchanged from the post stress images. The images were obtained using a gated SPECT technique, which permits visualization of wall motion and calculation of the left ventricular ejection fraction. Left ventricular chamber is mildly dilated. There is moderately severe diffuse left ventricular hypokinesis, without a focal component. The calculated left ventricular ejection fraction is 33% on the stress study. No previous studies available for comparison. IMPRESSION: There is a small focal perfusion defect present in the mid anterior wall that appears reversible. Because of the small size of this it may represent an imaging artifact. No other definite perfusion abnormalities are noted. Left ventricular chamber is mildly dilated an shows diffuse moderately severe hypokinesis without a focal component. Left ventricular ejection fraction is moderately depressed.
[2017-08-27 15:28] VITALS: BP 120/66
[2017-08-27] MEDS ORDERED: DIPHENHYDRAMINE50 M1 PO (15:46)
--- NOTE | 2017-08-27 15:49 | IV DIPYRIDAMOLE NUCLEAR STRESS ---
Clinical Diagnosis: Congestive Heart Failure Ob/Gyn Nurse: Francis Saldivar IV DIPYRIDAMOLE INFUSED: 45 mg IV AMINOPHYLLINE INFUSED: 0 mg PATIENT WEIGHT: 164 lbs INTERPRETATION: The patient's baseline EKG showed nonspecific T changes and sinus rhythm at 103 BPM. Baseline B/P 122/80. The patient received 45 mg of dipyridamole infused intravenously over a 4 minute period. TC99M Myoview was injected after dipyridamole infusion. The patient tolerated the infusion well. There were no EKG changes seen following pharmacologic infusion. Arrhythmias: None IMPRESSION: The test was supervised by the interpreting Health Workers, who was in attendance during the entire test. No EKG evidence of stress induced myocardial ischemia. See separately dictated Nuclear Report.
--- NOTE | 2017-08-27 16:32 | Discharge Summary ---
Visit Information Visit Dates Admission Date: 08/24/17 Discharge Date: 08/28/17 Hospital Course Course Attending Physician: Sergio Yip MD Primary Care Physician: Heriberto Tobin MD Hospital Course: Patient is a 62 y/o female with a past medical history of asthma, paraplegia status post spinal infarct in 2001, homocystinemia, diabetes, peripheral neuropathy, urinary incontinence, hypertension, diabetes, pseudo-gout, and gallstone pancreatitis hospital post cholecystectomy in 2012 presenting with an 8 day history of shortness of breath that is worse on exertion with occasional nonproductive cough. On admission: Vitals: Temperature 96.9, pulse 118, RR 20, blood pressure 101/55, saturating 97 % on room air Labs: WBC 6.9, hemoglobin 12.3, hematocrit 39.1, platelet 219, neutrophils 78%, sodium 144, potassium 4.5, chloride 104, bicarbonate 25, BUN 23, creatinine 0.6, glucose 112, calcium 9.4, LFT unremarkable, troponin less than 0.01, proBNP INR 1.37 Imaging: CTA chest: 1. Scattered bilateral pulmonary emboli. 2. Cardiomegaly. Reflux of contrast into the inferior vena cava and hepatic veins suggests presence of tricuspid regurgitation and elevated right-sided cardiac pressures. No inward bowing of the interventricular septum. The RV/LV ratio is normal. 3. Mild pulmonary emphysema. 4. Small right pleural effusion. 5. Within the upper abdomen, the finding of pneumobilia is likely secondary to prior papillotomy. 2-D echo: Mild left ventricular dilatation. Moderately reduced global left ventricular systolic function. Moderately abnormal left ventricular ejection fraction estimated at 35-40%. No obvious regional wall motion abnormalities. Mild to moderate left atrial dilatation. Mild thickening/calcification of the mitral valve leaflets. Moderate to marked mitral regurgitation. Structurally normal trileaflet aortic valve. No aortic stenosis. There is mild aortic regurgitation. Right ventricular systolic pressure estimated to be elevated at 50- 55 mmHg. Moderate pulmonary hypertension. Dilated IVC. DVT Doppler: Normal triplex scan without evidence of deep venous thrombosis involving the bilateral lower extremities. Patient was initially admitted to the ICU and later transferred to telemetry for management of the followin. Bilateral pulmonary embolism with history of previous thromboembolic events Chest CT angiogram revealed scattered bilateral pulmonary emboli on admission. Patient was started on IV heparin and transitioned to Eliquis. Patient was seen by pulmonology, cardiology and hematology. Patient remained stable on anticoagulation and symptoms improved prior to discharge. * Patient to complete 7 days of eliquis 10mg BID followed by eliquis 5mg BID * Patient should follow-up with hematology for further hypercoagulable workup outpatient * Patients should follow up with pulmonology 2. Congestive heart failure with reduced ejection fraction of 30-35% and cardiomyopathy Patient had bilateral lower extremity edema, elevated BNP and echo showing reduced ejection fraction and high right ventricular systolic pressure and pulmonary hypertension. Patient was initially started on Lasix however experienced a drug rash and was subsequently transitioned to ethacrynic acid which she tolerated well. Patient had a Persantine stress test without evidence of ischemia. Etiology of cardiomyopathy is unclear however is likely chronic in nature. Patient started on carvedilol at this admission. * Continue ethacrynic acid and carvedilol * Continue monitoring daily weights and report if greater than 3 pound increase * Follow-up BEP on diuretic * Patient should follow-up with cardiology outpatient 3. Peripheral Vascular Disease. Patient noted to have a small right toe necrotic ulcer. Vascular surgery was consulted and patient had an arterial Doppler study showing right posterior tibialis and dorsalis pedis with near monophasic flow concerning for near occlusion. Patient on anticoagulation. * Patient requires further workup outpatient and close follow-up with vascular for HEATHER PVR studies and further management. 4. Skin Rash - shawnley drug allergy Patient experienced diffuse erythematous lacy pruiritic rash on her face, chest, back, upper arms and legs. Likely a drug rash from either Lasix or Bactrim which were discontinued. Patient was given Benadryl, steroids, hydrocortisone cream and Atarax as needed with improvement in symptoms. * Patient instructed to discontinue using Bactrim at home for suppressive therapy for repeated UTIs. If patient requires suppressive therapy other possibility to consider is Macrodantin. * Hydrocortisone cream 2.5% PRN and Atarax PRN 5. Hypertension * Continue losartan 6. Diabetes mellitus with peripheral neuropathy * Continue Januvia, glimepiride and Jardiance * Continue gabapentin and nortriptyline for neuropathic 7. Paraplegia status post spinal cord infarct * Offloading pressure points with heel pads as patient is paraplegic * Daily dressing for right toe ulcers (Big toe and 3rd toe) with Xeroform and Kerlix 8. History of asthma with emphysema on CT scan of chest * [facility] evaluation for nebulizer therapy * Oxygen as needed to keep PO2 greater than 92% 9. Depression * Continue by mouth sertraline 10. Ex-smokerquit 2 weeks ago * Patient refused nicotine patch DVT prophylaxis: Initially IV heparin, later switched to Eliquis CODE STATUS: Patient is full code Diet: Diabetic diet Allergies: Coded Allergies: hydromorphone (Severe, SEVERE REACTION (UNKNOWN) 08/24/17) codeine (UNKNOWN 08/24/17) imipenem (UNKNOWN 08/24/17) latex (UNKNOWN 08/24/17) Pertinent Lab Results: SERVICE DATE: 08/27/17 EXAM TYPE: NUC - MYOCARDIAL PERFUSION IMAGING PERSANTINE STRESS AND RESTING SPECT MYOCARDIAL PERFUSION IMAGING STUDY WITH GATED SPECT IMAGES: CLINICAL INDICATION: CHF PROCEDURE: Regional myocardial perfusion was assessed using a 1 day protocol. Stress images were obtained on 08/27/2017 following the intravenous administration of 18.5 mCi Tc 99m Myoview. Stress consisted of 45 mg Persantine given intravenously. Following the sestamibi injection no aminophylline was given intravenously. Rest images were obtained 08/27/2017 following the intravenous administration of 30.2 mCi Technetium 99m Myoview. Single photon emission tomographic (SPECT) images were obtained. SPECT images were acquired in a 64 x 64 matrix of 64 projections over 180 degrees. These were reconstructed into standard short axis, horizontal and vertical long axis cardiac projections. FINDINGS: The post stress images show the left ventricular chamber to be mildly dilated. There is a small focal perfusion defect present in the mid anterior wall. Activity in the other gorman appears normal. The rest images show some improvement in the mid anterior wall. Some decreased activity 1 the rest images which is more prominent than minimal appearing thickening present at the apex is noted but probably represents an imaging artifact. Activity in the other gorman appears normal and is unchanged from the post stress images. The images were obtained using a gated SPECT technique, which permits visualization of wall motion and calculation of the left ventricular ejection fraction. Left ventricular chamber is mildly dilated. There is moderately severe diffuse left ventricular hypokinesis, without a focal component. The calculated left ventricular ejection fraction is 33% on the stress study. No previous studies available for comparison. IMPRESSION: There is a small focal perfusion defect present in the mid anterior wall that appears reversible. Because of the small size of this it may represent an imaging artifact. No other definite perfusion abnormalities are noted. Left ventricular chamber is mildly dilated an shows diffuse moderately severe hypokinesis without a focal component. Left ventricular ejection fraction is moderately depressed. SERVICE DATE: 08/26/17- EXAM TYPE: RAD - XRY-CHEST XRAY, TWO VIEWS EXAMINATION: XR CHEST CLINICAL INFORMATION: Congestive heart failure. COMPARISON: Chest x-ray March 08, 2013 TECHNIQUE: 2 views of the chest were obtained. FINDINGS: Heart size appears enlarged but AP projection accentuates cardiac silhouette size. No pulmonary vascular congestion. No infiltrate or pleural effusion. Multilevel degenerative change of the dorsal spine. IMPRESSION: Possible cardiomegaly. No acute abnormality of the chest. No significant pulmonary vascular congestion. SERVICE DATE: 08/25/17141 EXAM TYPE: US - US-DUPLEX SCAN LOWER EXT ARTER EXAMINATION: US DUPLEX LOWER EXTREMITY ARTERY/GRAFT LIMITED, LEFT CLINICAL INFORMATION: Patient with PE. Gangrenous changes of the right foot. Patient is a vasculopath. COMPARISON: None TECHNIQUE: Real-time ultrasound and Doppler techniques (integrating B-mode 2-D vascular images, Doppler spectral analysis and color flow Doppler imaging) were utilized to interrogate the lower extremities. FINDINGS: Left lower extremity: Common femoral artery: 86 cm/sec; biphasic waveform Superficial femoral artery proximal: 77 cm/sec; triphasic waveform Superficial femoral artery mid portion: 56 cm/sec; biphasic waveform Superficial femoral artery distal: 64 cm/sec; biphasic waveform Profunda artery: 58 cm/sec; biphasic waveform Popliteal artery: 43 cm/sec; biphasic waveform Posterior tibial artery: 45 cm/sec; biphasic waveform Anterior tibial artery: Not seen Dorsalis pedis artery: 62 cm/sec; biphasic waveform IMPRESSION: Nonvisualization of the anterior tibial artery. Triphasic or biphasic flow seen throughout the remaining arteries of the left lower extremity. Greater sensitivity and specificity can be obtained with pre-and post exercise PVRs with HEATHER calculations. Also consider dedicated CTA for further anatomical detail. SERVICE DATE: 08/25/17- EXAM TYPE: US - US-DUPLEX SCAN LOWER EXT ARTER EXAMINATION: US DUPLEX LOWER EXTREMITY ARTERY/GRAFT LIMITED, RIGHT CLINICAL INFORMATION: Gangrenous right foot, absent dorsalis pedis pulse.. COMPARISON: Bilateral lower extremity venous Doppler study. TECHNIQUE: Sonographic evaluation of the right lower extremity arterial structures. FINDINGS: Common femoral artery: Flow velocity is 94 cm/s; normal triphasic arterial flow. Right profunda: Flow velocity is 37 cm/s; normal triphasic arterial flow. Femoral artery proximal: Flow velocity is 99 cm/s; normal triphasic arterial flow. Femoral artery mid: Flow velocity is 112 cm/s; normal triphasic arterial flow. Femoral artery distal: Flow velocity is 99 cm/s; normal triphasic arterial flow. Popliteal artery: Flow velocity is 99 cm/s; normal triphasic flow. Right [employer]: Flow velocity is 50 cm/s, there is spectral broadening, monophasic flow. Right peroneal artery: Nonvisualized. Right anterior tibial artery: Flow velocity is 93 cm/s, triphasic flow with mild spectral broadening. Right dorsalis pedis: Flow velocity is 72 cm/s, there is spectral broadening, near monophasic flow. IMPRESSION: 1. Decreased flow velocity in the posterior tibialis and dorsalis pedis arteries, with near monophasic flow. The findings are concerning for near occlusion. 2. The peroneal artery is not visualized. SERVICE DATE: 08/25/17- EXAM TYPE: CAT - CT ABD & PELVIS ANGIOGRAM EXAMINATION: CT ANGIOGRAM ABDOMEN AND PELVIS CLINICAL INFORMATION: Venous embolus. Bilateral pulmonary emboli. COMPARISON: CT angiogram chest from 08/24/2017 TECHNIQUE: Multiple axial images were obtained through the abdomen and pelvis following the administration of 95 mL of Optiray 320 intravenous contrast. Separate scans were performed in the arterial and venous phase. Coronal and sagittal reformatted images were obtained and reviewed. DLP: 1118 mGy-cm FINDINGS: Vascular: 1. The descending thoracic aorta is normal in course and caliber without dissection. 2. Normal origins of the celiac axis, superior mesenteric artery, and inferior mesenteric artery. Single left renal artery and 2 right renal arteries which are widely patent. 3. The abdominal aorta is normal in course and caliber without dissection. Mild scattered atherosclerotic calcifications. 4. The iliac vasculature and visualized femoral arterial vasculature is normal in caliber with no stenosis. Scattered atherosclerotic calcifications. 5. In the venous phase, the visualized profunda and superficial femoral veins are opacified. The common femoral veins are opacified bilaterally. 6. The bilateral iliac veins are well opacified. 7. The inferior vena cava is well opacified. The bilateral renal veins are well opacified. 8. The portal vein is patent.. Nonvascular: Bibasilar subsegmental atelectasis. Tiny pleural effusions. The heart is prominent. Small pericardial effusion. The liver is normal in size and shape. Normal attenuation of the liver. There is pneumobilia. The gallbladder is absent. The common bile duct is prominent, measuring 1.3 cm. Internal gas extends in the common bile duct as well. The pancreas is unremarkable. The spleen and adrenal glands are unremarkable. The kidneys are normal in size and position. There are symmetric nephrograms. Left upper pole renal cyst. No hydronephrosis or nephrolithiasis. The ureters are decompressed. The bladder is decompressed with a Tom catheter in place. The stomach is unremarkable. The small bowel is normal in caliber without obstruction. There is fecalization of the distal ileum suggesting slow transit. There is colonic diverticulosis without evidence of diverticulitis. Moderate colonic stool burden. No free air. Small volume of pelvic free fluid. There is no lymphadenopathy. Lobulated uterus with coarse calcifications noted suggestive of fibroids. No adnexal mass. No abdominal wall hernia. Mild anasarca. No acute or suspicious osseous abnormality. Multilevel degenerative changes throughout the spine. Degenerative changes of both hips. IMPRESSION: 1. No evidence of venous filling defect to suggest a thrombus. 2. No acute arterial vascular abnormality. Mild nonocclusive atherosclerotic disease. 3. Cholecystectomy. Pneumobilia with nonspecific dilatation of the common bile duct. 4. Colonic diverticulosis without diverticulitis. Moderate colonic stool burden. 5. Cardiomegaly. Small pericardial effusion. Tiny pleural effusions. 6. Fibroid uterus. Small volume of pelvic free fluid. SERVICE DATE: 08/24/17 EXAM TYPE: CARD - ECHOCARDIOGRAM VIDYA FREEMAN Age: 62 : 1955 Gender: F Exam Date: 08/24/2017 19:48 Exam Location: ER Ht (in): 63 Wt (lb): 150 BSA: 1.76 BP: 101 / 55 Ordering Physician: SALVADOR CASTLE MD Referring Physician: SALVADOR CASTLE MD Technologist: Marta Arango JEREMY Room Number: [id number] Indications: SHORTNESS OF BREATH Rhythm: Sinus Technical Quality: Fair FINDINGS Left Ventricle Mild left ventricular dilatation. Normal left ventricular wall thickness. Moderately reduced global left ventricular systolic function. Moderately abnormal left ventricular ejection fraction estimated at 35-40%. No obvious regional wall motion abnormalities. Right Ventricle Normal right ventricular size and function. Right Atrium Normal right atrial size. Left Atrium Mild to moderate left atrial dilatation. Mitral Valve Mild thickening/calcification of the mitral valve leaflets. Moderate to marked mitral regurgitation. Aortic Valve Structurally normal trileaflet aortic valve. No aortic stenosis. There is mild aortic regurgitation. Tricuspid Valve Structurally normal tricuspid valve. Mild tricuspid regurgitation. Right ventricular systolic pressure estimated to be elevated at 50- 55 mmHg. Moderate pulmonary hypertension. Pulmonic Valve Pulmonic valve not well visualized, grossly normal. Mild pulmonic regurgitation. Pericardium No pericardial or pleural effusion. Great Vessels Normal size aortic root. Dilated IVC. CONCLUSIONS Mild left ventricular dilatation. Moderately reduced global left ventricular systolic function. Moderately abnormal left ventricular ejection fraction estimated at 35-40%. No obvious regional wall motion abnormalities. Mild to moderate left atrial dilatation. Mild thickening/calcification of the mitral valve leaflets. Moderate to marked mitral regurgitation. Structurally normal trileaflet aortic valve. No aortic stenosis. There is mild aortic regurgitation. Right ventricular systolic pressure estimated to be elevated at 50- 55 mmHg. Moderate pulmonary hypertension. Dilated IVC. Heriberto Mckeon M.D. (Electronically Signed) Final Date: 24 August 2017 21:33 MEASUREMENTS (Male / Female) Normal Values 2D ECHO LV Diastolic Diameter PLAX 5.8 cm 4.2 - 5.9 / 3.9 - 5.3 cm LV Systolic Diameter PLAX 4.8 cm 2.1 - 4.0 cm LV Fractional Shortening PLAX 17.2 % 25 - 46 % LV Ejection Fraction 2D Teich 35.4 % IVS Diastolic Thickness 1.0 cm LVPW Diastolic Thickness 1.1 cm LV Relative Wall Thickness 0.4 RV Internal Dim ED PLAX 3.1 cm 1.9 - 3.8 cm LVOT Diameter 1.9 cm Aortic Root Diameter 2.8 cm LA Systolic Diameter LX 4.2 cm 3.0 - 4.0 / 2.7 - 3.8 cm LV Ejection Fraction MOD BP 38.5 % >= 55 % LV Diastolic Length 4C 8.0 cm 6.9 - 10.3 cm LV Diastolic Area 4C 35.2 cm LV Diastolic Volume MOD 4C 126.0 cm LV Ejection Fraction MOD 4C 37.3 % LV Stroke Volume MOD 4C 47.0 cm LV Systolic Length 4C 7.1 cm LV Systolic Area 4C 25.9 cm LV Systolic Volume MOD 4C 79.0 cm LV Ejection Fraction MOD 2C 32.9 % LV Diastolic Volume 4C AL 131.0 cm 85 - 139 / 69 - 109 cm LV Systolic Volume 4C AL 80.0 cm LV Ejection Fraction 4C AL 39.0 % LV Stroke Volume 4C AL 51.0 cm LV Ejection Fraction 2C AL 34.3 % LA Volume 71.0 cm 18 - 58 / 22 - 52 cm Ascending Aorta Diameter 2.7 cm DOPPLER AV Peak Velocity 131.0 cm/s AV Peak Gradient 6.9 mmHg AV Mean Velocity 83.7 cm/s AV Mean Gradient 3.0 mmHg AV Velocity Time Integral 22.0 cm LVOT Peak Velocity 59.5 cm/s LVOT Peak Gradient 1.4 mmHg LVOT Mean Velocity 39.2 cm/s LVOT Mean Gradient 1.0 mmHg LVOT Velocity Time Integral 9.7 cm LVOT Stroke Volume 27.4 cm AV Area Cont Eq vti 1.2 cm AV Area Cont Eq pk 1.3 cm MV Peak Velocity 168.0 cm/s MV Peak Gradient 11.3 mmHg MV Mean Velocity 84.6 cm/s MV Mean Gradient 4.0 mmHg Mitral E Point Velocity 156.0 cm/s MV PHT Velocity 171.0 cm/s MV Deceleration [place] 736.0 cm/s MV Pressure Half Time 69.7 ms MV Area PHT 3.2 cm MV Deceleration Time 222.0 ms TR Peak Velocity 318.0 cm/s TR Peak Gradient 40.4 mmHg Right Atrial Pressure 10.0 mmHg Pulmonary Artery Systolic Pressu 50.4 mmHg Right Ventricular Systolic Press 50.4 mmHg PV Peak Velocity 69.8 cm/s PV Peak Gradient 1.9 mmHg PV Mean Velocity 41.7 cm/s PV Mean Gradient 1.0 mmHg PV Velocity Time Integral 8.7 cm LV E' Lateral Velocity 7.0 cm/s Mitral E to LV E' Lateral Ratio 22.2 LV E' Septal Velocity 7.5 cm/s Mitral E to LV E' Septal Ratio 20.8 SERVICE DATE: 08/24/17 EXAM TYPE: US - US-EXT BILAT VENOUS DOPPLER EXAMINATION: US TRIPLEX OF LOWER EXTREMITIES, BILATERAL CLINICAL INFORMATION: Bilateral lower extremity swelling. Patient with a pulmonary embolism. COMPARISON: 09/12/2012 TECHNIQUE: Color-flow triplex imaging with spectral analysis and compression Doppler were performed on the bilateral lower extremities. FINDINGS: Respiratory variation, normal compression and augmented flow are noted throughout the bilateral lower extremities. The visualized common femoral vein, superficial femoral vein, profunda femoral vein, popliteal vein and midcalf peroneal and posterior tibial venous segments show no evidence of deep venous thrombosis. There is no Spencer's cyst. IMPRESSION: Normal triplex scan without evidence of deep venous thrombosis involving the bilateral lower extremities. Disposition Summary Disposition Principal Diagnosis: Bilateral Pulmonary Embolism Additional Diagnosis: CHF and cardiomyopathy, peripheral vascular disease Discharge Disposition: home health services Discharge Instructions General Discharge Information Code Status: Full Code Patient's Diet: Diabetic diet Patient's Activity: Wheelchair-bound, able to transfer from bed to chair independently Follow-Up Instructions/Appts: 1. Please follow up with the financial operations clerk (Dr. Mckeon) within 1 week. 2. Please follow up with your pcp (Dr. Tobin) within 1 week. 3. Please follow up with the senior php developer (Dr. Phoenix) within 1-2 weeks of discharge. 4. Please follow up with the vascular surgeon (Dr. Rodríguez) in 1 week. 5. Please follow up with the clean out driller (Dr. Yeager) 6. Please note that your antibiotic medication (bactrim) has been stopped as it may have attributed to your skin rash. Please do not take any more at home. Please follow up with your pcp for further evaluation of other antibiotic suppressive therapy. 7. Please take benadryl and hydrocortisone cream for itching as needed. Please do not use the cream on your face. Medications at Discharge Discharge Medications: Stop taking the following medications: Sulfamethoxazole/Trimethoprim (Bactrim 400-80 MG Tablet) 400 MG-80 MG TABLET ORAL DAILY Qty = 90 Continue taking these medications: Sertraline HCl (Sertraline HCl) 100 MG TABLET 1 Tablet ORAL DAILY Qty = 90 Comments: Last Taken:08/28/17 Time:10:00 AM Sitagliptin Phosphate (Januvia) 100 MG TABLET 1 Tablet ORAL DAILY Qty = 90 Comments: NOT GIVEN IN HOSPITAL Solifenacin Succinate (Vesicare) 5 MG TABLET 1 Tablet ORAL DAILY Qty = 90 Comments: DITROPAN GIVEN IN HOSPITAL Last Taken:08/27/17 Time:9:00 PM Losartan Potassium (Losartan Potassium) 25 MG TABLET 1 Tablet ORAL AT BEDTIME Qty = 90 Comments: Last Taken:08/27/17 Time:9:00 PM Gabapentin (Neurontin) 300 MG CAPSULE 1 Capsule ORAL 4 TIMES A DAY Comments: Last Taken:08/28/17 Time:2:00PM Lovastatin (Lovastatin) 40 MG TABLET 2 Tablet ORAL DAILY Qty = 180 Instructions: with food Comments: LIPITOR GIVEN IN HOSPITAL Last Taken:08/27/17 Time:5:00 PM Aspirin (Ecotrin*) 81 MG TABLET.DR 1 Tablet ORAL DAILY Comments: Last Taken:08/28/17 Time:10:00 AM Cyanocobalamin (Vitamin B-12) (Vitamin B-12) 500 MCG TABLET 1 Tablet ORAL TWICE DAILY Comments: Last Taken:08/28/17 Time:10:00 AM Pyridoxine HCl (Vitamin B-6) 50 MG TABLET 1 Tablet ORAL Three times a week Comments: GIVEN ONCE DAILY IN HOSPITAL Last Taken:08/28/17 Time:10:00 AM Empagliflozin (Jardiance) 25 MG TABLET 1 Tablet ORAL DAILY Qty = 30 Comments: NOT GIVEN IN HOSPITAL Glimepiride (Glimepiride) 4 MG TABLET 1 Tablet ORAL As Directed Qty = 135 Instructions: TAKE 2 MG IN AM AND 4 MG IN PM Comments: NOT GIVEN IN HOSPITAL Nortriptyline HCl (Pamelor) 50 MG CAPSULE 1 Capsule ORAL TAKE AT BEDTIME Qty = 90 Comments: NOT GIVEN IN HOSPITAL Lorazepam (Lorazepam) 0.5 MG TABLET 1 Tablet ORAL 2 x Daily as needed as needed for ANXIETY Qty = 120 Comments: NOT GIVEN IN HOSPITAL Cholecalciferol (Vitamin D3) (Vitamin D-3) 2,000 UNIT TABLET 2 Tablet ORAL DAILY Comments: Last Taken:08/28/17 Time:10:00 AM Start taking the following new medications: Apixaban (Eliquis) 5 MG TABLET 1 Tablet ORAL SEE INSTRUCTIONS Qty = 60 No Refills Instructions: See instructions below, Comments: Take 2 tabs in the morning and 2 tabs in the evening from 08/28 to 09/01. Take 1 tab in the morning and 1 tabs in the evening starting on 09/02. Last Taken:08/28/17 Time:10:00 AM Hydroxyzine Hydrochloride (Atarax) 25 MG TAB 1 Tablet ORAL 4 TIMES A DAY as needed for ITCHING Qty = 30 No Refills Instructions: Please take as directed only. Comments: Last Taken:08/28/17 Time:2:00 PM Ethacrynic Acid (Edecrin) 25 MG TABLET 2 Tablet ORAL DAILY Qty = 60 No Refills Instructions: Please take as directed. Comments: Last Taken:08/28/17 Time:10:00 AM Hydrocortisone (Hydrocortisone) 1 % CREAM..G. 1 Application On the skin THREE TIMES A DAY NEEDED as needed for ITCHING Qty = 1 No Refills Instructions: Please do not use on the face Comments: Last Taken:08/28/17 Time:05:00 AM Diphenhydramine HCl (Diphenhydramine HCl) 50 MG CAPSULE 50 Milligram ORAL EVERY SIX HOURS as needed for ITCHING Qty = 20 No Refills Comments: Last Taken:08/28/17 Time:05:00 AM Carvedilol (Carvedilol) 6.25 MG TABLET 1 Tablet ORAL TWICE DAILY Qty = 30 No Refills Comments: Last Taken:08/28/17 Time:10:00 AM Copies To: Mahad BORDEN,Heriberto Mejia Attending MD Review Statement Other Findings: The patient was seen on the day of discharge and agree with the plan of care as outlined. She continued with diffuse erythematous rash/dermatitis - most likely secondary to drug reaction. Onset of rash correlated with administration of IV Furosemide, so presumed this was the culprit. The patient had been on half-way suppressive Bactrim therapy and this was also discontinued. Only other new medication was Coreg and this was less likely culprit. May consider OP allergy testing. May need alternative suppressive antibiotic such as Macrodantin. She self cath's at home and has good technique (no recent infections). She is on Edecrin as her diuretic (non-sulfur loop diuretic) and will need to follow BEP, etc. Eliquis also begun for PE. Needs cardiology, pulmonary, heme follow-up. PCP will follow up dermatitis and decide on further Rx (on Atarax for itching).
[2017-08-27 22:30] VITALS: BP 120/64
[2017-08-28 06:35] VITALS: BP 112/60
--- NOTE | 2017-08-28 08:09 | PN- Housestaff ---
See Addendum Subjective Follow-up For: CHF with reduced ejection fraction Pulmonary embolism Peripheral vascular disease Subjective: Patient was seen and examined today. Patient states that she slept well for a few hours last night. However woke up at 4 AM due to the itching. Patient reports her itching has improved after having a bed bath. Patient denies any shortness of breath, fevers, chills, chest pain, palpitations, nausea/vomiting, constipation/diarrhea. No acute events overnight. Review of Systems Constitutional: Reports: no symptoms. Cardiovascular: Reports: no symptoms. Respiratory: Reports: no symptoms. Gastrointestinal: Reports: no symptoms. Genitourinary: Reports: no symptoms. Musculoskeletal: Reports: no symptoms. Skin: Reports: see HPI, rash. Objective Last 24 Hrs of Vital Signs/I&O Vital Signs Date Time Temp Pulse Resp B/P B/P Pulse O2 O2 Flow FiO2 Mean Ox Delivery Rate 08/28 0635 98.2 101 20 112/60 95 Room Air 08/27 2230 97.7 100 20 120/64 95 Room Air 08/27 2200 Room Air 08/27 2124 103 112/70 08/27 2124 103 112/70 08/27 1528 97.8 87 20 120/66 95 08/27 1016 100 120/67 Intake & Output 08/28 1600 08/28 0800 08/28 0000 Intake Total 120 120 Output Total 550 400 Balance -430 -280 Intake, Oral 120 120 Number 0 0 Bowel Movements Output, Urine 550 400 Physical Exam General Appearance: Alert, Oriented X3, Cooperative, No Acute Distress Skin: rash on face, chest, upper arms and legs improved Skin Temp/Moisture Exam: Warm/Dry HEENT: Mucous Membr. moist/pink Cardiovascular: Regular Rate, Normal S1, Normal S2 Lungs: Clear to Auscultation, Normal Air Movement Abdomen: Normal Bowel Sounds, Soft, No Tenderness Extremities: 1+ lower extremity edema, right foot with 3rd toe with dark ecchymotic area on plantar surface, mild erythema and minimal warmth, no open area or active discharge noted Vascular: nonpalpable pulses on R foot Current Medications: Current Medications Sig/Pita Start time Last Medication Dose Route Stop Time Status Admin Acetaminophen 650 MG Q6P PRN 08/24 2030 AC PO Apixaban 10 MG BID 08/26 1408 AC 08/28 PO 1034 Aspirin Buffered 81 MG DAILY 08/25 1000 AC 08/28 PO 1034 Atorvastatin Calcium 20 MG 1700 08/24 2100 AC 08/27 PO 1640 Carvedilol 6.25 MG BID 08/26 2200 AC 08/28 PO 1034 Cholecalciferol 4,000 IU DAILY 08/25 1000 AC 08/28 PO 1033 Cyanocobalamin 500 MCG BID 08/26 2200 AC 08/28 PO 1033 Diphenhydramine HCl 50 MG .STK-MED ONE 08/28 0002 DC IM 08/28 0003 Diphenhydramine HCl 25 MG ONCE ONE 08/27 2345 DC 08/28 IV 08/27 2346 0007 Diphenhydramine HCl 50 MG Q6P PRN 08/27 1800 AC 08/28 PO 0521 Diphenhydramine HCl 25 MG ONCE ONE 08/27 1545 DC 08/27 PO 08/27 1546 1641 Ethacrynic Acid 50 MG DAILY 08/27 1000 AC 08/28 PO 1035 Folic Acid 1 MG DAILY 08/26 1000 AC 08/28 PO 1034 Gabapentin 300 MG 4 TIMES/DAY 08/24 2200 AC 08/28 PO 1034 Hydrocortisone 1 ZULMA TIDPRN PRN 08/26 1015 AC 08/28 TOP 0521 Hydroxyzine HCl 25 MG 4 TIMES/DAY PRN 08/28 1400 UNVr PO Insulin Aspart 0 TIDAC 08/25 0800 AC 08/28 SC 1147 Insulin Aspart 0 AT BEDTIME 08/240 AC SC Lorazepam 0.5 MG BID PRN 08/24 2200 AC 08/28 PO 08/31 2059 0645 Losartan Potassium 25 MG AT BEDTIME 08/27 2200 AC 08/27 PO 2124 Morphine Sulfate 2 MG Q4P PRN 08/24 2030 AC IV Nortriptyline HCl 50 MG AT BEDTIME 08/24 2200 AC 08/27 PO 2124 Nystatin 1 ZUMLA BID PRN 08/27 1915 AC TOP Oxybutynin Chloride 2.5 MG BID 08/24 2200 AC 08/27 PO 2124 Pyridoxine HCl 50 MG DAILY 08/25 1000 AC 08/28 PO 1033 Senna/Docusate Sodium 1 TAB BID PRN 08/25 1100 AC 08/25 PO 1403 Sertraline HCl 100 MG DAILY 08/25 1000 AC 08/28 PO 1033 Simethicone 40 MG Q8P PRN 08/25 1130 AC 08/25 PO 1400 Last 24 Hrs of Lab/Philip Results Last 24 Hrs of Labs/Mics: Laboratory Tests 08/28/17 0107: Urine Color PINK H, Urine Clarity HAZY H, Urine pH 6.0, Ur Specific [place] 1.025, Urine Protein 100 H, Urine Ketones NEG, Urine Nitrite POS H, Urine Bilirubin NEG, Urine Urobilinogen 2.0 H, Ur Leukocyte Esterase TRACE H, Ur Microscopic SEDIMENT EXAMINED, Urine RBC >75 H, Urine WBC 15-25 H, Ur Epithelial Cells RARE, Urine Bacteria MANY H, Urine Hemoglobin LARGE H, Urine Glucose >=1000 H Microbiology 08/28 106 URINE ROUT: Urine Culture - RECD Assessment/Plan Assessment: Patient is a 62 y/o female with a past medical history of asthma, paraplegia status post spinal infarct in 2001, homocystinemia, diabetes, peripheral neuropathy, urinary incontinence, hypertension, diabetes, pseudo-gout, and gallstone pancreatitis hospital post cholecystectomy in 2012. She presents with an 8 day history of shortness of breath that is worse on exertion with occasional nonproductive cough. A CT angiogram of her chest showed scattered bilateral pulmonary embolisms along with Cardiomegaly and some signs of elevated RV pressures. She'll be admitted and monitored closely in the ICU for a pulmonary embolism. Intravenous anticoagulation with IV heparin. Of note, she does after to have a past history of thromboembolic events with spinal cord infarct and likely will require penitentiary anticoagulation. Patient has been switched to eliquis per cardiology recommendations. Patient stabilized and transferred to telemetry for management of the following: Problem list 1. Bilateral pulmonary embolism with history of previous thromboembolic events and homocystinemia 2. Congestive heart failure with reduced ejection fraction of 30-35% and cardiomyopathy 3. Peripheral vascular disease Hypertension 4. Skin rash likely drug allergy 5. Diabetes mellitus with peripheral neuropathy 6. Paraplegia status post spinal cord infarct 7. History of asthma with emphysema on CT scan of chest 8. Depression 9. Ex-smokerquit 2 weeks ago Plan 1. Bilateral pulmonary embolism with history of previous thromboembolic events and homocystinemia * Patient currently on eliquis 10mg BID for anticoagulation with pulmonary embolism protocol. Patient will require 7 days of eliquis 10mg BID followed by eliquis 5mg BID * Pulmonology, cardiology and hematology onboard. Appreciate recommendations * Monitor H&H 2. Cardiomyopathy with reduced ejection fraction of 30-35% and lower extremity swelling * CXR showing cardiomegaly with no pulmonary congestion or pleural effusions seen * Echo showing reduced ejection fraction and high right ventricular systolic pressure * Patient switched from lasix to ethacrynic acid due to possible drug allergy with lasix as it has a sulfa moiety which may be the culprit of patient's rash * monitor strict I/O and daily weights * Perstantine stress test done today without evidence of ischemia. Etiology of cardiomyopathy is unclear at this time. 3. Peripheral Vascular Disease. * Patient had a doppler arterial study showing right posterior tibialis and dorsalis pedis with near monophasic flow conserning for near occlusion * Patient currently on anticoagulation * Vascular surgery on board. Appreciate recommendations * Patient will require HEATHER PVR studies to be done outpatient and close follow up with vascular surgery 4. Skin Rash - likley drug allergy * Lasix and bactrim held - likely culprits * Give benadryl 50mg PO q6h PRN * Hydrocortisone cream 2.5% PRN * Atarax added today 5. Hypertension * Losartan * Monitor bp 6. Diabetes mellitus with peripheral neuropathy * Hold home medication of Januvia, glimepiride and Jardiance * Accu-Cheks 3 times a day before meals at bedtime * Start NovoLog sliding scale 3 times a day before meals at bedtime * Continue gabapentin and nortriptyline for neuropathic 7. Paraplegia status post spinal cord infarct * Offloading pressure points with heel pads as patient is paraplegic * Daily dressing for Right toe ulcers (Big toe and 3rd toe) 8. History of asthma with emphysema on CT scan of chest * [facility] evaluation for nebulizer therapy * Oxygen as needed to keep PO2 greater than 92% 9. Depression * Continue sertraline 10. Ex-smokerquit 2 weeks ago * Patient refused nicotine patch DVT prophylaxis: On eliquis CODE STATUS: Patient is full code Diet: Diabetic diet Dispo: Patient's rash today has improved. However continues to complain of itching and was given Atarax as needed. Will monitor today and discharge home tomorrow with close follow up with vascular, cardiology, pulmonology and hematology Problem List: 1. Pulmonary embolus Pain Ratin Pain Location: n/a Pain Goal: Remain pain free Pain Plan: n/a Tomorrow's Labs & Rationales: none- discharge home today
[2017-08-28] MEDS ORDERED: HYDROXYZINE HCL25 M2 PO ×2 (14:02→14:14)
[2017-08-28] MEDS ORDERED: ELIQUIS5 M1 PO (14:14)
[2017-08-28] MEDS ORDERED: HYDROCORTISO453.6 G1 TOP (14:14)
[2017-08-28] MEDS ORDERED: EDECRIN25 MG PO (14:14)
[2017-08-28] MEDS ORDERED: CARVEDILOL6.25 M1 PO (14:14)
[2017-08-28 14:39] VITALS: BP 108/62
== END 2017-08-28 16:22 | disposition home health service (06) | DRG 176 ==
LOC: ERH 17:16 → ERHI 18:29 → CRI 18:29 → 1NO 18:29 → ENRESERV 20:17 → ENTRNSPT 21:09 → EDTRNSPTSTS 21:33 → EDTRNSPT 21:33 → CRI 21:40 → CMPTRNSPT 21:44 → 1NO 08-25 15:24 → ENPENDDIS 08-28 15:44 → 1NO 08-28 16:22
PROVIDERS: Internal Medicine; Internal Medicine Infectious Disease; Internal Medicine Pulmonary Disease; Physician Assistant; Student in an Organized Health Care Education/Training Program
DX: I26.99 Other pulmonary embolism without acute cor pulmonale (principal); E11.42 Type 2 diabetes mellitus with diabetic polyneuropathy; E11.51 Type 2 diabetes mellitus with diabetic peripheral angiopathy without gangrene; E72.11 Homocystinuria; G82.20 Paraplegia, unspecified; L97.518 Non-pressure chronic ulcer of other part of right foot with other specified severity; I42.9 Cardiomyopathy, unspecified; I50.22 Chronic systolic (congestive) heart failure; Z99.3 Dependence on wheelchair; R60.0 Localized edema; F32.9 Major depressive disorder, single episode, unspecified; J43.9 Emphysema, unspecified; I27.20 Pulmonary hypertension, unspecified; I11.0 Hypertensive heart disease with heart failure; R32 Unspecified urinary incontinence; L25.8 Unspecified contact dermatitis due to other agents; T50.1X5A Adverse effect of loop [high-ceiling] diuretics, initial encounter; T37.0X5A Adverse effect of sulfonamides, initial encounter; Y92.239 Unspecified place in hospital as the place of occurrence of the external cause; M62.562 Muscle wasting and atrophy, not elsewhere classified, left lower leg; M62.561 Muscle wasting and atrophy, not elsewhere classified, right lower leg; E78.5 Hyperlipidemia, unspecified; K21.9 Gastro-esophageal reflux disease without esophagitis; Z87.891 Personal history of nicotine dependence; I36.1 Nonrheumatic tricuspid (valve) insufficiency; I27.29 Other secondary pulmonary hypertension
CPT/HCPCS: 1NSP; CCU; 36415; 71046; 74174; 78452; 81001; 82436; 87086; 93005; 93010; 93016; 93017; 93306; 93970; 97161-GP; 97530-GO; A9502; J1200; J1245; J1644; J2920; J3490